=== PATIENT | female | born 1940 | race Two or more races ===

== ENCOUNTER 2023-01-31 07:38 | Outpatient (AMB) | payer OTHER, MEDICAID, SELFPAY ==
[2023-01-31 07:46] VITALS: BP 104/52; PULSE 71; O2SAT 96; BMI 37.8
--- NOTE | 2023-01-31 07:46 | MHC.PC.OV ---
Vital Signs 01/31/23 07:46 Height 4 ft 11 in Weight 187 lb BMI 37.8 BP 104/52 L Blood Pressure Location Lt brachial Position Sitting Pulse 71 Pulse Source Pulse Oximeter Pulse Oximetry (%) 96 Oxygen Delivery Method Room Air Intake Visit Reasons: [facility] care Patents Examiner Required: Yes Patents Examiner Name: [id number] Information Interpreted: non-clinical & clinical Allergies No Known Allergies Allergy (Verified 01/31/23 08:12) Medication List - Last Reconciled 01/31/23 by JIM Ford amlodipine 5 mg PO DAILY bisoprolol fumarate 5 mg PO DAILY fluticasone furoate-vilanterol 200-25 mcg/dose (Breo Ellipta) 1 inh inhalation DAILY gabapentin 600 mg PO DAILY isosorbide mononitrate ER 30 mg PO DAILY loratadine (Allergy Relief (loratadine)) 10 mg PO DAILY losartan 100 mg PO DAILY montelukast (Singulair) 10 mg PO DAILY sitagliptin phos-metformin 50-1,000 mg (Janumet) 1 tab PO BID spironolactone 25 mg PO DAILY Tobacco use date assessed: 01/31/23 Fall risk assessment: No Falls in past year Last assessed Fall Risk: 01/31/23 Dental Screening Dental Screen Date: 01/31/23 Did you have a dental visit in the last 12 months?: No Did you have a dental problem in the last 6 months where you did not have access to dental care?: No Was dental information given to patient?: No HPI HPI Comments History of Present Illness Details 82-year-old female new patient presents today to establish care. Past medical history significant for hypertension, type 2 diabetes mellitus, asthma, right knee arthritis and history of cardiac catheterization 3 years ago. Patient reports cardiac catheterization was unremarkable. Patient reports was previously followed by glaze supervisor and anesthesiologist and critical care. Referrals entered. Patient requiring prescriptions on all her medications, herbal medications sent. Patient does report ongoing right knee pain related to arthritis patient requesting refill on diclofenac by mouth, will send diclofenac cream to use as needed q.i.d. for arthritis pain. Complete fasting lab work ordered. Previous pcp in [place], Sami MARC Surgical History (Updated 01/31/23 @ 08:33 by JIM Ford) H/O cardiac catheterization Hx of cholecystectomy H/O total hysterectomy Family History (Updated 01/31/23 @ 08:22 by JIM Ford) Mother No problems noted. Father Diabetes Sister Breast cancer Sister Breast cancer Sister Liver cancer Social History (Updated 01/31/23 @ 08:23 by JIM Ford) Household Members: Family Housing: Other Alcohol intake: never Patient Tobacco Use Status: Never used Tobacco e-Cigarette/Vaping Use: Never Used Second Hand Smoke Exposure: No Current occupational status: disabled Cognitive needs: No Hearing needs: No Vision needs: Yes Questionnaire PHQ-9 Over the last 2 weeks, how often have you been bothered by any of the following problems? 1. Little interest or pleasure in doing things: not at all 2. Feeling down, depressed, or hopeless: not at all 3. Trouble falling or staying asleep, or sleeping too much: not at all 4. Feeling tired or having little energy: not at all 5. Poor appetite or overeating: not at all 6. Feeling bad about yourself - or that you are a failure or have let yourself or your family down: not at all 7. Trouble concentrating on things, such as reading the newspaper or watching television: not at all 8. Moving or speaking so slowly that other people could have noticed. Or the opposite - being so fidgety or restless that you have been moving around a lot more than usual: not at all 9. Thoughts that you would be better off or of hurting yourself in some way: not at all Total score: 0 Depression Screening Interpretation: Negative 50805 - PHQ-9 Billing: Yes Source: Developed by Drs. Kenneth Urban, Kelli Rowland, Mandeep Bangura and colleagues, with an educational sandeep from [employer]. Thrive Questionnaire Date Thrive assessed: 01/31/23 I am a: Patient What is your living situation today?: I have a steady place to live Within the past 12 months, did the food you bought not last and you didn't have the money to get more?: Never true Within the past 12 months, did you worry whether your food would run out before you got money to buy more?: Never true Do you have trouble paying for medicines?: No Do you have trouble getting transportation to medical appointments?: No Do you have trouble paying your heating and electricity bill?: No Do you have trouble taking care of your child, family member or friend?: No Do you have trouble with day-to-day activities such as bathing, preparing meals, shopping, managing finances, etc.?: No Are you currently unemployed and looking for a job?: No Are you interested in more education?: No Currently or been in a relationship where the following occur: no concerns reported AUDIT C Alcohol Use Questionnaire (AUDIT-C) 1. How often do you have a drink containing alcohol?: Never 3. How often do you have six or more drinks on one occasion?: Never Total Score: 0 BRADY-7 AMB Questionnaire BRADY-7 Date BRADY - 7 assessed: 01/31/23 Feeling nervous, anxious, or on edge: 0 = Not at all Not being able to stop or control worryin = Not at all Worrying too much about different things: 0 = Not at all Trouble relaxin = Not at all Being so restless that it is hard to sit still: 0 = Not at all Becoming easily annoyed or irritable: 0 = Not at all Feeling afraid as if something awful might happen: 0 = Not at all Total BRADY-7 score (0-4 normal; 5-9 mild; 10-14 moderate; 15-21 severe): 0 Source: Developed by Drs. Kenneth Urban, Kelli Rowland, Mandeep Bangura and colleagues, with an educational sandeep from [employer]. BRADY-7 Assessment Billing BRADY-7 Assessment Tool: BRADY-7 Assessment 17645 Review of Systems Const Denies chills, Denies fatigue, Denies fever(s) and Denies poor appetite Eyes Denies no additional complaints ENT Reports Normal hearing present Card Denies chest pain, Denies syncope, Denies rapid heart rate and Denies dyspnea Resp Denies cough and Denies dyspnea GI Denies change in stool character, Denies constipation, Denies diarrhea, Denies nausea and Denies vomiting Denies urinary frequency, Denies dysuria and Denies urinary urgency Neuro Reports Normal hearing present, Denies confusion and Denies syncope Psych Denies confusion Endo Denies fatigue Physical exam (Primary Care) Vital Signs: Last Vital Signs Pulse 71 01/31/23 07:46 BP 104/52 L 01/31/23 07:46 Pulse Ox 96 01/31/23 07:46 Oxygen Delivery Method Room Air 01/31/23 07:46 BMI result Body Mass Index 37.8 Tobacco/Smoking Status: Tobacco use Status Tobacco use date assessed 01/31/23 01/31/23 08:00 Patient Tobacco Use Status Never used Tobacco 01/31/23 08:23 e-Cigarette/Vaping Use Never Used 01/31/23 08:23 PHQ-9: PHQ-9 Score PHQ-9: Total score 0 01/31/23 08:09 Depression Screening Interpretation: Negative Thrive Assessment: Date of Thrive Assessment Date Thrive assessed 01/31/23 01/31/23 08:00 Currently or been in a relationship where the following occur: no concerns reported Const General: No confusion Orientation/consciousness: No confusion HENMT Head: Yes normocephalic and Yes atraumatic Eyes Conjunctivae: conjunctivae normal Chest Chest palpation & inspection: normal inspection of the chest Resp Effort & Inspection: normal respiratory effort Auscultation: clear to auscultation bilaterally, no crackles, no rhonchi and no wheezes Cardio Rate: regular rate Rhythm: regular rhythm Heart sounds: S1 normal heart sound present and S2 normal heart sound present Peripheral pulses: dorsalis pedis present GI Inspection: Yes normal to inspection General: Yes no CVA tenderness Back/Spine/Pelvis Back: no CVA tenderness Neuro General: No confusion Cranial nerves: Yes Normal hearing present Extrem General: No edema Results AMB Hemoglobin A1c AMB Hemoglobin A1c 6.3 % Last Edit by Meme Sauer CMA on 01/31/23 08:10 Results Reviewed Results Reviewed: Laboratory Last Values Hgb A1c (Clinic) 6.3 % (4.0-6.0) H 01/31/23 08:00 Assessment and Plan Assessment & Plan (1) Asthma: Code(s): J45.909 - Unspecified asthma, uncomplicated Plan: Continue on Breo Ellipta Referral placed to establish care with pulmonology. (2) H/O cardiac catheterization: Code(s): Z98.890 - Other specified postprocedural states Plan: Referral entered to Cardiology. (3) Arthritis of right knee: Code(s): M17.11 - Unilateral primary osteoarthritis, right knee Plan: Diclofenac cream sent to patient's pharmacy to apply to right knee for arthritis pain as needed. (4) Type 2 diabetes mellitus: Code(s): E11.9 - Type 2 diabetes mellitus without complications Plan: Hemoglobin A1c and fasting glucose ordered. Continue on Janumet 1 tab b.i.d. Patient educated to decrease the amount of carbohydrate intake such as pasta, bread, rice and potatoes are all sugar in addition to the sweet stuff. Remember that fruits are good but they also have sugar. (5) Hypertension: Code(s): I10 - Essential (primary) hypertension Plan: Continue on losartan 100 mg daily, Imdur, bisoprolol and spironolactone 25 mg daily. Follow low-salt diet exercise. Plan Follow-up in 3 months for physical exam. Orders: Orders AMB Hemoglobin A1c Today Z13.9 - Encounter for screening, unspecified TSH reflex Free T4 Today Z13.29 - Encounter for screening for other suspected endocrine disorder Complete Blood Count Auto Diff Today Z13.0 - Encounter for screening for diseases of the blood and blood-forming organs and certain disorders involving the immune mechanism Comprehensive [place]. Panel Fast Today E11.9 - Type 2 diabetes mellitus without complications Lipid Panel Today Z13.220 - Encounter for screening for lipoid disorders Hemoglobin A1c Today E11.9 - Type 2 diabetes mellitus without complications Vitamin D 25-OH Total Today Z13.21 - Encounter for screening for nutritional disorder Referrals Pulmonology Referral J45.909 - Unspecified asthma, uncomplicated Cardiology Referral Z98.890 - Other specified postprocedural states Medications: New fluticasone furoate-vilanterol 200-25 mcg/dose (Breo Ellipta) 1 inh inhalation DAILY 60 ea 1RF loratadine (Allergy Relief (loratadine)) 10 mg PO DAILY 30 tabs 3RF losartan 100 mg PO DAILY 30 tabs 3RF montelukast (Singulair) 10 mg PO DAILY 30 tabs 3RF spironolactone 25 mg PO DAILY 30 tabs 3RF sitagliptin phos-metformin 50-1,000 mg (Janumet) 1 tab PO BID 60 tabs 3RF amlodipine 5 mg PO DAILY 30 tabs 3RF bisoprolol fumarate 5 mg PO DAILY 30 tabs 3RF isosorbide mononitrate ER 30 mg PO DAILY 30 tabs 3RF sitagliptin phos-metformin 50-1,000 mg (Janumet) 1 tab PO BID 30 tabs 3RF gabapentin 600 mg PO DAILY 30 tabs 0RF diclofenac sodium 1% (Arthritis Pain (diclofenac)) apply to single elbow, wrist or hand; for hand includes palm/fingers/back of hand 2 grams topical QID 100 grams 0RF M17.11 - Unilateral primary osteoarthritis, right knee Coding Level of Care Code New Pt Level 4 (67647) Diagnoses Asthma J45.909 H/O cardiac catheterization Z98.890 Arthritis of right knee M17.11 Type 2 diabetes mellitus E11.9 Hypertension I10 Additional Codes BRADY-7 Assessment Billing - BRADY-7 Assessment Tool: BRADY-7 Assessment 94076 ([id number])
== END 2023-01-31 08:35 | disposition home or self-care (01) ==
PROVIDERS: PCP Nurse Practitioner Family; Visit Provider Nurse Practitioner Family
DX: J45.909 Unspecified asthma, uncomplicated (principal); Z98.890 Other specified postprocedural states; M17.11 Unilateral primary osteoarthritis, right knee; E11.9 Type 2 diabetes mellitus without complications; I10 Essential (primary) hypertension; Z13.9 Encounter for screening, unspecified
CPT/HCPCS: 83036; 99204

== ENCOUNTER 2023-05-10 14:26 | Outpatient (AMB) | payer MEDICARE, MEDICAID, SELFPAY ==
[2023-05-10 14:31] VITALS: BP 132/57; PULSE 73; O2SAT 95; BMI 35.2
--- NOTE | 2023-05-10 14:31 | MHC.OFFVIS ---
Intake Vital Signs 05/10/23 14:31 Height 4 ft 11 in Weight 174 lb 2.643 oz BMI 35.2 BP 132/57 L Blood Pressure Location Rt brachial Position Sitting Pulse 73 Pulse Source Doppler Pulse Oximetry (%) 95 Oxygen Delivery Method Room Air Intake Visit Reasons: Asthma Allergies gluten Adverse Reaction (Intermediate, Uncoded 05/10/23 14:35) Diarrhea HPI Asthma HPI Details 83-year-old lady, lifetime nonsmoker, with underlying history of asthma and pulmonary nodule previously evaluated with PET referred for pulmonary evaluation. Patient states that she has had asthma for approximately 30 years. She has been using Breo and albuterol MDI with reasonable control of her symptoms. Patient states that she has had remote PET scan to evaluate lung nodule, but she has not show about results. She does complain of environmental allergies. She does have a dog as a pet. 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 [facility] Surgical History (Updated 01/31/23 @ 08:33 by JIM Ford) H/O cardiac catheterization Hx of cholecystectomy H/O total hysterectomy Family History (Updated 01/31/23 @ 08:22 by JIM Ford) Mother No problems noted. Father Diabetes Sister Breast cancer Sister Breast cancer Sister Liver cancer Social History Household Members: Family Housing: Other Alcohol intake: never Patient Tobacco Use Status: Never used Tobacco e-Cigarette/Vaping Use: Never Used Second Hand Smoke Exposure: No Current occupational status: disabled Cognitive needs: No Hearing needs: No Vision needs: Yes Review of Systems Const Denies daytime sleepiness, Denies excessive sweating, Denies fatigue, Denies fever(s), Denies lethargy, Denies malaise, Denies night sweats, Denies snoring and Denies weight loss Eyes Denies blurry vision and Denies itchy eyes ENT Denies nasal congestion, Denies post nasal drip, Denies sinus pain, Denies sinus pressure and Denies other ( Thrush) Card Denies chest pain, Denies pedal edema, Denies dyspnea, Denies orthopnea and Denies paroxysmal nocturnal dyspnea Resp Denies cough, Denies hemoptysis, Denies excessive phlegm production, Denies dyspnea, Denies snoring and Denies wheezing GI Denies abdominal pain and Denies heartburn Musc Denies myalgias, Denies arthralgias and Denies joint swelling Skin/Breast Denies rash Neuro Denies memory loss and Denies seizure-like activity Psych Denies abnormal sleep pattern, Denies anxiety and Denies memory loss Endo Denies excessive sweating, Denies fatigue and Denies heat intolerance Ángel/Lymph Denies easy bruising Aller/Immun Denies itchy eyes, Denies seasonal rhinorrhea and Denies wheezing Physical Exam Vital Signs: Last Vital Signs Pulse 73 05/10/23 14:31 BP 132/57 L 05/10/23 14:31 Pulse Ox 95 05/10/23 14:31 Oxygen Delivery Method Room Air 05/10/23 14:31 BMI result Body Mass Index 35.2 Const General: no acute distress and alert Nutritional Appearance: obese Orientation/consciousness: Other orientation findings ( oriented) HEENT Head: Yes atraumatic Eyes General: appearance normal, both eyes and all related structures Sclerae: sclerae normal EOM: EOMs intact bilaterally Neck Neck: Yes supple Lymphatic: no lymphadenopathy noted Resp Effort & Inspection: normal respiratory effort and no use of accessory muscles Auscultation: clear to auscultation bilaterally Cardio Rate: regular rate Rhythm: regular rhythm Heart sounds: no gallops, no murmurs and no rubs Skin General skin exam: other ( warm) Extrem General: No clubbing, No cyanosis and No edema Assessment & Plan Assessment & Plan (1) Asthma: Code(s): J45.909 - Unspecified asthma, uncomplicated Plan: At this time reasonably well controlled on Breo and albuterol MDI. Will obtain full PFT. (2) Pulmonary nodule 1 cm or greater in diameter: Code(s): R91.1 - Solitary pulmonary nodule Plan: Previously evaluated with PET. Will obtain CT chest for further evaluation. (3) Environmental allergies: Code(s): Z91.09 - Other allergy status, other than to drugs and biological substances Plan: Will obtain IgE level and RAST panel for further evaluation. Orders: Orders Complete Blood Count Auto Diff Today Z91.09 - Other allergy status, other than to drugs and biological substances PFT pulmonary function test Today J45.909 - Unspecified asthma, uncomplicated Resp Allergy Profile Region I Today J45.909 - Unspecified asthma, uncomplicated CT chest wo IV con Today R91.1 - Solitary pulmonary nodule Coding Level of Care Code New Pt Level 4 (11840) Diagnoses Asthma J45.909 Pulmonary nodule 1 cm or greater in diameter R91.1 Environmental allergies Z91.09
== END 2023-05-10 14:54 | disposition home or self-care (01) ==
PROVIDERS: PCP Nurse Practitioner Family; Referring Provider Nurse Practitioner Family; Visit Provider Internal Medicine Pulmonary Disease
DX: J45.909 Unspecified asthma, uncomplicated (principal); R91.1 Solitary pulmonary nodule; Z91.09 Other allergy status, other than to drugs and biological substances
CPT/HCPCS: 99204

== ENCOUNTER 2023-05-10 14:26 | Outpatient (REF) | payer MEDICARE, SELFPAY ==
[2023-05-10 15:17] LABS: MANUAL DIFF FLAG NO
[2023-05-10 15:34] LABS: Basophils Percent Auto 0.3 % (0-2); Eosinophils Percent Auto 0.6 % (0-4); Hematocrit 34.7 % (37.0-47.0); Imm Gran Abs Auto 0.02 X10*3/uL (0.00-0.03); Imm Gran Pct Auto 0.3 % (0.0-0.4); Lymphocytes Absolute Auto 1.4 X10*3/uL (1.2-4.9); Lymphocytes Percent Auto 21.5 % (20-40); Mean Corpuscular HGB Conc 31.7 g/dl (31.0-35.0); Mean Corpuscular Hemoglobin 28.4 pg (27.0-33.0); Mean Corpuscular Volume 89.4 fL (80.0-98.0); Mean Platelet Volume 10.5 fL (9.4-12.3); Monocytes Absolute Auto 0.7 X10*3/uL (0.1-1.2); Monocytes Percent Auto 9.9 % (2-11); Neutrophils Absolute Auto 4.5 x10*3/uL (2.0-8.3); Neutrophils Percent Auto 67.4 % (45-73); Platelet Count 214 X10*3/uL (160-400); Red Blood Count 3.88 X10*6/uL (4.20-5.50); Red Cell Distribution Width 14.4 % (11.0-16.0); White Blood Count 6.6 X10*3/uL (4.8-10.8)
[2023-05-12 19:14] LABS: Class Alternaria alternata 0; Class Aspergillus fumigatus 0; Class Bermuda Grass 0; Class Birch 0; Class Cat Dander 0/1; Class Cladosporium herbarum 0; Class Cockroach 0; Class Common Ragweed 3; Class Cottonwood 0; Class Derm. pterony 3; Class Dermatophagoides farinae 2; Class Dog Dander 3; Class Elm 0; Class Maple Box Elder 0; Class Mountain Cedar 0; Class Mouse Urine Protein 0; Class Mugwort 0; Class Oak 0; Class Penicillium crysogenum 0; Class Rough Pigweed 0; Class Sheep Sorrel 0; Class Sycamore 0; Class Timothy Grass 0; Class Walnut Tree 0; Class White Ash 0; Class White Mulberry 0; D001 IgE D pteronyssinus 4.32 kU/L; D002 - IgE D farinae 2.55 kU/L; E001 - IgE Cat Dander 0.33 kU/L; E005 - IgE Dog Dander 4.12 kU/L; E072-IgE Mouse Urine <0.10 kU/L; G002 IgE Bermuda Grass <0.10 kU/L; G006 - IgE Timothy Grass <0.10 kU/L; I006-IgE Cockroach, German <0.10 kU/L; Immunoglobulin E 70 kU/L (<OR=114); M001 IgE Penicillium chrysogen <0.10 kU/L; M002 - IgE Cladosporium herbar <0.10 kU/L; M003 - IgE Aspergillus fumigat <0.10 kU/L; M006 - IgE Alternaria alternat <0.10 kU/L; T001 IgE Maple/Box Elder <0.10 kU/L; T003 IgE Common Silver Birch <0.10 kU/L; T006 - IgE Cedar, Mountain <0.10 kU/L; T007 - IgE Oak, White <0.10 kU/L; T008 IgE Elm, American <0.10 kU/L; T010 - IgE Walnut <0.10 kU/L; T011 - IgE Maple Leaf Sycamore <0.10 kU/L; T014 - IgE Cottonwood <0.10 kU/L; T015 - IgE Ash, White <0.10 kU/L; T070 - IgE White Mulberry <0.10 kU/L; W001 - IgE Ragweed, Short 8.68 kU/L; W006 - IgE Mugwort <0.10 kU/L; W014 IgE Pigweed, Common <0.10 kU/L; W018 IgE Sheep Sorrel <0.10 kU/L
== END 2023-05-10 14:27 | disposition home or self-care (01) ==
LOC: HO.LAB 14:26
PROVIDERS: PCP Nurse Practitioner Family; Referring Provider Nurse Practitioner Family; Visit Provider Internal Medicine Pulmonary Disease
DX: J45.909 Unspecified asthma, uncomplicated (principal); Z91.09 Other allergy status, other than to drugs and biological substances; R91.1 Solitary pulmonary nodule
CPT/HCPCS: 36415; 82785; 85025; 86003; 99202

== ENCOUNTER 2023-05-27 10:04 | Outpatient (REF) | payer MEDICARE, SELFPAY ==
[2023-05-27 10:31] LABS: MANUAL DIFF FLAG NO
[2023-05-27 11:07] LABS: Basophils Percent Auto 0.4 % (0-2); Eosinophils Absolute Auto 0.1 X10*3/uL (0.0-0.4); Eosinophils Percent Auto 2.2 % (0-4); Hemoglobin 11.2 g/dl (12.0-16.0); Imm Gran Abs Auto 0.01 X10*3/uL (0.00-0.03); Imm Gran Pct Auto 0.2 % (0.0-0.4); Lymphocytes Absolute Auto 1.1 X10*3/uL (1.2-4.9); Lymphocytes Percent Auto 24.3 % (20-40); Mean Corpuscular Hemoglobin 28.6 pg (27.0-33.0); Mean Corpuscular Volume 89.3 fL (80.0-98.0); Mean Platelet Volume 10.6 fL (9.4-12.3); Monocytes Absolute Auto 0.5 X10*3/uL (0.1-1.2); Neutrophils Absolute Auto 2.9 x10*3/uL (2.0-8.3); Neutrophils Percent Auto 62.9 % (45-73); Platelet Count 193 X10*3/uL (160-400); Red Blood Count 3.92 X10*6/uL (4.20-5.50); Red Cell Distribution Width 14.6 % (11.0-16.0); White Blood Count 4.6 X10*3/uL (4.8-10.8)
[2023-05-27 11:33] LABS: Alanine Aminotransferase 10 U/L (0-31); Albumin Level 3.6 g/dL (3.5-5.0); Alkaline Phosphatase 62 U/L (39-117); Anion Gap 16 (12-20); Aspartate Amino Transferase 16 U/L (5-31); Bilirubin Total 0.4 mg/dL (0.0-1.0); Blood Urea Nitrogen 17 mg/dL (9-16); Calcium 9.7 mg/dL (8.4-10.2); Carbon Dioxide 26 mmol/L (22-29); Chloride 107 mmol/L (96-108); Cholesterol 183 mg/dL (<200); Estimated Glomerular Filt Rate 41; Glucose Fasting 142 mg/dL (60-99); HDL Cholesterol 50 mg/dL (>40); LDL Cholesterol Calculated 111 mg/dL (<100); Potassium 4.5 mmol/L (3.3-5.1); Sodium 144 mmol/L (135-145); Total Protein 7.1 g/dL (6.5-8.0); Triglycerides 113 mg/dL (<150)
[2023-05-27 11:38] LABS: Estimated Average Glucose 131 mg/dL; Hemoglobin A1c % 6.2 % (<6.0)
[2023-05-27 11:49] LABS: TSH reflex Free T4 1.19 uIU/mL (0.32-4.0); Vitamin D 25-OH Total 21.6 ng/mL (>30)
== END 2023-05-27 10:05 | disposition home or self-care (01) ==
LOC: HO.LAB 10:04
PROVIDERS: Visit Provider Nurse Practitioner Family
DX: Z13.29 Encounter for screening for other suspected endocrine disorder (principal); Z13.0 Encounter for screening for diseases of the blood and blood-forming organs and certain disorders involving the immune mechanism; Z13.220 Encounter for screening for lipoid disorders; Z13.21 Encounter for screening for nutritional disorder; E11.9 Type 2 diabetes mellitus without complications
CPT/HCPCS: 36415; 80053; 80061; 82306; 83036; 84443; 85025

== ENCOUNTER 2023-06-09 13:39 | Emergency (ER) | payer MEDICARE, OTHER, SELFPAY ==
--- NOTE | ~2023-06-09 | XR_ITS ---
EXAMINATION: XR KNEE, RIGHT CLINICAL INFORMATION: Pain. COMPARISON: None available. TECHNIQUE: Four views of the right knee. FINDINGS: The bone mineralization is within normal limits. There is mild to moderate medial, lateral and mild patellofemoral degenerative change with loss of joint space, subchondral sclerosis and osteophyte formation. No fracture is seen. There is no joint effusion. The soft tissues are unremarkable. XR/XR knee RT 3V IMPRESSION: 1. No fracture, dislocation or joint effusion is seen. 2. There is mild to moderate degenerative change.
--- NOTE | ~2023-06-09 | XR_ITS ---
EXAMINATION: XR FOOT, LEFT CLINICAL INFORMATION: Pain. COMPARISON: None available. TECHNIQUE: AP, lateral, and oblique views of the left foot. FINDINGS: The bony structures are slightly osteopenic. No fracture is seen. There is mild interphalangeal degenerative change with mild loss of joint space, subchondral sclerosis and osteophyte formation. There is mild midfoot degenerative change with superior osteophyte formation. A prominent heel spur is noted. There is mild soft tissue swelling about the foot. Arteriovascular calcification is noted. XR/XR foot LT min 3V IMPRESSION: 1. No fracture or dislocation. 2. Mild degenerative changes. 3. Heel spur.
[2023-06-09 14:45] VITALS: BP 109/85; PULSE 86; RESP 20; TEMP 37.2; O2SAT 96
--- NOTE | 2023-06-09 15:13 | ED_ITS ---
HPI - General Adult General Chief complaint: General Medical Stated complaint: pain in feet Time Seen by Provider: 06/09/23 21:45 Source: patient, family ( Daughter) and RN notes reviewed Limitations: language barrier History of Present Illness HPI narrative: 83-year-old female with a history of diabetes, asthma, hypertension, presents with granddaughter for evaluation of left foot pain and right knee pain. Patient reports that this has been going on for some time but feels as though it has been getting worse recently , over the past 2 months. She has not had any evaluation for this. Denies any direct trauma. No falls. Patient lives with family, is able to ambulate without difficulty. Patient states that this is the same pain that she has had. She reports her glucose is fairly well controlled. She is compliant with her medications. She denies any strenuous activity. Related Data Home Medications Medication Instructions Recorded Confirmed albuterol sulfate 90 mcg/actuation inhalation 05/10/23 aerosol inhaler famotidine 20 mg tablet mg PO 05/10/23 rosuvastatin 20 mg tablet 20 mg PO DAILY 05/10/23 Previous Rx's Medication Instructions Recorded amlodipine 5 mg tablet 5 mg PO DAILY #30 tabs 01/31/23 diclofenac sodium 1 % topical gel 2 g topical QID #100 grams 01/31/23 (Arthritis Pain (diclofenac)) fluticasone furoate 200 1 inh inhalation DAILY #60 ea 01/31/23 mcg-vilanterol 25 mcg/dose inhalation powder (Breo Ellipta) isosorbide mononitrate 30 mg 30 mg PO DAILY #30 tabs 01/31/23 tablet,extended release 24 hr loratadine 10 mg tablet (Allergy 10 mg PO DAILY #30 tabs 01/31/23 Relief (loratadine)) losartan 100 mg tablet 100 mg PO DAILY #30 tabs 01/31/23 montelukast 10 mg tablet 10 mg PO DAILY #30 tabs 01/31/23 (Singulair) sitagliptin phosphate 50 1 tab PO BID #60 tabs 01/31/23 mg-metformin 1,000 mg tablet (Janumet) spironolactone 25 mg tablet 25 mg PO DAILY #30 tabs 01/31/23 bisoprolol fumarate 5 mg tablet 5 mg PO DAILY #90 tabs 05/24/23 gabapentin 600 mg tablet 600 mg PO DAILY #30 tabs 05/26/23 cholecalciferol (vitamin D3) 25 25 mcg PO DAILY 90 days #90 caps 05/29/23 mcg (1,000 unit) capsule Allergies Allergy/AdvReac Type Severity Reaction Status Date / Time gluten AdvReac Intermediate Diarrhea Uncoded 06/09/23 14:49 Review of Systems 2 Constitutional: Constitutional: Denies chills, Denies fever(s) and Denies headache(s) Eyes: Eyes: Denies change in vision and Denies other (No redness.) ENT: Denies headache(s), Denies nasal congestion, Denies nasal discharge, Denies neck pain and Denies sore throat Cardiovascular: Cardiovascular: Denies chest pain, Denies palpitations, Denies dyspnea, Denies dyspnea on exertion and Denies orthopnea Respiratory: Respiratory: Denies cough, Denies dyspnea and Denies dyspnea on exertion Gastrointestinal: Gastrointestinal: Denies abdominal pain, Denies melena, Denies hematochezia, Denies diarrhea, Denies nausea and Denies vomiting Genitourinary: Genitourinary: Denies dysuria and Denies urinary urgency Musculoskeletal: Musculoskeletal: Denies back pain, Denies muscle weakness, Denies neck pain and Denies numbness Integumentary/Breasts: Skin/Breast: Denies rash Neurologic: Denies headache(s), Denies focal weakness and Denies numbness Psychiatric: Psychiatric: Denies depression Endocrine: Endocrine: Denies palpitations PMF Past Medical History Surgical History (Updated 01/31/23 @ 08:33 by JIM Ford) H/O cardiac catheterization Hx of cholecystectomy H/O total hysterectomy Family History Family History Mother No problems noted. Father Diabetes Sister Breast cancer Sister Breast cancer Sister Liver cancer Social History Social History Household Members: Family Housing: Other Alcohol intake: never Patient Tobacco Use Status: Never used Tobacco Smoked in Last 30 Days: No e-Cigarette/Vaping Use: Never Used Second Hand Smoke Exposure: No Use of substances other than those prescribed or required for medical reasons: No Advance Directives: No Advance Directives Information Provided: No Current occupational status: disabled Cognitive needs: No Hearing needs: No Vision needs: Yes Physical Exam ED Vital Signs: Vital Signs - 24 hr 06/09/23 14:45 Temperature 98.9 F Pulse Rate 86 Respiratory Rate 20 Blood Pressure 109/85 Pulse Oximetry 96 Oxygen Delivery Method Room Air BMI result Body Mass Index 30.0 Const General: cooperative, no acute distress, alert and awake Resp Auscultation: clear to auscultation bilaterally Cardio Rate: regular rate Rhythm: regular rhythm Extrem Other: Drug Department Worker is 5/5 bilaterally. The patient is able to ambulate without difficulty. There is no calf tenderness or pedal edema. There is diffuse tenderness to the left foot. There is diffuse tenderness to the right knee without any edema or ecchymosis. There is hyperpigmentation to the OR to the feet bilaterally, appears chronic in nature. There is a superficial abrasion proximally 0.5 cm to the medial aspect of the right foot. There is no streaking or discharge. The remaining of the skin on the feet bilaterally is intact, including between the toes. The nails are intact. DP pulses are +1 and equal bilaterally. Course Course Course Narrative: This is an RME: Additional HPI, ROS, PE not included below will be deferred to primary provider. Patient is 83 old female who presents emergency department for evaluation of pain and swelling to the lower extremities. Has history of Chronic pain to the bilateral or extremities particularly to knees. Over the past month she is developed swelling and discoloration, which is reportedly worse over the past few days. Denies CP, SOB, hx DVT/PE. Plan: Labs Medical Decision Making Medical Decision Making [facility] Narrative: ED 3-year-old female with history of diabetes, hypertension, asthma, with bilateral lower extremity pain, concern for possible diabetic neuropathy. Preliminary x-rays do not reveal any fracture. Labs within normal ranges. No evidence of DKA. No evidence of acute trauma. Patient has been ambulatory in the emergency department. She would like to be discharged home and will continue symptomatic treatment. She will follow up with her PCP. No further questions at this time. Differential Diagnosis Differential Diagnoses: The differential diagnosis associated with the presentation includes Diabetic neuropathy Fracture Sprain Claudication Admission/Observation Consideration of admission/observation: Escalation of care including admission/observation considered consideration for possible admission if medically indicated, however not at this time Lab Data [facility] Lab Attestation statement: I reviewed the patient's lab results. 06/09/23 15:32 06/09/23 15:32 Labs: Lab Results 06/09/23 Range/Units 15:32 WBC 6.7 (4.8-10.8) X10*3/uL RBC 3.92 L (4.20-5.50) X10*6/uL Hgb 11.3 L (12.0-16.0) g/dl Hct 35.4 L (37.0-47.0) % MCV 90.3 (80.0-98.0) fL MCH 28.8 (27.0-33.0) pg MCHC 31.9 (31.0-35.0) g/dl RDW 14.7 (11.0-16.0) % Plt Count 190 (160-400) X10*3/uL MPV 10.5 (9.4-12.3) fL Immature Gran % (Auto) 0.3 (0.0-0.4) % Neut % (Auto) 68.5 (45-73) % Lymph % (Auto) 20.7 (20-40) % [place] % (Auto) 9.1 (2-11) % Eos % (Auto) 1.0 (0-4) % Baso % (Auto) 0.4 (0-2) % Lymph # (Auto) 1.4 (1.2-4.9) X10*3/uL [place] # (Auto) 0.6 (0.1-1.2) X10*3/uL Eos # (Auto) 0.1 (0.0-0.4) X10*3/uL Baso # (Auto) 0.0 (0.0-0.2) X10*3/uL Abs Immat Gran (auto) 0.02 (0.00-0.03) X10*3/uL Absolute Neuts (auto) 4.6 (2.0-8.3) x10*3/uL Absolute Nucleated RBC 0.000 (0.0-0.012) X10*3/uL Nucleated RBC % (auto) 0.0 (0.0-0.2) /100WBC PT 12.1 (11.1-13.3) SEC INR 1.0 (0.9-1.1) Sodium 142 (135-145) mmol/L Potassium 4.5 (3.3-5.1) mmol/L Chloride 107 (96-108) mmol/L Carbon Dioxide 25 (22-29) mmol/L Anion Gap 15 (12-20) BUN 22 H (9-16) mg/dL Creatinine 1.08 (0.5-1.4) mg/dL Estim Creat Clear Calc 39.4 Estimated GFR 48 Random Glucose 108 (60-115) mg/dL Calcium 9.2 (8.4-10.2) mg/dL Magnesium 1.8 (1.6-2.6) mg/dL Total Bilirubin 0.2 (0.0-1.0) mg/dL AST 18 (5-31) U/L ALT 13 (0-31) U/L Alkaline Phosphatase 63 (39-117) U/L B-Natriuretic Peptide 104 H (<100) pg/mL Total Protein 7.3 (6.5-8.0) g/dL Albumin 3.9 (3.5-5.0) g/dL Independent Interpretation I performed an independent interpretation of an: Plain X-Ray ( no acute process on left foot or right knee) Independent Historian Clinical information obtained from an independent historian. 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 We will contact you after official reading if there is any abnormality requiring additional follow-up. Closely monitor glucose levels. Rest. Avoid strenuous activity. You may continue Tylenol available [id number] for pain. Follow-up with your primary care provider. Call this week to schedule a follow-up appointment. Return to the emergency department if you have any worsening of symptoms, or any concerns. Get well soon! Prescriptions: No Action bisoprolol fumarate 5 mg tablet 5 mg PO DAILY Qty: 90 0RF gabapentin 600 mg tablet 600 mg PO DAILY Qty: 30 0RF cholecalciferol (vitamin D3) 25 mcg (1,000 unit) capsule 25 mcg PO DAILY 90 Days Qty: 90 0RF amlodipine 5 mg tablet 5 mg PO DAILY Qty: 30 3RF fluticasone furoate-vilanterol [Breo Ellipta] 200-25 mcg/dose blister with device 1 inh inhalation DAILY Qty: 60 1RF isosorbide mononitrate 30 mg tablet extended release 24 hr 30 mg PO DAILY Qty: 30 3RF loratadine [Allergy Relief (loratadine)] 10 mg tablet 10 mg PO DAILY Qty: 30 3RF losartan 100 mg tablet 100 mg PO DAILY Qty: 30 3RF montelukast [Singulair] 10 mg tablet 10 mg PO DAILY Qty: 30 3RF spironolactone 25 mg tablet 25 mg PO DAILY Qty: 30 3RF Janumet 50-1,000 mg tablet 1 tab PO BID Qty: 60 3RF diclofenac sodium [Arthritis Pain (diclofenac)] 1 % gel 2 g topical QID Qty: 100 0RF Rx Instructions: apply to single elbow, wrist or hand; for hand includes palm/fingers/back of hand albuterol sulfate 90 mcg/actuation HFA aerosol inhaler inhalation rosuvastatin 20 mg tablet 20 mg PO DAILY famotidine 20 mg tablet PO Print Language: Mongolian
[2023-06-09 15:36] LABS: MANUAL DIFF FLAG NO
[2023-06-09 15:38] LABS: Basophils Percent Auto 0.4 % (0-2); Eosinophils Absolute Auto 0.1 X10*3/uL (0.0-0.4); Hematocrit 35.4 % (37.0-47.0); Hemoglobin 11.3 g/dl (12.0-16.0); Imm Gran Abs Auto 0.02 X10*3/uL (0.00-0.03); Imm Gran Pct Auto 0.3 % (0.0-0.4); Lymphocytes Absolute Auto 1.4 X10*3/uL (1.2-4.9); Lymphocytes Percent Auto 20.7 % (20-40); Mean Corpuscular HGB Conc 31.9 g/dl (31.0-35.0); Mean Corpuscular Hemoglobin 28.8 pg (27.0-33.0); Mean Corpuscular Volume 90.3 fL (80.0-98.0); Mean Platelet Volume 10.5 fL (9.4-12.3); Monocytes Absolute Auto 0.6 X10*3/uL (0.1-1.2); Monocytes Percent Auto 9.1 % (2-11); Neutrophils Absolute Auto 4.6 x10*3/uL (2.0-8.3); Neutrophils Percent Auto 68.5 % (45-73); Platelet Count 190 X10*3/uL (160-400); Red Blood Count 3.92 X10*6/uL (4.20-5.50); Red Cell Distribution Width 14.7 % (11.0-16.0); White Blood Count 6.7 X10*3/uL (4.8-10.8)
[2023-06-09 15:44] LABS: Prothrombin Time 12.1 SEC (11.1-13.3)
[2023-06-09 15:51] LABS: Alanine Aminotransferase 13 U/L (0-31); Albumin Level 3.9 g/dL (3.5-5.0); Alkaline Phosphatase 63 U/L (39-117); Anion Gap 15 (12-20); Aspartate Amino Transferase 18 U/L (5-31); Bilirubin Total 0.2 mg/dL (0.0-1.0); Blood Urea Nitrogen 22 mg/dL (9-16); Calcium 9.2 mg/dL (8.4-10.2); Carbon Dioxide 25 mmol/L (22-29); Chloride 107 mmol/L (96-108); Creatinine Clr Calc Pharmacy 39.4; Estimated Glomerular Filt Rate 48; Glucose Random 108 mg/dL (60-115); Magnesium 1.8 mg/dL (1.6-2.6); Potassium 4.5 mmol/L (3.3-5.1); Sodium 142 mmol/L (135-145); Total Protein 7.3 g/dL (6.5-8.0)
[2023-06-09 15:57] LABS: B Type Natriuretic Peptide 104 pg/mL (<100)
--- NOTE | 2023-06-09 21:32 | PC.NURSE ---
During assessment, it is observed that pt is moving bilat legs indepedently, crossing and uncrossing legs with no distress.
[2023-06-09 23:54] VITALS: BP 172/77; PULSE 72; RESP 16; TEMP 36.4; O2SAT 93
== END 2023-06-10 00:01 | disposition home or self-care (01) ==
PROVIDERS: Nurse Practitioner Family; Emergency Provider Student in an Organized Health Care Education/Training Program
DX: M25.561 Pain in right knee (principal); M79.672 Pain in left foot; E11.9 Type 2 diabetes mellitus without complications; I10 Essential (primary) hypertension; Z79.02 Long term (current) use of antithrombotics/antiplatelets; Z79.899 Other long term (current) drug therapy
CPT/HCPCS: 36415; 73562; 73630; 80053; 83735; 83880; 85025; 85610; 99283; 99284

== ENCOUNTER 2023-06-13 14:55 | Outpatient (REF) | payer MEDICARE, SELFPAY ==
--- NOTE | ~2023-06-13 | CT_ITS ---
EXAMINATION: CT CHEST WITHOUT CONTRAST CLINICAL INFORMATION: Solitary pulmonary nodule. COMPARISON: None available. TECHNIQUE: Multidetector volumetric CT imaging of the chest was done. Axial MIP volume rendering provided. Sagittal and coronal reformatted images were obtained. This CT examination was performed using dose optimization techniques as appropriate, variously including the following: *Automated exposure control *Adjustment of mA and/or kV according to patient size (this includes techniques or standardized protocols for targeted exams where dose is matched to indication/reason for exam; i.e. extremities or head) *Use of iterative reconstruction technique DLP: 156 mGy-cm FINDINGS: LUNGS: 8 mm nodule left lower lobe on image 34 of series 7. Linear atelectasis versus scarring in the lower lobes. No airspace consolidation. Central airways are patent. MEDIASTINUM: No bulky axillary, hilar or mediastinal lymphadenopathy. Great vessels are of normal caliber. Heart size is normal. No pericardial effusion. CORONARY ARTERY CALCIFICATION: Moderate. PLEURA: No pleural effusion. UPPER ABDOMEN: Status post cholecystectomy. OSSEOUS STRUCTURES: No destructive bone lesions. CT/CT chest wo IV con IMPRESSION: 8 mm left lower lobe pulmonary nodule. No prior studies are available for comparison. Follow-up chest CT in 3-6 months is advised.
== END 2023-06-13 14:56 | disposition home or self-care (01) ==
LOC: HO.CT 14:55
PROVIDERS: PCP Internal Medicine; Visit Provider Internal Medicine Pulmonary Disease
DX: R91.1 Solitary pulmonary nodule (principal)
CPT/HCPCS: 71250

== ENCOUNTER 2023-06-21 13:41 | Outpatient (AMB) | payer MEDICARE, SELFPAY ==
--- NOTE | 2023-06-21 13:44 | A.OFFVIS_ITS ---
Intake Vital Signs 06/21/23 13:45 Height 5 ft 4 in Weight 171 lb 15.369 oz BMI 29.5 BP 122/62 Blood Pressure Location Rt brachial Position Sitting Pulse 79 Pulse Source Doppler Pulse Oximetry (%) 96 Oxygen Delivery Method Room Air Intake Visit Reasons: Asthma Collection Systems Consultant Required: Yes Collection Systems Consultant Name: Natalie Cecil Saldivar Allergies gluten Adverse Reaction (Intermediate, Uncoded 06/09/23 14:49) Diarrhea HPI Asthma HPI Details 83-year-old lady, lifetime nonsmoker, wi th underlying history of asthma and pulmonary nodule previously evaluated with PET referred for pulmonary evaluation. Patient states that she has had asthma for approximately 30 years. She has been using Breo and albuterol MDI with reasonable control of her symptoms. Patient states that she has had remote PET scan to evaluate lung nodule, but she has not show about results. She does complain of environmental allergies. She does have a dog as a pet. 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 After the last office visit patient had had CT chest that demonstrated left lower lobe 8 mm nodule. She continues on Breo with good control of her symptoms. Patient also finished immunologic workup. She denies recent exacerbations. [facility] Surgical History (Updated 01/31/23 @ 08:33 by JIM Ford) H/O cardiac catheterization Hx of cholecystectomy H/O total hysterectomy Family History Mother No problems noted. Father Diabetes Sister Breast cancer Sister Breast cancer Sister Liver cancer Social History Household Members: Family Housing: Other Alcohol intake: never Patient Tobacco Use Status: Never used Tobacco e-Cigarette/Vaping Use: Never Used Second Hand Smoke Exposure: No Current occupational status: disabled Cognitive needs: No Hearing needs: No Vision needs: Yes Review of Systems Const Denies daytime sleepiness, Denies excessive sweating, Denies fatigue, Denies fever(s), Denies lethargy, Denies malaise, Denies night sweats, Denies snoring and Denies weight loss Eyes Denies blurry vision and Denies itchy eyes ENT Denies nasal congestion, Denies post nasal drip, Denies sinus pain, Denies sinus pressure and Denies other ( Thrush) Card Denies chest pain, Denies pedal edema, Denies dyspnea, Denies orthopnea and Denies paroxysmal nocturnal dyspnea Resp Denies cough, Denies hemoptysis, Denies excessive phlegm production, Denies dyspnea, Denies snoring and Denies wheezing GI Denies abdominal pain and Denies heartburn Musc Denies myalgias, Denies arthralgias and Denies joint swelling Skin/Breast Denies rash Neuro Denies memory loss and Denies seizure-like activity Psych Denies abnormal sleep pattern, Denies anxiety and Denies memory loss Endo Denies excessive sweating, Denies fatigue and Denies heat intolerance Ángel/Lymph Denies easy bruising Aller/Immun Denies itchy eyes, Denies seasonal rhinorrhea and Denies wheezing Physical Exam Vital Signs: Last Vital Signs Pulse 79 06/21/23 13:45 BP 122/62 06/21/23 13:45 Pulse Ox 96 06/21/23 13:45 Oxygen Delivery Method Room Air 06/21/23 13:45 BMI result Body Mass Index 29.5 Const General: no acute distress and alert Nutritional Appearance: not obese Orientation/consciousness: Other orientation findings ( oriented) HEENT Head: Yes atraumatic Eyes General: appearance normal, both eyes and all related structures Sclerae: sclerae normal EOM: EOMs intact bilaterally Neck Neck: Yes supple Lymphatic: no lymphadenopathy noted Resp Effort & Inspection: normal respiratory effort and no use of accessory muscles Auscultation: clear to auscultation bilaterally Cardio Rate: regular rate Rhythm: regular rhythm Heart sounds: no gallops, no murmurs and no rubs Skin General skin exam: other ( warm) Extrem General: No clubbing, No cyanosis and No edema Assessment & Plan Assessment & Plan (1) Pulmonary nodule: Code(s): R91.1 - Solitary pulmonary nodule Plan: Results of CT chest reviewed - left lower lobe 8 mm nodule. Will repeat CT chest in 4 months. (2) Asthma: Code(s): J45.909 - Unspecified asthma, uncomplicated Plan: Well controlled on Breo and albuterol MDI. Continue current regimen. PFT is pending. (3) Environmental allergies: Code(s): Z91.09 - Other allergy status, other than to drugs and biological substances Plan: Results for immunologic workup reviewed. Patient does have significant allergic component to her symptoms. If her symptoms stop being controlled on inhaled corticosteroid, will consider Xolair. Medications: New azithromycin For 250 mg dose pack: take 500 mg today (day 1), then 250 mg for 4 days (days 2-5) PO 6 tabs 0RF Changed From albuterol sulfate 90 mcg/actuation inhalation To albuterol sulfate 90 mcg/actuation 2 puffs inhalation Q4H PRN 1 ea 6RF shortness of breath or wheezing 30 days Refilled fluticasone furoate-vilanterol 200-25 mcg/dose (Breo Ellipta) 1 inh inhalation DAILY 60 ea 6RF Coding Level of Care Code Est Pt Level 4 (69414) Diagnoses Pulmonary nodule R91.1 Asthma J45.909 Environmental allergies Z91.09
[2023-06-21 13:45] VITALS: BP 122/62; PULSE 79; O2SAT 96; BMI 29.5
== END 2023-06-21 13:58 | disposition home or self-care (01) ==
PROVIDERS: PCP Nurse Practitioner Family; Visit Provider Internal Medicine Pulmonary Disease
DX: R91.1 Solitary pulmonary nodule (principal); J45.909 Unspecified asthma, uncomplicated; Z91.09 Other allergy status, other than to drugs and biological substances
CPT/HCPCS: 99214

== ENCOUNTER → 2023-06-21 13:41 | Outpatient (BNVA) | payer MEDICARE, SELFPAY | PROVIDERS: PCP Nurse Practitioner Family; Visit Provider Internal Medicine Pulmonary Disease | DX: J45.909 Unspecified asthma, uncomplicated (principal); R91.1 Solitary pulmonary nodule; Z91.09 Other allergy status, other than to drugs and biological substances | CPT/HCPCS: 99212 ==

== ENCOUNTER 2023-07-26 10:07 | Outpatient (REF) | payer MEDICARE, SELFPAY ==
[2023-07-26 12:09] LABS: Hematocrit 34.2 % (37.0-47.0); Hemoglobin 11.1 g/dl (12.0-16.0); Mean Corpuscular HGB Conc 32.5 g/dl (31.0-35.0); Mean Corpuscular Hemoglobin 29.8 pg (27.0-33.0); Mean Corpuscular Volume 91.7 fL (80.0-98.0); Mean Platelet Volume 10.9 fL (9.4-12.3); Platelet Count 190 X10*3/uL (160-400); Red Blood Count 3.73 X10*6/uL (4.20-5.50); Red Cell Distribution Width 14.2 % (11.0-16.0); White Blood Count 5.3 X10*3/uL (4.8-10.8)
[2023-07-26 12:47] LABS: Anion Gap 14 (12-20); B Type Natriuretic Peptide 99 pg/mL (<100); Blood Urea Nitrogen 25 mg/dL (9-16); Calcium 9.6 mg/dL (8.4-10.2); Carbon Dioxide 29 mmol/L (22-29); Chloride 104 mmol/L (96-108); Estimated Glomerular Filt Rate 39; Glucose Random 102 mg/dL (60-115); Potassium 4.1 mmol/L (3.3-5.1); Sodium 143 mmol/L (135-145)
== END 2023-07-26 10:08 | disposition home or self-care (01) ==
LOC: HO.LAB 10:07
PROVIDERS: PCP Nurse Practitioner Family; Visit Provider Internal Medicine Cardiovascular Disease
DX: R06.01 Orthopnea (principal); R07.9 Chest pain, unspecified; R09.89 Other specified symptoms and signs involving the circulatory and respiratory systems; Z79.899 Other long term (current) drug therapy; Z98.890 Other specified postprocedural states
CPT/HCPCS: 36415; 80048; 83880; 85027; 93005; 99202

== ENCOUNTER 2023-07-26 10:07 | Outpatient (AMB) | payer MEDICARE, SELFPAY ==
--- NOTE | 2023-07-26 10:24 | A.OFFVIS_ITS ---
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 Present Accompanied by: great granddaughter Allergies gluten Adverse Reaction (Intermediate, Uncoded 06/09/23 14:49) Diarrhea Medication List - Last Reconciled 07/26/23 by Adolfo Caban MD albuterol sulfate 90 mcg/actuation 2 puffs inhalation Q4H PRN 30 days amlodipine 5 mg PO DAILY bisoprolol fumarate 5 mg PO DAILY cholecalciferol (vitamin D3) 25 mcg PO DAILY 90 days diclofenac sodium 1% (Arthritis Pain (diclofenac)) 2 grams topical QID famotidine 20 mg PO DAILY fluticasone furoate-vilanterol 200-25 mcg/dose (Breo Ellipta) 1 inh inhalation DAILY gabapentin 600 mg PO DAILY isosorbide mononitrate ER 30 mg PO DAILY loratadine (Allergy Relief (loratadine)) 10 mg PO DAILY losartan 100 mg PO DAILY montelukast (Singulair) 10 mg PO DAILY rosuvastatin 20 mg PO DAILY sitagliptin phos-metformin 50-1,000 mg (Janumet) 1 tab PO BID spironolactone 25 mg PO DAILY HPI HPI Comments History of Present Illness Details Thank you for referring Charity in cardiology consultation today for chest pain. She is 83-year-old female who predominantly speaks Mongolian, accompanied by her great granddaughter who acts as foreign language interpreter. Did declined a certified foreign language interpreter. She is not a very good historian despite use of her great granddaughter. She says she has been having chest discomfort for few years. Says few years ago she ended up in the hospital in [place] with elevated blood pressure in systolic to 100 range associated with right-sided chest pressure. She then had a workup done at had a cardiac catheterization, unfortunately I do not have a copy of the results but since then she was treated for hypertension and also prescribed medications which seem like antianginal therapy including isosorbide, amlodipine and bisoprolol. She says since then she had moved to [place] and then has now moved to [place] to live with her granddaughter. She has run out of isosorbide for the last 3 days. She says she has been getting right-sided chest pressure. She has not very descriptive about the chest discomfort. However she said the chest discomfort could happen at rest not sure if this happens in association with elevated blood pressure or under stressful situations. She also gets chest pain sometimes when she is walking although this is also not very clear. Symptoms can last up to 2 hours unless she takes a sublingual nitroglycerin. These medicines were prescribed by a oil well perforator operator in [place]. Again I do not have the old records to confirm any of the findings. She has not had any recent testing. She notices that at home once every 2 weeks a blood pressure [place] [address] range usually under stressful situations. At other times a blood pressure seemed to be systolic 130. Her diastolic blood pressure are in the upper 50s. She also the last 3 months has had increased leg swelling below the knee and around the ankle and also has symptoms of shortness of breath nighttime for which she has to set up. She thought these symptoms were related to her asthma and when the symptoms do not resolve she does take inhaler therapy. [facility] Surgical History (Updated 01/31/23 @ 08:33 by JIM Ford) H/O cardiac catheterization Hx of cholecystectomy H/O total hysterectomy Family History Mother No problems noted. Father Diabetes Sister Breast cancer Sister Breast cancer Sister Liver cancer Social History Household Members: Family Housing: Other Alcohol intake: never Patient Tobacco Use Status: Never used Tobacco e-Cigarette/Vaping Use: Never Used Second Hand Smoke Exposure: No Current occupational status: disabled Cognitive needs: No Hearing needs: No Vision needs: Yes Review of Systems Const Denies chills, Denies daytime sleepiness, Denies fatigue, Denies fever(s), Denies frequent falls, Denies poor appetite, Denies snoring, Denies stops breathing during sleep, Denies weakness, Denies weight gain and Denies weight loss Eyes Denies loss of vision ENT Denies dizziness and Denies hearing loss Card Denies chest pain, Denies claudication, Denies leg edema, Denies lightheadedness, Denies palpitations, Denies dyspnea, Denies dyspnea on exertion and Denies orthopnea Resp Denies cough, Denies excessive phlegm production, Denies dyspnea, Denies dyspnea on exertion, Denies snoring and Denies wheezing GI Denies abdominal pain, Denies hematochezia, Denies change in bowel habits, Denies nausea and Denies vomiting Denies urinary frequency and Denies dysuria Musc Denies arthralgias, Denies muscle weakness, Denies numbness and Denies other (frequent falls) Skin/Breast Denies nail changes and Denies rash Neuro Denies Abnormal speech present, Denies dizziness, Denies frequent falls, Denies loss of vision, Denies memory loss, Denies numbness and Denies weakness Psych Denies depression and Denies memory loss Endo Denies fatigue and Denies palpitations Ángel/Lymph Reports easy bruising and Reports other (anemia) Aller/Immun Denies wheezing Physical Exam Vital Signs: Last Vital Signs Pulse 72 07/26/23 10:25 BP 130/82 07/26/23 10:25 BMI result Body Mass Index 29.5 Neuro Speech: No Abnormal speech present Office Procedures EKG Details: EKG shows normal sinus rhythm with normal EKG [id number], Complete Assessment & Plan Assessment & Plan (1) Chest pain: Code(s): R07.9 - Chest pain, unspecified Plan: Patient intermittent symptoms of chest discomfort relieved by nitroglycerin. The extent of workup in [place] is unclear and her symptoms do sound suggestive angina as it response to nitroglycerin but also could be related to elevated blood pressure. This is unclear. Given her lack of information and unreliable history I have decided to give her isosorbide 30 mg daily as start for therapy for possible underlying coronary artery disease. Will obtain old records from [place]. Meanwhile I have advised her to continue monitor blood pressure at home maintain a log. Advised to pursue myocardial perfusion imaging with vaso dilator in near future to assess for any significant myocardial ischemia that may require alternative/invasive treatment options. Echocardiogram to evaluate LV systolic and diastolic function to evaluate for hypertensive heart disease and pulmonary hypertension. (2) Labile blood pressure: Code(s): R09.89 - Other specified symptoms and signs involving the circulatory and respiratory systems Plan: Labile blood pressure but only very sporadic elevation in blood pressure related to stressful situations. Advised stress mitigation strategies. No change in therapy is recommended. Advised to monitor blood pressure at home and maintain a a written log. Low-salt diet was discussed. Continue current medical therapy and antihypertensive therapy. Will obtain renal duplex to assess for renal artery stenosis (3) Orthopnea: Code(s): R06.01 - Orthopnea Plan: Patient has symptoms concerning for heart failure with symptoms of orthopnea as well as has evidence of fluid overload with leg edema. Will obtain BMP and BNP today. May require diuretic therapy with Lasix. She has no clear history of heart failure from before. Echocardiogram as above. Further treatment based on the test results. Follow up in the clinic in 6 weeks time, sooner p.r.n.. Thank you for allowing me to partake in her care Orders: Orders Complete Blood Count no Diff Today R06.01 - Orthopnea CA echo transthoracic complete Today R06.01 - Orthopnea US renal doppler Today R09.89 - Other specified symptoms and signs involving the circulatory and respiratory systems B Type Natriuretic Peptide Today R06.01 - Orthopnea Basic Metabolic Panel Today R06.01 - Orthopnea CA lexiscan stress w nedra Today R07.9 - Chest pain, unspecified Medications: Refilled isosorbide mononitrate ER 30 mg PO DAILY 30 tabs 3RF Coding Level of Care Code New Pt Level 4 (06148) Diagnoses Chest pain R07.9 Labile blood pressure R09.89 Orthopnea R06.01 CPT Codes EKG - CPT: 76238-[id number], Complete ([id number])
[2023-07-26 10:25] VITALS: BP 130/82; PULSE 72; BMI 29.5
== END 2023-07-26 11:04 | disposition home or self-care (01) ==
PROVIDERS: PCP Nurse Practitioner Family; Visit Provider Internal Medicine Cardiovascular Disease
DX: R07.9 Chest pain, unspecified (principal); R09.89 Other specified symptoms and signs involving the circulatory and respiratory systems; R06.01 Orthopnea
CPT/HCPCS: 93010; 99204

== ENCOUNTER 2023-07-27 08:15 | Outpatient (AMB) | payer MEDICARE, SELFPAY ==
[2023-07-27 08:31] VITALS: BP 138/62; PULSE 72; BMI 29.5
--- NOTE | 2023-07-27 08:31 | MHC.PC.OV ---
Vital Signs 07/27/23 08:31 Height 5 ft 4 in Weight 172 lb BMI 29.5 BP 138/62 Blood Pressure Location Lt brachial Position Sitting Pulse 72 Pulse Source Pulse Oximeter Oxygen Delivery Method Room Air Intake Visit Reasons: pain in both leg and feet/ unable to walk Intake Note: Pt states bilateral leg pain and swelling [id number], no fall or injury Front Desk Attendant Required: No Allergies gluten Adverse Reaction (Intermediate, Uncoded 07/27/23 08:35) Diarrhea Medication List - Last Reconciled 07/27/23 by Brielle Severino MD albuterol sulfate 90 mcg/actuation 2 puffs inhalation Q4H PRN 30 days amlodipine 5 mg PO DAILY bisoprolol fumarate 5 mg PO DAILY cholecalciferol (vitamin D3) 25 mcg PO DAILY 90 days diclofenac sodium 1% (Arthritis Pain (diclofenac)) 2 grams topical QID famotidine 20 mg PO DAILY fluticasone furoate-vilanterol 200-25 mcg/dose (Breo Ellipta) 1 inh inhalation DAILY fluticasone propionate 50 mcg/actuation (Flonase Allergy Relief) 2 sprays intranasal DAILY gabapentin 600 mg PO DAILY isosorbide mononitrate ER 30 mg PO DAILY loratadine (Allergy Relief (loratadine)) 10 mg PO DAILY losartan 100 mg PO DAILY montelukast (Singulair) 10 mg PO DAILY rosuvastatin 20 mg PO DAILY sitagliptin phos-metformin 50-1,000 mg (Janumet) 1 tab PO BID spironolactone 25 mg PO DAILY Tobacco use date assessed: 07/27/23 Fall risk assessment: No Falls in past year Last assessed Fall Risk: 07/27/23 HPI pain in both leg and feet/ unable to walk HPI Details 83-year-old overweight female with a history asthma diabetes mellitus controlled hypertension last seen in January 2023. 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 Also complains of lower extremity edema. Workup advised. Refilled isosorbide mononitrate. Last month patient has also seen Pulmonary history of asthma on Breo and albuterol noted on CT scan demonstrated left lower lobe 8 mm nodule advised to repeat CT in 4 months. Patient was prescribed antibiotic at that time. Early June was in the hospital for foot pain. Left foot right knee pain x-rays do not reveal any fracture. [facility] Surgical History (Updated 01/31/23 @ 08:33 by JIM Ford) H/O cardiac catheterization Hx of cholecystectomy H/O total hysterectomy Family History Mother No problems noted. Father Diabetes Sister Breast cancer Sister Breast cancer Sister Liver cancer Social History Household Members: Family Housing: Other Alcohol intake: never Patient Tobacco Use Status: Never used Tobacco e-Cigarette/Vaping Use: Never Used Second Hand Smoke Exposure: No Current occupational status: disabled Cognitive needs: No Hearing needs: No Vision needs: Yes Questionnaire Thrive Questionnaire Date Thrive assessed: 01/31/23 AUDIT C Alcohol Use Questionnaire (AUDIT-C) 1. How often do you have a drink containing alcohol?: Never 3. How often do you have six or more drinks on one occasion?: Never Total Score: 0 BRADY-7 AMB Questionnaire BRADY-7 Date BRADY - 7 assessed: 01/31/23 Source: Developed by Drs. Kenneth Urban, Kelli Rowland, Mandeep Bangura and colleagues, with an educational sandeep from [employer]. Physical exam (Primary Care) Vital Signs: Last Vital Signs Pulse 72 07/27/23 08:31 BP 138/62 07/27/23 08:31 Oxygen Delivery Method Room Air 07/27/23 08:31 BMI result Body Mass Index 29.5 Tobacco/Smoking Status: Tobacco use Status Tobacco use date assessed 07/27/23 07/27/23 08:38 Patient Tobacco Use Status Never used Tobacco 07/27/23 08:38 e-Cigarette/Vaping Use Never Used 07/27/23 08:38 Thrive Assessment: Date of Thrive Assessment Date Thrive assessed 01/31/23 07/27/23 08:38 Const General: alert; No acute distress Eyes Conjunctivae: conjunctivae normal Resp Auscultation: clear to auscultation bilaterally Cardio Rate: regular rate Rhythm: regular rhythm GI Inspection: Yes normal to inspection Extrem General: Yes normal to inspection and No edema Assessment and Plan Assessment & Plan (1) Type 2 diabetes mellitus: Code(s): E11.9 - Type 2 diabetes mellitus without complications Plan: Decrease the amount of carbohydrate intake, pasta, bread, rice and potatoes are all sugar and that is aside from all the sweet stuff, remember that fruits are good but they are Sweet also. Hemoglobin A1c goal of less than 7.0 patient is on Janumet mg twice a day (2) Hypertension: Code(s): I10 - Essential (primary) hypertension Plan: Continue with blood pressure medication. Decrease salt intake and exercise patient takes losartan 100 mg once a day bisoprolol 5 mg once a day amlodipine 5 mg once a day and spironolactone 25 mg once a day. Advised to monitor blood pressure record and bring the list here. (3) Asthma: Code(s): J45.909 - Unspecified asthma, uncomplicated Plan: Continue with montelukast Breo and albuterol inhaler (4) Pulmonary nodule: Comment: Left lobe nodule 8 mm Code(s): R91.1 - Solitary pulmonary nodule Plan: Patient has met with Pulmonary and has advised CT scan repeat in 4 months to follow-up on the left lobe nodule 8 mm (5) Hypercholesterolemia: Code(s): E78.00 - Pure hypercholesterolemia, unspecified Plan: Avoid fried foods, chicken skin, eggs, butter margarine, pastries and meat. Be it pork or beef they have a lot of cholesterol LDL goal of less than 70 and triglyceride of less than 150. Advised to retest blood work (6) Chest pain: Code(s): R07.9 - Chest pain, unspecified Plan: Patient has met with Cardiology and workup pending stress test (7) Overweight (BMI 25.0-29.9): Code(s): E66.3 - Overweight Plan: Diet and exercise (8) Arthritis of right knee: Code(s): M17.11 - Unilateral primary osteoarthritis, right knee Plan: Discussed that this is degenerative and supportive management for pain relief. Keep active and lose the weight. Discussed about Voltaren gel [id number] (9) Nasal congestion: Code(s): R09.81 - Nasal congestion Plan: Flonase nasal spray sent. (10) Plantar fasciitis of left foot: Code(s): M72.2 - Plantar fascial fibromatosis Plan: Information given to the patient to do the exercises and podiatry referral done Orders: Orders Comprehensive Met. Panel Today E78.00 - Pure hypercholesterolemia, unspecified Lipid Panel Today E78.00 - Pure hypercholesterolemia, unspecified Referrals Orthopedics Referral M17.11 - Unilateral primary osteoarthritis, right knee Podiatry Referral M72.2 - Plantar fascial fibromatosis Ophthalmology Referral E11.9 - Type 2 diabetes mellitus without complications Medications: New fluticasone propionate 50 mcg/actuation (Flonase Allergy Relief) administer into each nostril 2 sprays intranasal DAILY 16 grams 0RF R09.81 - Nasal congestion Refilled sitagliptin phos-metformin 50-1,000 mg (Janumet) 1 tab PO BID 180 tabs 1RF E11.9 - Type 2 diabetes mellitus without complications losartan 100 mg PO DAILY 90 tabs 1RF E11.9 - Type 2 diabetes mellitus without complications Coding Level of Care Code Est Pt Level 4 (42288) Diagnoses Type 2 diabetes mellitus E11.9 Hypertension I10 Asthma J45.909 Pulmonary nodule R91.1 Hypercholesterolemia E78.00 Chest pain R07.9 Overweight (BMI 25.0-29.9) E66.3 Arthritis of right knee M17.11 Nasal congestion R09.81 Plantar fasciitis of left foot M72.2
== END 2023-07-27 09:59 | disposition home or self-care (01) ==
PROVIDERS: PCP Nurse Practitioner Family; Visit Provider Internal Medicine
DX: E11.9 Type 2 diabetes mellitus without complications (principal); I10 Essential (primary) hypertension; J45.909 Unspecified asthma, uncomplicated; R91.1 Solitary pulmonary nodule; E78.00 Pure hypercholesterolemia, unspecified; R07.9 Chest pain, unspecified; E66.3 Overweight; M17.11 Unilateral primary osteoarthritis, right knee; R09.81 Nasal congestion; M72.2 Plantar fascial fibromatosis
CPT/HCPCS: 99214

== ENCOUNTER 2023-08-09 08:52 | Outpatient (REF) | payer MEDICARE, SELFPAY ==
--- NOTE | ~2023-08-09 | US_ITS ---
EXAMINATION: ULTRASOUND RENAL WITH DOPPLER CLINICAL INFORMATION: Hypertension. COMPARISON: None. TECHNIQUE: Real-time grayscale, color Doppler, and duplex Doppler evaluation of the kidneys and renal vasculature was performed. FINDINGS: RENAL MEASUREMENTS: Right: 10.0 x 4.7 x 4.3 cm (Sag x AP x TV) Left: 10.1 x 4.6 x 4.3 cm (Sag x AP x TV) Mild cortical thinning bilaterally. No hydronephrosis. 3 mm nonobstructing calculus in the lower right kidney. Small simple cyst in the left kidney for which no imaging follow-up is recommended. DOPPLER INTERROGATION: AORTA: Mid aorta: 107 cm/sec RIGHT MAIN RENAL ARTERY: Proximal: 137 cm/sec Mid: 86 cm/sec Distal: 97 cm/sec LEFT MAIN RENAL ARTERY: Proximal: 163 cm/sec Mid: 132 cm/sec Distal: 97 cm/sec RENAL-AORTIC RATIO (RAR): Right: Not calculated due to mid aortic velocity outside of range 40-100 cm/s making RAR inaccurate. Left: Not calculated due to mid aortic velocity outside of range 40-100 cm/s making RAR inaccurate. SEGMENTAL RESISTIVE INDICES: Right: 0.65-0.74 Left: 0.73-0.74 RENAL VEINS: Right: Patent with normal waveform. Left: Patent with normal waveform. US/US renal BI IMPRESSION: No evidence of hemodynamically significant renal artery stenosis. Mild bilateral renal cortical thinning. 3 mm nonobstructing calculus lower right kidney. No hydronephrosis.
--- NOTE | ~2023-08-09 | US_ITS ---
EXAMINATION: ULTRASOUND RENAL WITH DOPPLER CLINICAL INFORMATION: Hypertension. COMPARISON: None. TECHNIQUE: Real-time grayscale, color Doppler, and duplex Doppler evaluation of the kidneys and renal vasculature was performed. FINDINGS: RENAL MEASUREMENTS: Right: 10.0 x 4.7 x 4.3 cm (Sag x AP x TV) Left: 10.1 x 4.6 x 4.3 cm (Sag x AP x TV) Mild cortical thinning bilaterally. No hydronephrosis. 3 mm nonobstructing calculus in the lower right kidney. Small simple cyst in the left kidney for which no imaging follow-up is recommended. DOPPLER INTERROGATION: AORTA: Mid aorta: 107 cm/sec RIGHT MAIN RENAL ARTERY: Proximal: 137 cm/sec Mid: 86 cm/sec Distal: 97 cm/sec LEFT MAIN RENAL ARTERY: Proximal: 163 cm/sec Mid: 132 cm/sec Distal: 97 cm/sec RENAL-AORTIC RATIO (RAR): Right: Not calculated due to mid aortic velocity outside of range 40-100 cm/s making RAR inaccurate. Left: Not calculated due to mid aortic velocity outside of range 40-100 cm/s making RAR inaccurate. SEGMENTAL RESISTIVE INDICES: Right: 0.65-0.74 Left: 0.73-0.74 RENAL VEINS: Right: Patent with normal waveform. Left: Patent with normal waveform. US/US renal doppler IMPRESSION: No evidence of hemodynamically significant renal artery stenosis. Mild bilateral renal cortical thinning. 3 mm nonobstructing calculus lower right kidney. No hydronephrosis.
== END 2023-08-09 08:53 | disposition home or self-care (01) ==
LOC: HO.US 08:52
PROVIDERS: PCP Nurse Practitioner Family; Visit Provider Internal Medicine Cardiovascular Disease
DX: R09.89 Other specified symptoms and signs involving the circulatory and respiratory systems (principal)
CPT/HCPCS: 76775; 93975

== ENCOUNTER 2023-08-30 16:30 | Outpatient (AMB) | payer MEDICARE, MEDICAID, SELFPAY ==
[2023-08-30 16:42] VITALS: BP 130/70; BMI 29.2
--- NOTE | 2023-08-30 16:42 | A.OFFPC_ITS ---
Vital Signs 08/30/23 16:42 Height 5 ft 4 in Weight 170 lb BMI 29.2 BP 130/70 Blood Pressure Location Lt brachial Position Sitting Intake Visit Reasons: Trans. from AO-DM/BP F/U Intake Note: Transfer of care, follow up DM, BP Plastic Cutter Required: No Accompanied by: niece Allergies gluten Adverse Reaction (Intermediate, Uncoded 08/30/23 17:03) Diarrhea Medication List - Last Reconciled 08/30/23 by Janna Shipley MD albuterol sulfate 90 mcg/actuation 2 puffs inhalation Q4H PRN 30 days amlodipine 5 mg PO DAILY bisoprolol fumarate 5 mg PO DAILY cholecalciferol (vitamin D3) 25 mcg PO DAILY 90 days diclofenac sodium 1% (Arthritis Pain (diclofenac)) 2 grams topical QID famotidine 20 mg PO DAILY fluticasone furoate-vilanterol 200-25 mcg/dose (Breo Ellipta) 1 inh inhalation DAILY fluticasone propionate 50 mcg/actuation (Flonase Allergy Relief) 2 sprays intranasal DAILY gabapentin 600 mg PO DAILY isosorbide mononitrate ER 30 mg PO DAILY loratadine (Allergy Relief (loratadine)) 10 mg PO DAILY losartan 100 mg PO DAILY montelukast (Singulair) 10 mg PO DAILY rosuvastatin 20 mg PO DAILY sitagliptin phos-metformin 50-1,000 mg (Janumet) 1 tab PO BID spironolactone 25 mg PO DAILY Tobacco use date assessed: 07/27/23 Fall risk assessment: No Falls in past year Last assessed Fall Risk: 08/30/23 Dental Screening Dental Screen Date: 08/30/23 Did you have a dental visit in the last 12 months?: No Did you have a dental problem in the last 6 months where you did not have access to dental care?: No Was dental information given to patient?: Yes HPI HPI Comments History of Present Illness Details This is an 83-year-old female with diabetes mellitus type 2, hypertension, hypercholesterolemia asthma that comes today accompanied by daughter for follow-up on her conditions. A1c within goal. Blood pressure stable. I will order a lipid panel and her LDL goal should be less than 70. On long-acting inhaler and is using rescue inhaler about once a month lately. No chest pain or shortness of breath. Complains of bilateral knee pain causing difficulty walking. Has full active range of motion. [facility] Surgical History H/O cardiac catheterization Hx of cholecystectomy H/O total hysterectomy Family History Mother No problems noted. Father Diabetes Sister Breast cancer Sister Breast cancer Sister Liver cancer Social History Household Members: Family Housing: Other Alcohol intake: never Patient Tobacco Use Status: Never used Tobacco e-Cigarette/Vaping Use: Never Used Second Hand Smoke Exposure: No service: No Current occupational status: disabled Cognitive needs: No Hearing needs: No Vision needs: Yes Questionnaire PHQ-9 Over the last 2 weeks, how often have you been bothered by any of the following problems? 1. Little interest or pleasure in doing things: not at all 2. Feeling down, depressed, or hopeless: more than half the days 3. Trouble falling or staying asleep, or sleeping too much: nearly every day 4. Feeling tired or having little energy: several days 5. Poor appetite or overeating: not at all 6. Feeling bad about yourself - or that you are a failure or have let yourself or your family down: not at all 7. Trouble concentrating on things, such as reading the newspaper or watching television: not at all 8. Moving or speaking so slowly that other people could have noticed. Or the opposite - being so fidgety or restless that you have been moving around a lot more than usual: not at all 9. Thoughts that you would be better off or of hurting yourself in some way: not at all Total score: 6 Depression Screening Interpretation: Positive Depression Screening Follow-up: Existing condition Depression Screening Done: Yes 95834 - PHQ-9 Billing: Yes Source: Developed by Drs. Kenneth Urban, Kelli Rowland, Mandeep Bangura and colleagues, with an educational sandeep from [employer]. Thrive Questionnaire Date Thrive assessed: 08/30/23 I am a: Patient What is your living situation today?: I have a steady place to live Within the past 12 months, did the food you bought not last and you didn't have the money to get more?: Never true Within the past 12 months, did you worry whether your food would run out before you got money to buy more?: Never true Do you have trouble paying for medicines?: No Do you have trouble getting transportation to medical appointments?: Yes Do you have trouble paying your heating and electricity bill?: No Do you have trouble taking care of your child, family member or friend?: No Do you have trouble with day-to-day activities such as bathing, preparing meals, shopping, managing finances, etc.?: Yes Are you currently unemployed and looking for a job?: No Are you interested in more education?: No Please select the resources that you would like help with: None Currently or been in a relationship where the following occur: no concerns reported THRIVE Score: 1 AUDIT C Alcohol Use Questionnaire (AUDIT-C) 1. How often do you have a drink containing alcohol?: Never Total Score: 0 BRADY-7 AMB Questionnaire BRADY-7 Date BRADY - 7 assessed: 08/30/23 Feeling nervous, anxious, or on edge: 1 = Several days Not being able to stop or control worryin = Not at all Worrying too much about different things: 1 = Several days Trouble relaxin = Not at all Being so restless that it is hard to sit still: 0 = Not at all Becoming easily annoyed or irritable: 0 = Not at all Feeling afraid as if something awful might happen: 0 = Not at all Total BRADY-7 score (0-4 normal; 5-9 mild; 10-14 moderate; 15-21 severe): 2 Source: Developed by Drs. Kenneth Urban, Kelli Rowland, Mandeep Bangura and colleagues, with an educational sandeep from [employer]. BRADY-7 Assessment Billing BRADY-7 Assessment Tool: BRADY-7 Assessment 59723 Review of Systems Const All systems reviewed & are unremarkable except as noted in HPI and below Eyes Reports no additional complaints, Denies change in vision and Denies other visual disturbances Card Denies chest pain at rest, Denies chest pain with activity, Denies edema, Denies irregular heart rhythm, Denies claudication, Denies dyspnea, Denies dyspnea on exertion, Denies orthopnea, Denies paroxysmal nocturnal dyspnea and Denies slow heart rate Resp Denies cough, Denies dyspnea and Denies dyspnea on exertion GI Denies abdominal pain, Denies change in bowel habits, Denies excessive flatus, Denies nausea and Denies vomiting Denies urinary incontinence, Denies urinary hesitancy and Denies urinary urgency Physical exam (Primary Care) Vital Signs: Last Vital Signs BP 130/70 08/30/23 16:42 BMI result Body Mass Index 29.2 Tobacco/Smoking Status: Tobacco use Status Tobacco use date assessed 07/27/23 08/30/23 16:49 Patient Tobacco Use Status Never used Tobacco 08/30/23 16:49 e-Cigarette/Vaping Use Never Used 08/30/23 16:49 PHQ-9: PHQ-9 Score PHQ-9: Total score 6 08/30/23 21:09 Depression Screening Interpretation: Positive Depression Screening Follow-up: Existing condition Thrive Assessment: Date of Thrive Assessment Date Thrive assessed 08/30/23 08/30/23 16:50 Currently or been in a relationship where the following occur: no concerns reported Resp Effort & Inspection: normal respiratory effort Auscultation: clear to auscultation bilaterally Cardio Jugular venous distension: no JVD Rate: regular rate Rhythm: regular rhythm Heart sounds: S1 normal heart sound present and S2 normal heart sound present Extrem General: Yes full ROM Results AMB Hemoglobin A1c AMB Hemoglobin A1c 6.2 % Last Edit by JULIA Barbosa on 08/30/23 16:4 9 Results Reviewed Results Reviewed: Laboratory Last Values Hgb A1c (Clinic) 6.2 % (4.0-6.0) H 08/30/23 16:38 Assessment and Plan Assessment & Plan (1) Type 2 diabetes mellitus: Code(s): E11.9 - Type 2 diabetes mellitus without complications Plan: Continue Janumet. A1c goal is equal or less than 7%. (2) Hypertension: Code(s): I10 - Essential (primary) hypertension Plan: Continue losartan. Blood pressure goal is equal or less than 130/80. (3) Asthma: Code(s): J45.909 - Unspecified asthma, uncomplicated Plan: Continue Breo. Use rescue inhaler as needed. (4) Hypercholesterolemia: Code(s): E78.00 - Pure hypercholesterolemia, unspecified Plan: Continue statins. Repeat lipid panel. LDL goal is less than 70. Orders: Orders XR knee LT 2V Today M25.562 - Pain in left knee XR knee RT 2V Today M25.561 - Pain in right knee Lipid Panel 4 Months E78.5 - Hyperlipidemia, unspecified Microalbumin, Random (w Creat) 4 Months E11.9 - Type 2 diabetes mellitus without complications MM screening mammo BI Today Z12.31 - Encounter for screening mammogram for malignant neoplasm of breast Vitamin D 25-OH Total 4 Months E55.9 - Vitamin D deficiency, unspecified Complete Blood Count Auto Diff 4 Months D64.9 - Anemia, unspecified IRON PROFILE 4 Months D64.9 - Anemia, unspecified Comprehensive [place]. Panel Fast 4 Months E11.9 - Type 2 diabetes mellitus without complications AMB Hemoglobin A1c Today E11.9 - Type 2 diabetes mellitus without complications XR DEXA axial skeleton Today N95.9 - Unspecified menopausal and perimenopausal disorder Vitamin B12 and Folate 4 Months E53.8 - Deficiency of other specified B group vitamins Referrals Orthopedics Referral M25.561 - Pain in right knee, M25.562 - Pain in left knee Ophthalmology Referral E11.9 - Type 2 diabetes mellitus without complications Medications: Changed From rosuvastatin 20 mg PO DAILY To rosuvastatin 20 mg PO DAILY 90 tabs 1RF 90 days From gabapentin 600 mg PO DAILY 30 tabs 0RF To gabapentin 600 mg PO DAILY 90 tabs 1RF 90 days Refilled diclofenac sodium 1% (Arthritis Pain (diclofenac)) apply to single elbow, wrist or hand; for hand includes palm/fingers/back of hand 2 grams topical QID 100 grams 0RF M17.11 - Unilateral primary osteoar thritis, right knee Coding Level of Care Code Est Pt Level 4 (13949) Diagnoses Type 2 diabetes mellitus E11.9 Hypertension I10 Asthma J45.909 Hypercholesterolemia E78.00 Additional Codes BRADY-7 Assessment Billing - BRADY-7 Assessment Tool: BRADY-7 Assessment [id number] ([id number]) Time Spent (min) 25
== END 2023-08-30 17:18 | disposition home or self-care (01) ==
PROVIDERS: PCP Nurse Practitioner Family; Visit Provider Internal Medicine
DX: E11.9 Type 2 diabetes mellitus without complications (principal)
CPT/HCPCS: 83036; 99214

== ENCOUNTER 2023-10-09 08:43 | Outpatient (REF) | payer MEDICARE, SELFPAY ==
--- NOTE | ~2023-10-09 | XR_ITS ---
Radiograph bilateral knees CLINICAL HISTORY: Pain. COMPARISON: Radiograph right knee to 01/19/2024. TECHNIQUE: 3 views of each knee and 1 standing AP view of both knees. FINDINGS: No acute fracture or subluxation. Moderate tricompartmental degenerative arthritis in both knees with joint space narrowing and marginal osteophytes more prominent in the medial and patellofemoral compartments of both knees. Prominent patellar spurring bilaterally. No osseous erosions. No significant joint effusion. Scattered vascular calcifications. XR/XR knee RT 3V IMPRESSION: 1. No acute fracture or subluxation. 2. Moderate tricompartmental degenerative arthritis in both knees.
--- NOTE | ~2023-10-09 | XR_ITS ---
Radiograph bilateral knees CLINICAL HISTORY: Pain. COMPARISON: Radiograph right knee to 01/19/2024. TECHNIQUE: 3 views of each knee and 1 standing AP view of both knees. FINDINGS: No acute fracture or subluxation. Moderate tricompartmental degenerative arthritis in both knees with joint space narrowing and marginal osteophytes more prominent in the medial and patellofemoral compartments of both knees. Prominent patellar spurring bilaterally. No osseous erosions. No significant joint effusion. Scattered vascular calcifications. XR/XR knee LT 3V IMPRESSION: 1. No acute fracture or subluxation. 2. Moderate tricompartmental degenerative arthritis in both knees.
== END 2023-10-09 08:44 | disposition home or self-care (01) ==
LOC: HO.HOSX 08:43
PROVIDERS: Visit Provider Orthopaedic Surgery
DX: M17.0 Bilateral primary osteoarthritis of knee (principal); E11.9 Type 2 diabetes mellitus without complications
CPT/HCPCS: 20610; 73562; 99202; J0665; J1100

== ENCOUNTER 2023-10-09 09:58 | Outpatient (AMB) | payer MEDICARE, SELFPAY ==
--- NOTE | 2023-10-09 10:06 | A.OFFVIS_ITS ---
Vital Signs 10/09/23 10:08 Height 5 ft 4 in Weight 170 lb BMI 29.2 Intake Visit Reasons: New Pt - Bilateral Knee Pain Intake Note: Charity is an 83 year old female who presents today as a new patient with complaints of bilateral knee pain. She was referred by her PCP who recommended weight loss and OTC Voltaren. Patient reports pain and swelling with prolonged ambulation a nd going up and down stairs. Has tried and failed ibuprofen and Tylenol. Found relief with PT, injections in both knees were helpful for about a year. Hx of DM. Left foot pain with ambulation has poor circulation. Accompanied by: Grand Child Allergies gluten Adverse Reaction (Intermediate, Uncoded 08/30/23 17:03) Diarrhea HPI HPI New Pt - Bilateral Knee Pain: Details: Charity is an 83 year old female who presents today as a new patient with complaints of bilateral knee pain. She was referred by her PCP who recommended weight loss and OTC Voltaren. Patient reports pain and swelling with prolonged ambulation and going up and down stairs. Has tried and failed ibuprofen and Tylenol. Found relief with PT, injections in both knees were helpful for about a year. Hx of DM. PFSH Surgical History H/O cardiac catheterization Hx of cholecystectomy H/O total hysterectomy Family History Mother No problems noted. Father Diabetes Sister Breast cancer Sister Breast cancer Sister Liver cancer Social History Household Members: Family Housing: Other Alcohol intake: never Patient Tobacco Use Status: Never used Tobacco e-Cigarette/Vaping Use: Never Used Second Hand Smoke Exposure: No service: No Current occupational status: disabled Cognitive needs: No Hearing needs: No Vision needs: Yes Physical Exam Vital Signs: BMI result Body Mass Index 29.2 Extrem Other: varus alignement and ttp medial joint line bilaterally ( right > left) full rom and no effusion Results Reviewed Results Reviewed: I personally reviewed relevant radiographs. Moderate to sever bilateral knee OA Assessment & Plan Assessment & Plan (1) Bilateral primary osteoarthritis of knee: Code(s): M17.0 - Bilateral primary osteoarthritis of knee Category: Medical Plan: Right knee OA with pain that has benefitted from injections in the past. I rec ommend repeat injection in the right knee. She agrees. (2) Type 2 diabetes mellitus: Code(s): E11.9 - Type 2 diabetes mellitus without complications Category: Medical Plan: I informed Charity of the hyperglycemic effects of steroids. Orders: Orders XR knee RT 3V Today M25.561 - Pain in right knee XR knee LT 3V Today M25.562 - Pain in left knee Coding Level of Care Code New Pt Level 4 (99140) Diagnoses Bilateral primary osteoarthritis of knee M17.0 Type 2 diabetes mellitus E11.9
[2023-10-09 10:08] VITALS: BMI 29.2
== END 2023-10-09 10:43 | disposition home or self-care (01) ==
PROVIDERS: PCP Internal Medicine; Visit Provider Orthopaedic Surgery
DX: M17.0 Bilateral primary osteoarthritis of knee (principal); E11.9 Type 2 diabetes mellitus without complications
CPT/HCPCS: 20610; 99203

== ENCOUNTER 2023-12-28 13:57 | Outpatient (AMB) | payer MEDICARE, SELFPAY ==
[2023-12-28 14:01] VITALS: BP 118/67; PULSE 73; O2SAT 97; BMI 30.2
--- NOTE | 2023-12-28 14:01 | A.OFFVIS_ITS ---
Vital Signs 12/28/23 14:01 Height 5 ft 4 in Weight 176 lb BMI 30.2 BP 118/67 Blood Pressure Location Rt brachial Position Sitting Pulse 73 Pulse Source Doppler Pulse Oximetry (%) 97 Oxygen Delivery Method Room Air Intake Visit Reasons: Asthma Hardwood Floor Refinisher Required: Yes Hardwood Floor Refinisher Name: Natalie Jacob Janna Allergies gluten Adverse Reaction (Intermediate, Uncoded 08/30/23 17:03) Diarrhea HPI HPI Asthma: Details: 83-year-old lady, lifetime nonsmoker, with underlying history of asthma and pulmonary nodule previously evaluated with PET referred for pulmonary evaluation. Patient states that she has had asthma for approximately 30 years. She has been using Breo and albuterol MDI with reasonable control of her symptoms. Patient states that she has had remote PET scan to evaluate lung nodule, but she has not show about results. She does complain of environmental allergies. She does have a dog as a pet. 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 After the last office visit patient had had CT chest that demonstrated left lower lobe 8 mm nodule. She continues on Breo with good control of her symptoms. Today patient complains of acute exacerbation ongoing for last months symptomatic with cough productive of yellowish sputum and wheezing. [facility] Surgical History H/O cardiac catheterization Hx of cholecystectomy H/O total hysterectomy Family History Mother No problems noted. Father Diabetes Sister Breast cancer Sister Breast cancer Sister Liver cancer Social History Household Members: Family Housing: Other Alcohol intake: never Patient Tobacco Use Status: Never used Tobacco e-Cigarette/Vaping Use: Never Used Second Hand Smoke Exposure: No service: No Current occupational status: disabled Cognitive needs: No Hearing needs: No Vision needs: Yes Review of Systems Const Denies daytime sleepiness, Denies excessive sweating, Denies fatigue, Denies fever(s), Denies lethargy, Denies malaise, Denies night sweats, Denies snoring and Denies weight loss Eyes Denies blurry vision and Denies itchy eyes ENT Denies nasal congestion, Denies post nasal drip, Denies sinus pain, Denies sinus pressure and Denies other ( Thrush) Card Denies chest pain, Denies pedal edema, Denies dyspnea, Denies orthopnea and Denies paroxysmal nocturnal dyspnea Resp Reports cough, Denies hemoptysis, Reports excessive phlegm production, Denies dyspnea, Denies snoring and Reports wheezing GI Denies abdominal pain and Denies heartburn Musc Denies myalgias, Denies arthralgias and Denies joint swelling Skin/Breast Denies rash Neuro Denies memory loss and Denies seizure-like activity Psych Denies abnormal sleep pattern, Denies anxiety and Denies memory loss Endo Denies excessive sweating, Denies fatigue and Denies heat intolerance Ángel/Lymph Denies easy bruising Aller/Immun Denies itchy eyes, Denies seasonal rhinorrhea and Reports wheezing Physical Exam Vital Signs: Last Vital Signs Pulse 73 12/28/23 14:01 BP 118/67 12/28/23 14:01 Pulse Ox 97 12/28/23 14:01 Oxygen Delivery Method Room Air 12/28/23 14:01 BMI result Body Mass Index 30.2 Const General: no acute distress and alert Nutritional Appearance: obese Orientation/consciousness: Other orientation findings ( oriented) HEENT Head: Yes atraumatic Eyes General: appearance normal, both eyes and all related structures Sclerae: sclerae normal EOM: EOMs intact bilaterally Neck Neck: Yes supple Lymphatic: no lymphadenopathy noted Resp Effort & Inspection: normal respiratory effort and no use of accessory muscles Auscultation: clear to auscultation bilaterally Cardio Rate: regular rate Rhythm: regular rhythm Heart sounds: no gallops, no murmurs and no rubs Skin General skin exam: other ( warm) Extrem General: No clubbing, No cyanosis and No edema Assessment & Plan Assessment & Plan (1) Pulmonary nodule: Comment: Left lobe nodule 8 mm Code(s): R91.1 - Solitary pulmonary nodule Category: Medical Plan: Follow-up CT chest is pending. (2) Asthma: Code(s): J45.909 - Unspecified asthma, uncomplicated Category: Medical Plan: Baseline control with Breo, albuterol MDI. Now with an acute exacerbation, will treat with a course of azithromycin and prednisone. Orders: Orders CT chest wo IV con Today R91.1 - Solitary pulmonary nodule Medications: New azithromycin For 250 mg dose pack: take 500 mg today (day 1), then 250 mg for 4 days (days 2-5) PO 6 tabs 0RF prednisone 40 mg (2 x 20 mg) PO DAILY 10 tabs 0RF Coding Level of Care Code Est Pt Level 4 (17888) Diagnoses Pulmonary nodule R91.1 Asthma J45.909
== END 2023-12-28 14:25 | disposition home or self-care (01) ==
PROVIDERS: PCP Nurse Practitioner Family; Visit Provider Internal Medicine Pulmonary Disease
DX: R91.1 Solitary pulmonary nodule (principal); J45.909 Unspecified asthma, uncomplicated
CPT/HCPCS: 99214

== ENCOUNTER → 2023-12-28 13:57 | Outpatient (BNVA) | payer MEDICARE, SELFPAY | PROVIDERS: PCP Nurse Practitioner Family; Visit Provider Internal Medicine Pulmonary Disease | DX: J45.909 Unspecified asthma, uncomplicated (principal); R91.1 Solitary pulmonary nodule | CPT/HCPCS: 99212 ==

== ENCOUNTER 2024-01-15 09:20 | Outpatient (REF) | payer MEDICARE, SELFPAY ==
[2024-01-15 09:36] LABS: MANUAL DIFF FLAG NO
[2024-01-15 11:08] LABS: Basophils Percent Auto 0.2 % (0-2); Eosinophils Absolute Auto 0.2 X10*3/uL (0.0-0.4); Eosinophils Percent Auto 2.4 % (0-4); Hematocrit 35.2 % (37.0-47.0); Hemoglobin 11.3 g/dl (12.0-16.0); Imm Gran Abs Auto 0.03 X10*3/uL (0.00-0.03); Imm Gran Pct Auto 0.4 % (0.0-0.4); Lymphocytes Absolute Auto 1.7 X10*3/uL (1.2-4.9); Lymphocytes Percent Auto 20.9 % (20-40); Mean Corpuscular HGB Conc 32.1 g/dl (31.0-35.0); Mean Corpuscular Hemoglobin 30.4 pg (27.0-33.0); Mean Corpuscular Volume 94.6 fL (80.0-98.0); Mean Platelet Volume 10.6 fL (9.4-12.3); Monocytes Absolute Auto 0.8 X10*3/uL (0.1-1.2); Monocytes Percent Auto 10.3 % (2-11); Neutrophils Absolute Auto 5.3 x10*3/uL (2.0-8.3); Neutrophils Percent Auto 65.8 % (45-73); Platelet Count 209 X10*3/uL (160-400); Red Blood Count 3.72 X10*6/uL (4.20-5.50); Red Cell Distribution Width 14.4 % (11.0-16.0)
[2024-01-15 11:51] LABS: Creatinine Urine 59.57 mg/dL; Microalbum/Creatinine Ratio Ur 65.4 ug/mg cr (<30)
[2024-01-15 11:52] LABS: Alanine Aminotransferase 21 U/L (0-31); Albumin Level 3.9 g/dL (3.5-5.0); Alkaline Phosphatase 68 U/L (39-117); Anion Gap 12 (12-20); Aspartate Amino Transferase 15 U/L (5-31); Bilirubin Total 0.6 mg/dL (0.0-1.0); Blood Urea Nitrogen 30 mg/dL (9-16); Calcium 9.8 mg/dL (8.4-10.2); Carbon Dioxide 27 mmol/L (22-29); Chloride 105 mmol/L (96-108); Cholesterol 168 mg/dL (<200); Estimated Glomerular Filt Rate 39; Glucose Fasting 100 mg/dL (60-99); HDL Cholesterol 63 mg/dL (>40); Iron 79 mcg/dL (30-160); LDL Cholesterol Calculated 87 mg/dL (<100); Percent Iron Saturation 27 % (15-50); Sodium 139 mmol/L (135-145); Total Iron Binding Capacity 290 mcg/dL (228-428); Total Protein 7.1 g/dL (6.5-8.0); Triglycerides 94 mg/dL (<150); Unsaturated Iron Binding 211 ug/dL; Vitamin D 25-OH Total 22.2 ng/mL (>30)
[2024-01-15 12:09] LABS: Folate 9.7 ng/mL (> or = 4.0); Vitamin B12 192 pg/mL (200-900)
== END 2024-01-15 09:21 | disposition home or self-care (01) ==
LOC: HO.LAB 09:20
PROVIDERS: PCP Internal Medicine; Visit Provider Internal Medicine
DX: E11.9 Type 2 diabetes mellitus without complications (principal); E55.9 Vitamin D deficiency, unspecified; E53.8 Deficiency of other specified B group vitamins; D64.9 Anemia, unspecified; E78.5 Hyperlipidemia, unspecified
CPT/HCPCS: 36415; 80053; 80061; 82043; 82306; 82570; 82607; 82746; 83036; 83540; 85025

== ENCOUNTER 2024-01-15 14:48 | Outpatient (AMB) | payer MEDICARE, SELFPAY ==
--- NOTE | 2024-01-15 14:49 | MHC.PC.OV ---
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 Required: No Accompanied by: Niece Allergies gluten Adverse Reaction (Intermediate, Uncoded 01/15/24 14:59) Diarrhea Medication List - Last Reconciled 01/15/24 by Janna Shipley MD albuterol sulfate 90 mcg/actuation 2 puffs inhalation Q4H PRN 30 days amlodipine 5 mg PO DAILY bisoprolol fumarate 5 mg PO DAILY cholecalciferol (vitamin D3) 25 mcg PO DAILY 90 days diclofenac sodium 1% (Arthritis Pain (diclofenac)) 2 grams topical QID famotidine 20 mg PO DAILY fluticasone furoate-vilanterol 200-25 mcg/dose (Breo Ellipta) 1 inh inhalation DAILY fluticasone propionate 50 mcg/actuation (Flonase Allergy Relief) 2 sprays intranasal DAILY gabapentin 600 mg PO DAILY 90 days isosorbide mononitrate ER 30 mg PO DAILY loratadine (Allergy Relief (loratadine)) 10 mg PO DAILY losartan 100 mg PO DAILY montelukast (Singulair) 10 mg PO DAILY rosuvastatin 20 mg PO DAILY 90 days sitagliptin phos-metformin 50-1,000 mg (Janumet) 1 tab PO BID spironolactone 25 mg PO DAILY Tobacco use date assessed: 07/27/23 Fall risk assessment: No Falls in past year Last assessed Fall Risk: 01/15/24 Dental Screening Dental Screen Date: 08/30/23 HPI HPI Comments History of Present Illness Details This is an 83-year-old female with diabetes mellitus type 2 that comes for her physical exam accompanied by granddaughter Neelam Perry. A1c within goal. Diabetic eye exam was over a year ago. Labs were discussed. She has low vitamin B12 that will be supplemented and antibodies will be order to rule out pernicious anemia. Mammogram done over a year ago. Will order DEXA scan also. No acute complaints. [facility] Surgical History H/O cardiac catheterization Hx of cholecystectomy H/O total hysterectomy Family History Mother No problems noted. Father Diabetes Sister Breast cancer Sister Breast cancer Sister Liver cancer Social History Household Members: Family Housing: Other Alcohol intake: never Patient Tobacco Use Status: Never used Tobacco e-Cigarette/Vaping Use: Never Used Second Hand Smoke Exposure: No service: No Current occupational status: disabled Cognitive needs: No Hearing needs: No Vision needs: Yes Questionnaire PHQ-9 Over the last 2 weeks, how often have you been bothered by any of the following problems? 1. Little interest or pleasure in doing things: not at all 2. Feeling down, depressed, or hopeless: not at all 3. Trouble falling or staying asleep, or sleeping too much: not at all 4. Feeling tired or having little energy: not at all 5. Poor appetite or overeating: not at all 6. Feeling bad about yourself - or that you are a failure or have let yourself or your family down: not at all 7. Trouble concentrating on things, such as reading the newspaper or watching television: several days 8. Moving or speaking so slowly that other people could have noticed. Or the opposite - being so fidgety or restless that you have been moving around a lot more than usual: several days 9. Thoughts that you would be better off or of hurting yourself in some way: not at all Total score: 2 Depression Screening Interpretation: Negative Depression Screening Done: Yes 22030 - PHQ-9 Billing: Yes Source: Developed by Drs. Kenneth Urban, Kelli Rowland, Mandeep Bangura and colleagues, with an educational sandeep from [employer]. Thrive Questionnaire Date Thrive assessed: 01/15/24 I am a: Patient What is your living situation today?: I have a steady place to live Within the past 12 months, did the food you bought not last and you didn't have the money to get more?: I choose not to answer this question Within the past 12 months, did you worry whether your food would run out before you got money to buy more?: I choose not to answer this question Do you have trouble paying for medicines?: I choose not to answer this question Do you have trouble getting transportation to medical appointments?: I choose not to answer this question Do you have trouble paying your heating and electricity bill?: I choose not to answer this question Do you have trouble taking care of your child, family member or friend?: I choose not to answer this question Do you have trouble with day-to-day activities such as bathing, preparing meals, shopping, managing finances, etc.?: I choose not to answer this question Are you currently unemployed and looking for a job?: I choose not to answer this question Are you interested in more education?: I choose not to answer this question Please select the resources that you would like help with: None Currently or been in a relationship where the following occur: No concerns reported THRIVE Score: 0 AUDIT C Alcohol Use Questionnaire (AUDIT-C) 1. How often do you have a drink containing alcohol?: Never Total Score: 0 Score Reviewed/Action Taken: No BRADY-7 AMB Questionnaire BRADY-7 Date BRADY - 7 assessed: 01/15/24 Feeling nervous, anxious, or on edge: 0 = Not at all Not being able to stop or control worryin = Not at all Worrying too much about different things: 0 = Not at all Trouble relaxin = Not at all Being so restless that it is hard to sit still: 0 = Not at all Becoming easily annoyed or irritable: 0 = Not at all Feeling afraid as if something awful might happen: 0 = Not at all Total BRADY-7 score (0-4 normal; 5-9 mild; 10-14 moderate; 15-21 severe): 0 Source: Developed by Drs. Kenneth Urban, Kelli Rowland, Mandeep Bangura and colleagues, with an educational sandeep from [employer]. BRADY-7 Assessment Billing BRADY-7 Assessment Tool: BRADY-7 Assessment 78952 Review of Systems Const All systems reviewed & are unremarkable except as noted in HPI and below Card Denies chest pain at rest, Denies chest pain with activity, Denies edema, Denies irregular heart rhythm, Denies claudication, Denies dyspnea, Denies dyspnea on exertion, Denies orthopnea, Denies paroxysmal nocturnal dyspnea and Denies slow heart rate Resp Denies cough, Denies dyspnea and Denies dyspnea on exertion GI Denies abdominal pain, Denies change in bowel habits, Denies excessive flatus, Denies nausea and Denies vomiting Neuro Denies lack of coordination Physical exam (Primary Care) Vital Signs: Last Vital Signs BP 120/60 01/15/24 14:52 BMI result Body Mass Index 29.7 Tobacco/Smoking Status: Tobacco use Status Tobacco use date assessed 07/27/23 01/15/24 14:51 Patient Tobacco Use Status Never used Tobacco 01/15/24 14:51 e-Cigarette/Vaping Use Never Used 01/15/24 14:51 PHQ-9: PHQ-9 Score PHQ-9: Total score 2 01/15/24 15:01 Depression Screening Interpretation: Negative Thrive Assessment: Date of Thrive Assessment Date Thrive assessed 01/15/24 01/15/24 14:51 Currently or been in a relationship where the following occur: No concerns reported [facility] Head: Yes normal to inspection, Yes normocephalic and Yes atraumatic Ears: external ears normal Eyes General: appearance normal, both eyes and all related structures Eyelids: Yes eyelids normal Conjunctivae: conjunctivae normal Neck Neck: Yes normal visual inspection and Yes supple Resp Effort & Inspection: normal respiratory effort Auscultation: clear to auscultation bilaterally Cardio Jugular venous distension: no JVD Rate: regular rate Rhythm: regular rhythm Heart sounds: S1 normal heart sound present and S2 normal heart sound present GI Inspection: Yes normal to inspection Palpation (GI): Soft to palpation and nontender Auscultation: normal bowel sounds Skin General skin exam: no rashes or lesions noted Neuro General: no focal motor deficits Extrem General: Yes full ROM Psych Appearance: grossly normal Results AMB Hemoglobin A1c AMB Hemoglobin A1c 6.0 % Last Edit by JULIA Barbosa on 01/15/24 15:01 Results Reviewed Results Reviewed: Laboratory Last Values Hgb A1c (Clinic) 6.0 % (4.0-6.0) 01/15/24 14:58 Assessment and Plan Assessment & Plan (1) Physical exam: Code(s): Z00.00 - Encounter for general adult medical examination without abnormal findings Plan: Repeat in a year. (2) Type 2 diabetes mellitus: Code(s): E11.9 - Type 2 diabetes mellitus without complications Qualifiers: Diabetes mellitus nursing home insulin use: without nursing home use Diabetes mellitus complication status: without complication Qualified Code(s): E11.9 - Type 2 diabetes mellitus without complications Plan: Continue Janumet. A1c goal is equal or less than 7%. Orders: Orders XR DEXA axial skeleton Today Z13.820 - Encounter for screening for osteoporosis Comprehensive [place]. Panel Fast 4 Months E11.9 - Type 2 diabetes mellitus without complications AMB Hemoglobin A1c Today E11.9 - Type 2 diabetes mellitus without complications MM tomosynthesis screening BI Today Z12.31 - Encounter for screening mammogram for malignant neoplasm of breast Parietal Cell Antibody 4 Months E53.8 - Deficiency of other specified B group vitamins Intrinsic Factor Antibodies 4 Months E53.8 - Deficiency of other specified B group vitamins Vitamin B12 and Folate 4 Months E53.8 - Deficiency of other specified B group vitamins Lipid Panel 4 Months E11.9 - Type 2 diabetes mellitus without complications, E78.5 - Hyperlipidemia, unspecified Microalbumin, Random (w Creat) 4 Months E11.9 - Type 2 diabetes mellitus without complications, R80.9 - Proteinuria, unspecified Referrals Ophthalmology Referral E11.9 - Type 2 diabetes mellitus without complications Medications: New syringe with needle ([employer] Luer Slip Syringe-Needle) Use 1 needle once a month 1 ea 6RF E53.8 - Deficiency of other specified B group vitamins blood sugar diagnostic (FreeStyle Lite Strips) Use 1 strip once a day 100 ea 3RF E11.9 - Type 2 diabetes mellitus without complications cyanocobalamin (vitamin B-12) 1,000 mcg IM Q4W 4 weeks 1 mL 6RF E53.8 - Deficiency of other specified B group vitamins blood-glucose meter (FreeStyle Lite Meter kit) As directed 1 ea 0RF E11.9 - Type 2 diabetes mellitus without complications lancets (FreeStyle Lancets) Use 1 lancet once a day 100 ea 3RF E11.9 - Type 2 diabetes mellitus without complications Refilled spironolactone 25 mg PO DAILY 30 tabs 3RF losartan 100 mg PO DAILY 90 tabs 1RF E11.9 - Type 2 diabetes mellitus without complications cholecalciferol (vitamin D3) 25 mcg PO DAILY 90 days 90 caps 0RF Discontinued amlodipine Discontinued Reason: Patient Completed Course 5 mg PO DAILY 30 tabs 3RF Coding Level of Care Code Est Pt Prev Care >65y(92401) Diagnoses Physical exam Z00.00 Type 2 diabetes mellitus without complication, without long-term current use of insulin E11.9 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
[2024-01-15 14:52] VITALS: BP 120/60; BMI 29.7
== END 2024-01-15 15:17 | disposition home or self-care (01) ==
PROVIDERS: PCP Nurse Practitioner Family; Visit Provider Internal Medicine
DX: Z00.00 Encounter for general adult medical examination without abnormal findings (principal); E11.9 Type 2 diabetes mellitus without complications

== ENCOUNTER 2024-02-01 14:39 | Outpatient (REF) | payer MEDICARE, SELFPAY ==
--- NOTE | ~2024-02-01 | CT_ITS ---
EXAMINATION: CT CHEST WITHOUT CONTRAST CLINICAL INFORMATION: Solitary pulmonary nodule. COMPARISON: Chest CT 06/13/2023: 8 mm left lower lobe pulmonary nodule. No prior studies are available for comparison. Follow-up chest CT in 3-6 months is advised. TECHNIQUE: Multidetector volumetric CT imaging of the chest was done. Axial MIP volume rendering provided. Sagittal and coronal reformatted images were obtained. This CT examination was performed using dose optimization techniques as appropriate, variously including the following: *Automated exposure control *Adjustment of mA and/or kV according to patient size (this includes techniques or standardized protocols for targeted exams where dose is matched to indication/reason for exam; i.e. extremities or head) *Use of iterative reconstruction technique DLP: 198 mGy-cm FINDINGS: LUNGS: Again seen is a rounded 8 mm nodular opacity adjacent to left lower lobe atelectasis/scarring which is without significant change when compared to the prior study (5:400 compare prior 7:383). Adjacent 4 mm nodule just superomedial to this that is also unchanged (5:394 compare prior 7:380). Some other smaller micronodules, none larger than 3 mm, are also unchanged. There is no new, increasing sized or suspicious pulmonary nodule seen. MEDIASTINUM: The mediastinum is normal. CORONARY ARTERY CALCIFICATION: Present. PLEURA: There is no pleural effusion. No pleural mass or thickening. AXILLA: No lymphadenopathy. UPPER ABDOMEN: Status post cholecystectomy. OSSEOUS STRUCTURES: Unremarkable. CT/CT chest wo IV con IMPRESSION: Pulmonary nodules are unchanged. The largest is 8 mm in the left lower lobe. No evidence of malignancy. Additional followup recommended in 18-24 months. According to the UPDATED 2017 Fleischner Society recommendations, the advised followup imaging for a single 6-8 mm solid nodule is followup CT at 6 to 12 months. In high-risk patients, subsequent CT followup at 18 to 24 months is recommended. In low-risk patients, subsequent CT followup at 18 to 24 months is optional. Electronically signed by: Wilfredo Le MD 02/04/2024 02:21 PM EDT
== END 2024-02-01 14:40 | disposition home or self-care (01) ==
LOC: HO.CT 14:39
PROVIDERS: PCP Internal Medicine; Visit Provider Internal Medicine Pulmonary Disease
DX: R91.1 Solitary pulmonary nodule (principal)
CPT/HCPCS: 71250

== ENCOUNTER 2024-06-11 10:46 | Outpatient (AMB) | payer MEDICARE, MEDICAID, SELFPAY ==
--- NOTE | 2024-06-11 11:18 | MHC.PC.OV ---
Vital Signs 06/11/24 11:20 Height 5 ft 4 in Weight 167 lb BMI 28.7 BP 128/66 Blood Pressure Location Lt brachial Position Sitting Intake Visit Reasons: swollen legs Property Damage Claims Adjustor Required: No Accompanied by: Self / Same As Patient Allergies gluten Adverse Reaction (Intermediate, Uncoded 06/11/24 11:31) Diarrhea Medication List - Last Reconciled 06/11/24 by Janna Shipley MD albuterol sulfate 90 mcg/actuation 2 puffs inhalation Q4H PRN 30 days bisoprolol fumarate 5 mg PO DAILY blood sugar diagnostic (FreeStyle Lite Strips) Use 1 strip once a day blood-glucose meter (FreeStyle Lite Meter kit) As directed cholecalciferol (vitamin D3) 25 mcg PO DAILY 90 days diclofenac sodium 1% (Arthritis Pain (diclofenac)) 2 grams topical QID famotidine 20 mg PO DAILY fluticasone furoate-vilanterol 200-25 mcg/dose (Breo Ellipta) 1 ea PO DAILY fluticasone propionate 50 mcg/actuation (Flonase Allergy Relief) 2 sprays intranasal DAILY gabapentin 600 mg PO DAILY 90 days isosorbide mononitrate ER 30 mg PO DAILY lancets (FreeStyle Lancets) Use 1 lancet once a day loratadine (Allergy Relief (loratadine)) 10 mg PO DAILY losartan 100 mg PO DAILY montelukast (Singulair) 10 mg PO DAILY rosuvastatin 20 mg PO DAILY 90 days sitagliptin phos-metformin 50-1,000 mg (Janumet) 1 tab PO BID spironolactone 25 mg PO DAILY syringe with needle (Prefundia Luer Slip Syringe-Needle) Use 1 needle once a month Tobacco use date assessed: 07/27/23 Fall risk assessment: No Falls in past year Last assessed Fall Risk: 06/11/24 Dental Screening Dental Screen Date: 06/11/24 Did you have a dental visit in the last 12 months?: No Did you have a dental problem in the last 6 months where you did not have access to dental care?: No Was dental information given to patient?: No HPI HPI Comments History of Present Illness Details The patient is an 84-year-old female presenting with follow-up for management of diabetes, hypertension, asthma, and medication review. She has a history of essential hypertension, which recently required adjustment as she reported significant hypotensive episodes, leading to a temporary discontinuation of Losartan. Her blood pressure medication has been adjusted from 100 mg to 25 mg due to reduced blood pressure readings. The patient also has diabetes, controlled with Janumet, and additional management to protect renal function. She experiences seasonal allergies and is currently on Montelukast for asthma management, noting a history of bronchitis episodes, with ongoing nighttime rhonchi disrupting sleep. The patient was advised to increase the use of inhaled therapies for her respiratory symptoms. There is a history of anemia, potentially pernicious, and she requires follow-up laboratory testing for iron and vitamin B12 levels due to previous low values. The patient has a gluten allergy and is on chronic medications including Bisoprolol, Gabapentin, and Rosuvastatin. She denies smoking and alcohol use. [facility] Surgical History H/O cardiac catheterization Hx of cholecystectomy H/O total hysterectomy Family History Mother No problems noted. Father Diabetes Sister Breast cancer Sister Breast cancer Sister Liver cancer Social History Household Members: Family Housing: Other Alcohol intake: never Patient Tobacco Use Status: Never used Tobacco e-Cigarette/Vaping Use: Never Used Second Hand Smoke Exposure: No service: No Current occupational status: disabled Cognitive needs: No Hearing needs: No Vision needs: Yes Questionnaire PHQ-9 Over the last 2 weeks, how often have you been bothered by any of the following problems? 1. Little interest or pleasure in doing things: not at all 2. Feeling down, depressed, or hopeless: not at all 3. Trouble falling or staying asleep, or sleeping too much: not at all 4. Feeling tired or having little energy: not at all 5. Poor appetite or overeating: not at all 6. Feeling bad about yourself - or that you are a failure or have let yourself or your family down: not at all 7. Trouble concentrating on things, such as reading the newspaper or watching television: not at all 8. Moving or speaking so slowly that other people could have noticed. Or the opposite - being so fidgety or restless that you have been moving around a lot more than usual: not at all 9. Thoughts that you would be better off or of hurting yourself in some way: not at all Total score: 0 Depression Screening Interpretation: Negative Depression Screening Done: Yes 96040 - PHQ-9 Billing: Yes Source: Developed by Drs. Kenneth Urban, Kelli Rowland, Mandeep Bangura and colleagues, with an educational sandeep from [email or web address]. Thrive Questionnaire Date Thrive assessed: 06/11/24 I am a: Patient What is your living situation today?: I have a steady place to live Within the past 12 months, did the food you bought not last and you didn't have the money to get more?: I choose not to answer this question Within the past 12 months, did you worry whether your food would run out before you got money to buy more?: I choose not to answer this question Do you have trouble paying for medicines?: I choose not to answer this question Do you have trouble getting transportation to medical appointments?: I choose not to answer this question Do you have trouble paying your heating and electricity bill?: I choose not to answer this question Do you have trouble taking care of your child, family member or friend?: I choose not to answer this question Do you have trouble with day-to-day activities such as bathing, preparing meals, shopping, managing finances, etc.?: I choose not to answer this question Are you currently unemployed and looking for a job?: I choose not to answer this question Are you interested in more education?: I choose not to answer this question Please select the resources that you would like help with: None Currently or been in a relationship where the following occur: No concerns reported THRIVE Score: 0 AUDIT C Alcohol Use Questionnaire (AUDIT-C) 1. How often do you have a drink containing alcohol?: Never Total Score: 0 Score Reviewed/Action Taken: No BRADY-7 AMB Questionnaire BRADY-7 Date BRADY - 7 assessed: 06/11/24 Feeling nervous, anxious, or on edge: 0 = Not at all Not being able to stop or control worryin = Not at all Worrying too much about different things: 0 = Not at all Trouble relaxin = Not at all Being so restless that it is hard to sit still: 0 = Not at all Becoming easily annoyed or irritable: 0 = Not at all Feeling afraid as if something awful might happen: 0 = Not at all Total BRADY-7 score (0-4 normal; 5-9 mild; 10-14 moderate; 15-21 severe): 0 Source: Developed by Drs. Kenneth Urban, Kelli Rowland, Mandeep Bangura and colleagues, with an educational sandeep from [email or web address]. BRADY-7 Assessment Billing BRADY-7 Assessment Tool: BRADY-7 Assessment 37244 Review of Systems Const All systems reviewed & are unremarkable except as noted in HPI and below Card Denies chest pain at rest, Denies chest pain with activity, Denies edema, Denies irregular heart rhythm, Denies claudication, Denies dyspnea, Denies dyspnea on exertion, Denies orthopnea, Denies paroxysmal nocturnal dyspnea and Denies slow heart rate Resp Denies cough, Denies dyspnea and Denies dyspnea on exertion GI Denies abdominal pain, Denies change in bowel habits, Denies excessive flatus, Denies nausea and Denies vomiting Denies urinary incontinence, Denies urinary hesitancy and Denies urinary urgency Musc Denies atrophy, Denies deformity and Denies limited range of motion Skin/Breast Denies bleeding lesions, Denies changing lesions and Denies rash Physical exam (Primary Care) Vital Signs: Last Vital Signs BP 128/66 06/11/24 11:20 BMI result Body Mass Index 28.7 Tobacco/Smoking Status: Tobacco use Status Tobacco use date assessed 07/27/23 06/11/24 11:22 Patient Tobacco Use Status Never used Tobacco 06/11/24 11:22 e-Cigarette/Vaping Use Never Used 06/11/24 11:22 PHQ-9: PHQ-9 Score PHQ-9: Total score 0 06/11/24 11:33 Depression Screening Interpretation: Negative Thrive Assessment: Date of Thrive Assessment Date Thrive assessed 06/11/24 06/11/24 11:22 Currently or been in a relationship where the following occur: No concerns reported Resp Effort & Inspection: normal respiratory effort Auscultation: clear to auscultation bilaterally Cardio Jugular venous distension: no JVD Rate: regular rate Rhythm: regular rhythm Heart sounds: S1 normal heart sound present and S2 normal heart sound present Extrem General: Yes full ROM Office Procedures Flu Questionnaire Does the patient have a severe egg allergy?: No Results AMB Hemoglobin A1c AMB Hemoglobin A1c 6.0 % Last Edit by JULIA Barbosa on 06/11/24 12:23 Immunizations Fluarix Triv [id number] (PF) 45 mcg (15 mcg x 3)/0.5 mL IM syringe Performing Provider: Janna Shipley MD [place] [facility] [place] [facility] Documented (not given) by: JULIA Barbosa on 06/11/24 12:21 Reason Not Given: Patient Refused Coding Level of Care Code Est Pt Level 4 (56488) Complex EM visit Add On G2211 Diagnoses Type 2 diabetes mellitus without complication, without long-term current use of insulin E11.9 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 torch operator insulin use: without annealing torch operator use Diabetes mellitus complication status: without complication Hypertension I10 Asthma J45.909 B12 deficiency E53.8 Leg edema R60.0 Additional Codes BRADY-7 Assessment Billing - BRADY-7 Assessment Tool: BRADY-7 Assessment 51360 ([id number]) PHQ-9 - 40869 - PHQ-9 Billing: Yes ([id number]) Time Spent (min) 23 Assessment & Plan Assessment & Plan (1) Type 2 diabetes mellitus: Code(s): E11.9 - Type 2 diabetes mellitus without complications Category: Medical Qualifiers: 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 torch operator insulin use: without prison use Diabetes mellitus complication status: without complication Qualified Code(s): E11.9 - Type 2 diabetes mellitus without complications (2) Hypertension: Code(s): I10 - Essential (primary) hypertension Category: Medical (3) Asthma: Code(s): J45.909 - Unspecified asthma, uncomplicated Category: Medical (4) B12 deficiency: Code(s): E53.8 - Deficiency of other specified B group vitamins Category: Medical (5) Leg edema: Code(s): R60.0 - Localized edema Category: Medical Plan - Adjust Losartan dosage to 25 mg due to low blood pressure readings and continue monitoring. - Prescribe inhaled bronchodilator therapy for asthma management and advise daily use. - Order laboratory evaluations for complete blood count, serum iron levels, vitamin D and levels to monitor for anemia and other deficiencies. - Refill and review all current medications, ensuring Vitamin D and supplementation as needed. Patient was informed and verbally consented to the use of an ambient scribe for clinic note documentation during this visit. I discussed with the patient the importance of adjusting her hypertension regimen now that her blood pressure is better controlled. We thoroughly evaluated her current medication regimen and addressed her compliance with inhaler use for asthma. I highlighted the need for regular use to prevent exacerbations and for better nighttime symptom control. I emphasized the significance of ongoing management of her diabetes and hypertension for renal protection. I recommended laboratory evaluations to assess her ongoing anemia concerns and discussed potential pernicious anemia, highlighting the need for vitamin supplementation. Follow-up was scheduled to reassess her laboratory results and the efficacy of her asthma management strategy. Orders: Orders Influenza [id number] Immunization Today Z23 - Encounter for immunization AMB Hemoglobin A1c Today E11.9 - Type 2 diabetes mellitus without complications Complete Blood Count Auto Diff Today D64.9 - Anemia, unspecified Vitamin D 25-OH Total Today E55.9 - Vitamin D deficiency, unspecified Intrinsic Factor Antibodies Today E53.8 - Deficiency of other specified B group vitamins Parietal Cell Antibody Today E53.8 - Deficiency of other specified B group vitamins IRON PROFILE Today D64.9 - Anemia, unspecified Lipid Panel Today E78.5 - Hyperlipidemia, unspecified Microalbumin, Random (w Creat) Today R80.9 - Proteinuria, unspecified Vitamin B12 and Folate Today E53.8 - Deficiency of other specified B group vitamins Comprehensive [place]. Panel Fast Today E11.9 - Type 2 diabetes mellitus without complications NT-proBNP Today R60.0 - Localized edema Medications: New losartan 25 mg PO DAILY 90 days 90 tabs 1RF Discontinued losartan Discontinued Reason: Patient Completed Course 100 mg PO DAILY 90 tabs 1RF E11.9 - Type 2 diabetes mellitus without complications Patient Instructions: - Take prescribed Losartan dosage of 25 mg daily. - Use prescribed inhaler every day to control asthma symptoms. - Continue with current diabetes medications. - Avoid gluten-containing foods due to allergy. - Schedule laboratory tests for vitamin and anemia evaluations as instructed. - Follow up in August for review of laboratory results and management plan.
[2024-06-11 11:20] VITALS: BP 128/66; BMI 28.7
== END 2024-06-11 11:39 | disposition home or self-care (01) ==
PROVIDERS: PCP Internal Medicine; Visit Provider Internal Medicine
DX: E11.9 Type 2 diabetes mellitus without complications (principal); I10 Essential (primary) hypertension; J45.909 Unspecified asthma, uncomplicated; E53.8 Deficiency of other specified B group vitamins; R60.0 Localized edema; Z23 Encounter for immunization

== ENCOUNTER → 2024-06-11 10:46 | Outpatient (BNVA) | payer MEDICARE, MEDICAID, SELFPAY | PROVIDERS: PCP Internal Medicine; Visit Provider Internal Medicine | DX: E11.9 Type 2 diabetes mellitus without complications (principal); I10 Essential (primary) hypertension; J45.909 Unspecified asthma, uncomplicated; E53.8 Deficiency of other specified B group vitamins; R60.0 Localized edema | CPT/HCPCS: 83036; 90471; 96127; 99212 ==

== ENCOUNTER 2024-08-21 12:29 | Outpatient (REF) | payer MEDICARE, SELFPAY ==
[2024-08-21 15:19] LABS: MANUAL DIFF FLAG NO
[2024-08-21 15:47] LABS: Basophils Percent Auto 0.6 % (0-2); Eosinophils Absolute Auto 0.2 X10*3/uL (0.0-0.4); Eosinophils Percent Auto 3.3 % (0-4); Hematocrit 34.6 % (37.0-47.0); Imm Gran Abs Auto 0.01 X10*3/uL (0.00-0.03); Imm Gran Pct Auto 0.2 % (0.0-0.4); Lymphocytes Absolute Auto 1.4 X10*3/uL (1.2-4.9); Mean Corpuscular HGB Conc 31.8 g/dl (31.0-35.0); Mean Corpuscular Volume 94.3 fL (80.0-98.0); Mean Platelet Volume 10.5 fL (9.4-12.3); Monocytes Absolute Auto 0.5 X10*3/uL (0.1-1.2); Monocytes Percent Auto 9.4 % (2-11); Neutrophils Absolute Auto 3.4 x10*3/uL (2.0-8.3); Neutrophils Percent Auto 61.5 % (45-73); Platelet Count 197 X10*3/uL (160-400); Red Blood Count 3.67 X10*6/uL (4.20-5.50); Red Cell Distribution Width 13.5 % (11.0-16.0); White Blood Count 5.4 X10*3/uL (4.8-10.8)
[2024-08-21 16:07] LABS: Alanine Aminotransferase 11 U/L (0-31); Albumin Level 3.8 g/dL (3.5-5.0); Anion Gap 14 (12-20); Aspartate Amino Transferase 26 U/L (5-31); Bilirubin Total 0.2 mg/dL (0.0-1.0); Blood Urea Nitrogen 26 mg/dL (9-16); Calcium 9.3 mg/dL (8.4-10.2); Carbon Dioxide 24 mmol/L (22-29); Chloride 107 mmol/L (96-108); Cholesterol 182 mg/dL (<200); Estimated Glomerular Filt Rate 50; Glucose Fasting 85 mg/dL (60-99); HDL Cholesterol 56 mg/dL (>40); Iron 50 mcg/dL (30-160); LDL Cholesterol Calculated 110 mg/dL (<100); Percent Iron Saturation 18 % (15-50); Potassium 4.6 mmol/L (3.3-5.1); Sodium 140 mmol/L (135-145); Total Iron Binding Capacity 277 mcg/dL (228-428); Triglycerides 80 mg/dL (<150); Unsaturated Iron Binding 227 ug/dL
[2024-08-21 16:15] LABS: Creatinine Urine 104.99 mg/dL; Microalbum/Creatinine Ratio Ur 52.3 ug/mg cr (<30)
[2024-08-21 16:23] LABS: Alkaline Phosphatase 64 U/L (39-117)
[2024-08-21 16:30] LABS: Ferritin 24 ng/mL (10-250); Vitamin D 25-OH Total 34.7 ng/mL (>30)
[2024-08-21 16:44] LABS: Vitamin B12 216 pg/mL (200-900)
[2024-08-22 07:58] LABS: NT-proBNP 239 pg/mL (<450)
[2024-08-22 15:19] LABS: Immunoglobulin A 337 mg/dL (70-320)
[2024-08-22 20:28] LABS: Transglutaminase Ab IgG <1.0 U/mL
[2024-08-23 21:33] LABS: Intrinsic Factor Antibodies Negative (Negative)
[2024-08-28 22:19] LABS: Parietal Cell Antibody <=20.0 Unit (<=20.0)
== END 2024-08-21 12:30 | disposition home or self-care (01) ==
LOC: HO.LAB 12:29
PROVIDERS: PCP Internal Medicine; Visit Provider Internal Medicine
DX: K90.0 Celiac disease (principal); D51.0 Vitamin B12 deficiency anemia due to intrinsic factor deficiency; E11.9 Type 2 diabetes mellitus without complications; E55.9 Vitamin D deficiency, unspecified; D64.9 Anemia, unspecified; R60.0 Localized edema; E78.5 Hyperlipidemia, unspecified; R80.9 Proteinuria, unspecified
CPT/HCPCS: 36415; 80053; 80061; 82043; 82306; 82570; 82607; 82728; 82746; 82784; 83516; 83540; 83880; 85025; 86340; 86364; 99202

== ENCOUNTER 2024-08-21 12:29 | Outpatient (AMB) | payer MEDICARE, MEDICAID, SELFPAY ==
--- NOTE | 2024-08-21 13:22 | MHC.OFFVIS ---
Vital Signs 08/21/24 13:29 Height 5 ft 4 in Weight 167 lb 8.821 oz BMI 28.8 BP 138/61 Blood Pressure Location Lt brachial Position Sitting Pulse 67 Intake Visit Reasons: Abd pain, diarrhea, anemia Intake Note: Charity presents in the office as a new patient for abdominal pains, diarrhea, anemia, CC: Diarrhea, she states that sometimes she has pains in the stomach. Cloth Bolt Bander Required: Yes Allergies gluten Adverse Reaction (Intermediate, Uncoded 08/21/24 13:29) Diarrhea HPI Comments Details: 84 y.o F with PMH of gluten allergy and pernicious anemia who is here to establish care. Independently ambulating female, or having from home. Accompanied by her granddaughter. Seen with the help of ecological technical officer. Previously used to live in [place], moved two and a half years ago. Pt reports EGD/colo almost 5 years ago in [place]. Had 1 polyp in colon at that time and was told that is benign. Currently, has no new complaints including abdominal pain, nausea, vomiting. Reports chronic history of abdominal cramping and diarrhea, especially if she consumes gluten. Is found of bread, and often sneaks in some during the week. Labs reviewed, has pernicious anemia. Reports regular B12 shots when she was in [place], so far has only received 1 B12 shot through her PCP office. [facility] Surgical History H/O cardiac catheterization Hx of cholecystectomy H/O total hysterectomy Family History Mother No problems noted. Father Diabetes Sister Breast cancer Sister Breast cancer Sister Liver cancer Social History Household Members: Family Housing: Other Alcohol intake: never Patient Tobacco Use Status: Never used Tobacco e-Cigarette/Vaping Use: Never Used Second Hand Smoke Exposure: No service: No Current occupational status: disabled Cognitive needs: No Hearing needs: No Vision needs: Yes Review of Systems Const All systems reviewed & are unremarkable except as noted in HPI and below Physical Exam Vital Signs: Last Vital Signs Pulse 67 08/21/24 13:29 BP 138/61 08/21/24 13:29 BMI result Body Mass Index 28.8 No apparent distress Nonicteric Abdomen soft, nondistended Alert and oriented x3, normal gait Assessment & Plan Assessment & Plan (1) Celiac disease: Code(s): K90.0 - Celiac disease Category: Medical (2) B12 deficiency: Code(s): E53.8 - Deficiency of other specified B group vitamins Category: Medical (3) Anemia, pernicious: Code(s): D51.0 - Vitamin B12 deficiency anemia due to intrinsic factor deficiency Category: Medical Plan 1. Anemia likely secondary to B12 deficiency, likely pernicious in nature. Plan: -anti parietal and intrinsic factor antibody already ordered by the PCP -recheck B12, folate and MMA -if low, will arrange for parenteral B12 therapy 2. Abdominal cramping and diarrhea As suggested by clinical history, likely secondary to gluten indiscretion. Plan: -patient counseled extensively regarding gluten free diet adherence -will check celiac panel -will also benefit from nutrition referral Follow-up 3 months Orders: Orders Transglutaminase IgA Today K90.0 - Celiac disease Transglutaminase Ab IgG Today K90.0 - Celiac disease Methylmalonic Acid Today E53.8 - Deficiency of other specified B group vitamins Immunoglobulin A Today K90.0 - Celiac disease Ferritin Today K90.0 - Celiac disease Vitamin D 25-OH Total Today K90.0 - Celiac disease Vitamin B12 and Folate Today K90.0 - Celiac disease Coding Level of Care Code New Pt Level 4 (78675) Diagnoses Celiac disease K90.0 B12 deficiency E53.8 Anemia, pernicious D51.0
[2024-08-21 13:29] VITALS: BP 138/61; PULSE 67; BMI 28.8
--- OUTSIDE RECORDS SUMMARY | 2024-08-21 14:44 | XMS_ITS | Patient Health Record ---
[facility] Address [address] [place] [phone] Care Team Providers Care Religion Teacher Name Role Phone JOSEPH BROOKS Primary Care Provider ALLERGIES Allergen (clinical drug ingredient) Drug/Non Drug Allergy documented on EMR Reaction Allergy Type Onset Date Status Seasonale Unknown Drug Allergy Active REASON FOR REFERRAL No Information MEDICATIONS Medication SIG (Take, Route, Frequency, Duration) Notes Start Date End Date Status Losartan Potassium 100 MG 1 tablet Orall y Once a day for 90 days Active amLODIPine Besylate 5 MG 1 tablet Orally Once a day for 90 days Active Breo Ellipta 200-25 MCG/ACT 1 puff Inhal ation Once a day for 30 days Active Spironolactone 25 MG 1 tablet Orally onc e a day for 90 days Active Albuterol Sulfate HFA 108 (90 Base) MCG/ACT 1 puff as needed Inhalation every 4 hrs for 30 days Active Montelukast Sodium 10 MG 1 tablet Orally Once a day for 90 days Active Famotidine 20 MG 1 tablet daily Orall y Once a day for 90 days Active Gabapentin 600 MG 1 tablet Orally twic e a day for 30 days Active Loratadine 10 MG 1 tablet Orally Once a day for 90 days Active Bisoprolol Fumarate 5 MG 1 tablet Orally Once a day for 90 days Active Isosorbide Dinitrate 30 MG 1 tablet Oral ly Once a day for 90 days Active Nitroglycerin 0.4 MG as directed Subling ual prn for 30 days Active ReliOn True Metrix Test Strips - as directed In Vitro for 90 days 12/09/2022 Active Lancets 30G - as directed for 90 days 12/09/2022 Active SITagliptin Phos-metFORMIN HCl 50-1000 MG 1 tablet with meals Orally Twice a day for 90 days Active SOCIAL HISTORY Tobacco Use: Social History Observation Description Date Details (start date - stop date) Never Smoker NA - NA Sex Assigned At : Social History Observation Description Sex Assigned At Unknown Tobacco Use/Smoking Question Answer Notes Tobacco use: nonsmoker Section Notes: Living in [place] with her granddaughter PROBLEMS Problem Type ICD Code Onset Dates Problem Status W/U Status Risk SNOMED Code Notes Problem Type 2 diabetes mellitus with diabetic chronic kidney disease (E11.22) Active confirmed 82839677 Problem Morbid (severe) obesity due to excess calories (E66.01) Active confirmed 673221092 Problem Hypertensive chronic kidney disease with stage 1 through stage 4 chronic kidney disease, or unspecified chronic kidney disease (I12.9) Active confirmed 52942661 Problem Hypertensive heart and chronic kidney disease with heart failure and stage 1 through stage 4 chronic kidney disease, or unspecified chronic kidney disease (I13.0) Active confirmed 77516597407164 Problem Chronic right heart failure (I50.812) Active confirmed 62380780 Problem Chronic kidney disease, stage 3a (N18.31) Active confirmed 981888714 Problem Vitamin D deficiency (E55.9) Active confirmed 63811725 Problem Gastroesophageal reflux disease without esophagitis (K21.9) Active confirmed 792219406 Problem BMI 35.0-35.9,adult (Z68.35) Active confirmed 403975154 Problem Diabetic peripheral angiopathy (E11.51) Active confirmed 036428675 Problem Moderate persistent asthma without complication (J45.40) Active confirmed 306717147 Problem 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) Active confirmed 799642110 PLAN OF TREATMENT Pending Test Test Name Order Date ELECTROCARDIOGRAM, COMPLETE 12/09/2022 Future Test Test Name Order Date 1,25OH VITAMIN D 12/09/2022 CBC (COMPLETE BLOOD COUNT) 12/09/2022 COMPREHENSIVE METABOLIC PANEL 12/09/2022 CRP, HIGH SENSITIVITY 12/09/2022 HEMOGLOBIN A1C 12/09/2022 HOMOCYSTEINE, PLASMA 12/09/2022 METHYLMALONIC ACID, SERUM 12/09/2022 MICROALBUMIN, URINE 12/09/2022 SEDIMENTATION RATE 12/09/2022 THYROID PEROXIDASE (ANTIMICROSOMAL) ANTI BODIES 12/09/2022 LIPID PANEL 12/09/2022 THYROID PANEL 12/09/2022 Insurance Providers Payer Name Payer Address Payer Phone Subscriber Number Group Number Insured Name Patient Relationship to Insured Coverage Start Date Coverage End Date Medicare [address] [place] [address] [phone] [id number] RADHA SPENCER Self - patient is the insured [facility] [address] [place] [address] [phone] [id number] RADHA SPENCER Self - patient is the insured MEDICAL (GENERAL) HISTORY Medical History History ICD Code Allergies Osteoarthritis Diabetes II Childhood Diabetes Hypertension Osteoporosis Sleep apnea Surgical History Surgery Date(Month/Year) Breast Biopsy 2006 Colonoscopy Coronary Bypass 2018 Echocardiogram 2009 Cholesectomy 2025 Removal of Ovary Hospitalization History Reason Date(Month/Year) Ovary Removal Gallbladder removal 2105 Coronary Bypass 2018
--- OUTSIDE RECORDS SUMMARY | 2024-08-21 14:45 | XMS_ITS ---
Author Organization [facility] Address [address] [place] [address] Care Team Providers Care Process Safety Specialist Name Role Phone Betzaida Corey Primary Care Provider Tona Vargas [phone] Encounters Encounter Location Date Provider Diagnosis [address] [phone] 04/08/2024 Tona Arias Plan Of Treatment No Information Progress Notes * Charity CERVANTESDOB:[birth year] (84 yo F)Acc No.[id number]:04/08/2024 Progress Note Patient:Kinsey GUZMANz Provider:?Tona Arias DPM :1940???Age:83 Y???Sex:Female D ate:04/08/2024 Address:[address] [place], [place] [id number] Pcp:Betzaida Corey Subjective: * Chief Complaints: * ??? * Medical History:? Objective: * Vitals:? Assessment: Plan: * Treatment: * Images: * The named appointment provid er may or may not be the originator of this progress note, and it is not deemed complete until electronically signed by the appointment provider. Sign off status: Pending * Provider:?Tona Arias DPM Date:?12/2023 Generated for Lashay malik/Saurav/eTbrismitting on:?08/21/2024 02:45 PM EDT
--- OUTSIDE RECORDS SUMMARY | 2024-08-21 14:45 | XMS_ITS ---
Author Organization [facility] Address [address] [place] [address] Care Team Providers Care Phone Triage Specialist Name Role Phone MadhavBetzaida Primary Care Provider Tona Vargas [phone] REASON FOR VISIT N/S 04/08/24 Encounters Encounter [facility] Date [facility] [address] [place] [phone] 04/08/2024 Tona Arias Plan Of Treatment No Information Progress Notes * Charity CERVANTESDOB:[birth year] (83 yo F)Acc No.[id number]:04/08/2024 Patient:?JUVENALUBALDONORAH Charity :1940???Age:83 Y???Sex:Female Address:[address] [place] [phone] * true * Date:? Generated for Terrii helena/Saurav/eTransmitting on:?08/21/2024 02:44 PM EDT
--- OUTSIDE RECORDS SUMMARY | 2024-08-21 14:46 | XMS_ITS ---
Author Organization [facility] Address [address] [place] [address] Care Team Providers Care Lead Systems Analyst Name Role Phone MadhavBetzaida Primary Care Provider Tona Vargas [phone] REASON FOR VISIT Balance CCA Encounters Encounter Location Date Provider Diagnosis [facility] [address] [place] [address] 04/08/2024 Tona Arias Plan Of Treatment No Information Progress Notes * Charity CERVANTESDOB:[birth year] (84 yo F)Acc No.[id number]:04/08/2024 Patient:?Charity CERVANTES :1940???Age:83 Y???Sex:Female Address:[address] [place] [id number] * true * Date:? Generated for Printi ng/Saurav/eTransmitting on:?08/21/2024 02:45 PM EDT
--- OUTSIDE RECORDS SUMMARY | 2024-08-21 14:46 | XMS_ITS | Patient Health Record ---
Author Organization [facility] Billing Info Address [address] [place] [address] Care Team Providers Care Summer School Coordinator Name Role Phone Selvin Diggs Primary Care Provider Unavailab le Reason For Referral No Information Medications Medication SIG (Take, Route, Frequency, Duration) Notes Start Date End Date Status Losartan Potassium 100 MG 1 tablet Orall y Once a day for 30 day(s) Active Janumet 50-1000 MG 1 tablet with meals Orally Twice a day for 30 day(s) Active Aspirin 81 81 MG 1 tablet Orally Once a day for 30 day(s) Active Social History Tobacco Use: Social History Observation Description Date Details (start date - stop date) Never Smoker NA - NA Tobacco Status: Question Answer Notes Patient is a never smoker Problems Problem Type SNOMED Code ICD Code Onset Dates Problem Status W/U Status Risk Notes Problem [id number] Asymptomatic gallstones (K80.20) Active confirmed Plan Of Treatment No Information Insurance Providers Payer Name Payer Address Payer Phone Subscriber Number Group Number Insured Name Patient Relationship to Insured Coverage Start Date Coverage End Date [facility]GERY [facility] [address] [place], [place] [id number] Charity Douglas Self - patient is the insured 8 Medical (General) History Medical History History ICD Code gallbladder disease hypertension diabetes heart disease Surgical History Surgery Date(Month/Year) hysterectomy full 1987 Hospitalization History Reason Date(Month/Year) right side chest pain 11/20/17
--- OUTSIDE RECORDS SUMMARY | 2024-08-21 14:46 | XMS_ITS | Patient Health Record ---
Author Organization [facility] Address [address] [facility], [place] [address] Care Team Providers Care Water Proofer Name Role Phone Betzaida Corey Primary Care Provider Tona Vargas Unavailable [phone] Allergies Allergen (clinical drug ingredient) Drug/Non Drug Allergy documented on EMR Reaction Allergy Type Onset Date Status Gluten Gluten diarrhea Allergy Active Reason For Referral No Information Medications Medication SIG (Take, Route, Frequency, Duration) Notes Start Date End Date Status Albuterol Sulfate HFA 108 (90 Base) MCG/ACT INHALE 1 PUFF BY MOUTH EVERY 4 HOURS NEEDED FOR SHORTNESS OF BREATH Inhalation for 33 Days Active Vitamin D3 25 MCG (1000 UT) TAKE 1 CAPSU LE BY MOUTH EVERY DAY Oral for 90 Days Active Gabapentin 600 MG TAKE 1 TABLET BY VAN TH DAILY Oral for 30 Days Active Montelukast Sodium 10 MG TAKE 1 TABLET B Y MOUTH DAILY Oral for 30 Days Active Fluticasone Furoate-Vilanterol 200-25 MCG/ACT Inhalation for 30 Days Activ e Extra Depth Orthopedic Shoes (1 Pair) with Customized Heat Molded Multidensity Innersoles (3 Pair) as directed Dx: NIDDM/Polyneuropathy (E11.42), Hammertoe Foot Deformity (M20.41,M20.42), Preulcerative Skin Lesion(s) (L85.1 09/11/2023 Active Custom Orthotics as directed 09/11/2023 Active Losartan Potassium 100 MG Oral for 90 Days Active Bisoprolol Fumarate 5 MG TAKE 1 TABLET B Y MOUTH EVERY DAY Oral for 15 Days Active Isosorbide Mononitrate ER 30 MG TAKE 1 TABLET BY MOUTH DAILY Oral for 30 Days Active Spironolactone 25 MG TAKE 1 TABLET BY MO UTH EVERY DAY Oral for 90 Days Active Loratadine 10 MG TAKE 1 TABLET BY VAN TH EVERY DAY Oral for 30 Days Active Janumet 50-1000 MG TAKE 1 TABLET BY VAN TH TWICE DAILY Oral for 30 Days Active amLODIPine Besylate 5 MG TAKE 1 TABLET B Y MOUTH EVERY DAY Oral for 15 Days Active Social History Tobacco Use: Social History Observation Description Date Details (start date - stop date) Never Smoker NA - NA Tobacco Use/Smoking Question Answer Notes Are you a: nonsmoker Additional Findings: Tobacco Non-User Current no n-smoker Alcohol Screen Question Answer Notes Did you have a drink containing alcohol in the p ast year? No Points 0 Interpretation Negative Tobacco use other than smoking: Question Answer Notes Are you an other tobacco user? No Problems Problem Type SNOMED Code ICD Code Onset Dates Problem Status W/U Status Risk Notes Problem Acquired hammer toe of right foot (1742941470454461 ) Other hammer toe(s) (acquired), right foot (M20.41) Active confirmed Problem Acquired hammer toe of left foot (6380163242479441 ) Other hammer toe(s) (acquired), left foot (M20.42) Active confirmed Problem Polyneuropathy due to diabetes mellitus type I (555029922) Type 1 diabetes mellitus with diabetic polyneuropathy (E10.42) Active confirmed Problem Polyneuropathy due to type 2 diabetes mellitus (300040166) Type 2 diabetes mellitus with diabetic polyneuropathy (E11.42) Active confirmed Problem Plantar fasciitis of left foot (1635942873175899 1) Plantar fasciitis of left foot (M72.2) Active confirmed Problem Interstitial myositis (06965171) Interstitial myositis of left foot (M60.172) Active confirmed Vital Signs Height 4 ft 11 in in 01/29/2024 Weight 170 lbs 01/29/2024 BMI 34.33 kg/m2 01/29/2024 Encounters Encounter Location Date Provider Diagnosis [facility] [place] [address] 09/11/2023 Tona Arias Type 2 diabetes mellitus with diabetic polyneuropathy E11.42 ; Plantar fasciitis of left foot M72.2 ; Tinea unguium B35.1 ; Pain in left foot M79.672 ; Interstitial myositis of left foot M60.172 ; Other hammer toe(s) (acquired), right foot M20.41 and Other hammer toe(s) (acquired), left foot M20.42 [facility] [address] [place] [address] 11/13/2023 Tona Arias Type 2 diabetes mellitus with diabetic polyneuropathy E11.42 ; Plantar fasciitis of left foot M72.2 ; Tinea unguium B35.1 ; Pain in left foot M79.672 ; Interstitial myositis of left foot M60.172 ; Other hammer toe(s) (acquired), right foot M20.41 and Other hammer toe(s) (acquired), left foot M20.42 [facility] [address] [place] [address] 01/29/2024 Tona Arias Type 2 diabetes mellitus with diabetic polyneuropathy E11.42 ; Tinea unguium B35.1 and Ingrown nail L60.[address] [facility] [address] 08/30/[address] [address] [facility]/11[facility] [address] 01/29/2024 [facility] [address] [place] [address] 04/08/20[address] [facility] [address] 04/08/2024 Tona Arias Assessments Encounter Date Diagnosis (ICD Code) Assessment Notes Treatment Notes Treatment Clinical Notes Section Notes 09/11/2023 Type 2 diabetes mellitus with diabetic polyneuropathy (ICD-10 - E11.42) 09/11/2023 Plantar fasciitis of left foot (ICD-10 - M72.2) Patient Educated with: HEEL CORD STRETCHES.pdf (HEEL CORD STRETCHES.pdf ) Patient Educated with: RICE THERAPY.pdf (RICE THERAPY.pdf) 11/13/2023 Type 2 diabetes mellitus with diabetic polyneuropathy (ICD-10 - E11.42) 01/29/2024 Type 2 diabetes mellitus with diabetic polyneuropathy (ICD-10 - E11.42) 01/29/2024 Tinea unguium (ICD-10 - B35.1) 01/29/2024 Ingrown nail (ICD-10 - L60.0) 11/13/2023 Tinea unguium (ICD-10 - B35.1) 11/13/2023 Plantar fasciitis of left foot (ICD-10 - M72.2) 09/11/2023 Tinea unguium (ICD-10 - B35.1) 09/11/2023 Pain in left foot (ICD-10 - M79.672) 11/13/2023 Pain in left foot (ICD-10 - M79.672) 11/13/2023 Interstitial myositis of left foot (ICD-10 - M60.172) 09/11/2023 Interstitial myositis of left foot (ICD-10 - M60.172) 11/13/2023 Other hammer toe(s) (acquired), right foot (ICD-10 - M20.41) 09/11/2023 Other hammer toe(s) (acquired), right foot (ICD-10 - M20.41) Patient Educated with: DIABETIC FOOT CARE INSTRUCTIONS. pdf (DIABETIC FOOT CARE INSTRUCTIONS. pdf) 09/11/2023 Other hammer toe(s) (acquired), left foot (ICD-10 - M20.42) 11/13/2023 Other hammer toe(s) (acquired), left foot (ICD-10 - M20.42) Plan Of Treatment No Information Insurance Providers Payer Name Payer Address Payer Phone Subscriber Number Group Number Insured Name Patient Relationship to Insured Coverage Start Date Coverage End Date [facility] [address] [place] [id number] Charity Win Self - patient is the insured Medical (General) History Medical History History ICD Code Arthritis asthma Back,Hip,and Knee pain Diabetic Diverticulosis High blood pressure Poor circulation sinusitis Osteoporosis Surgical History Surgery Date(Month/Year) 2019
== END 2024-08-21 14:14 | disposition home or self-care (01) ==
LOC: HO.HGI 12:30
PROVIDERS: PCP Internal Medicine; Visit Provider Internal Medicine
DX: K90.0 Celiac disease (principal); E53.8 Deficiency of other specified B group vitamins
CPT/HCPCS: 99204

== ENCOUNTER 2024-09-04 07:56 | Outpatient (AMB) | payer MEDICARE, SELFPAY ==
--- OUTSIDE RECORDS SUMMARY | 2024-09-04 07:59 | XMS_ITS ---
Author Organization [facility] Address [address] [place] [address] Care Team Providers Care Wall Cleaner Name Role Phone MadhavBetzaida Primary Care Provider Tona Vargas [phone] REASON FOR VISIT Balance CCA Encounters Encounter Location Date Provider Diagnosis [facility] [address] [place] [address] 04/08/2024 Tona Arias Plan Of Treatment No Information Progress Notes * Charity CERVANTESDOB:[birth year] (84 yo F)Acc No.[id number]:04/08/2024 Patient:?Charity CERVANTES :1940???Age:83 Y???Sex:Female Address:[address] [place] [address] * true * Date:? Generated for Printi ng/Fayoug/eTransmitting on:?09/04/2024 07:59 AM EDT
--- OUTSIDE RECORDS SUMMARY | 2024-09-04 07:59 | XMS_ITS | Continuity of Care Document ---
Author Organization [facility] Address [address] [place] [address] Phone Care Team Providers Care Child Care Associate Name Role Phone Yvan Mittal MD Unavailable Unavailable Procedures Procedure Date ANESTH, LOW INTESTINE SCOPE Advance Directives Directive Yes / No Effective Date File Name No Information Encounters Encounter Description Practice Location Reason(s) For Visit Diagnoses Date Provider Providers Copied on Encounter [facility], [address], [place], [place], [id number], [place] tel:[phone] [facility] No Information 5 Kyrie Santoro. [address] [facility], [address], [place], [place], [id number] , [place]. tel:[phone] Family History Family Member Type Diagnosis Age At Onset No Information Payers Payer name Insurance type Covered alliance party ID Authoriza timolly(s) [employer] CI [id number] Social History Type Description Quantity Date Captured [...]
--- OUTSIDE RECORDS SUMMARY | 2024-09-04 07:59 | XMS_ITS | Patient Health Record ---
Author Organization [facility] Address [address] [place] [address] Care Team Providers Care Automotive Sales Executive Name Role Phone Betzaida Corey Primary Care Provider Tona Vargas Unavailable [phone] Allergies Allergen (clinical drug ingredient) Drug/Non Drug [...] Problem Acquired hammer toe of right foot (6125949323706195 ) Other hammer toe(s) (acquired), right foot (M20.41) Active confirmed Problem Acquired hammer toe of left foot (7255198967035055 ) Other hammer toe(s) (acquired), left foot (M20.42) Active confirmed Problem Polyneuropathy due to diabetes mellitus type I (094661744) Type 1 diabetes mellitus with diabetic polyneuropathy (E10.42) Active confirmed Problem Type 2 diabetes mellitus with diabetic polyneuropathy (E11.42) Active confirmed Problem Plantar fasciitis of left foot (3568791830538728 1) Plantar fasciitis of left foot (M72.2) Active confirmed Problem Interstitial myositis (95548006) Interstitial myositis of left foot (M60.172) Active confirmed Vital Signs Height 4 ft 11 in in 01/29/2024 Weight 170 lbs 01/29/2024 BMI 34.33 kg/m2 01/29/2024 Encounters Encounter Location Date Provider Diagnosis [facility] [place] [address] 09/11/2023 Tona Arias Type 2 diabetes mellitus with diabetic polyneuropathy E11.42 ; Plantar fasciitis of left foot M72.2 ; Tinea unguium B35.1 ; Pain in left foot M79.672 ; Interstitial myositis of left foot M60.172 ; Other hammer toe(s) (acquired), right foot M20.41 and Other hammer toe(s) (acquired), left foot M20.[address] [facility] [address] 11/13/2023 Tona Arias Type 2 diabetes mellitus with diabetic polyneuropathy E11.42 ; Plantar fasciitis of left foot M72.2 ; Tinea unguium B35.1 ; Pain in left foot M79.672 ; Interstitial myositis of left foot M60.172 ; Other hammer toe(s) (acquired), right foot M20.41 and Other hammer toe(s) (acquired), left foot M20.[address] [facility] [address] 01/29/2024 Tona Arias Type 2 diabetes mellitus with diabetic polyneuropathy E11.42 ; Tinea unguium B35.1 and Ingrown nail L60.0 [facility] [address] [facility] [facility] [address] [facility] [address] [place] [address] 04/08/[address] [facility] [address] 04/08/2024 Tona Arias Assessments Encounter Date Diagnosis [...] Insured Coverage Start Date Coverage End Date [facility] [address] [place] [id number] [facility] Charity monzon Self - patient is the insured Medical (General) History Medical History History ICD Code Arthritis asthma Back,Hip,and Knee pain Diabetic Diverticulosis High blood pressure Poor circulation sinusitis Osteoporosis Surgical History Surgery Date(Month/Year) cholecystectomy 2019
--- OUTSIDE RECORDS SUMMARY | 2024-09-04 07:59 | XMS_ITS ---
Author Organization [facility] Address [address] [place] [address] Care Team Providers Care Glass Etcher Helper Name Role Phone Betzaida Corey Primary Care Provider Tona Vargas [phone] Encounters Encounter Location Date Provider Diagnosis [address] [address] 04/08/2024 Tona Arias Plan Of Treatment No Information Progress Notes * Charity CERVANTESDOB:[birth year] (84 yo F)Acc No.[id number]:04/08/2024 Progress Note Patient:Kinsey GUZMANz Provider:?Tona Arias DPM :1940???Age:83 Y???Sex:Female D ate:04/08/2024 Address:[address] [place], [place] [address] Pcp:Betzadia Corey Subjective: * Chief Complaints: * ??? * Medical History:? Objective: * Vitals:? Assessment: Plan: * Treatment: * Images: * The named appointment provid er may or may not be the originator of this progress note, and it is not deemed complete until electronically signed by the appointment provider. Sign off status: Pending * Provider:?Tona Arias DPM Date:?12/2023 Generated for Lashay malik/Saurav/eTbrismitting on:?09/04/2024 07:59 AM EDT
--- OUTSIDE RECORDS SUMMARY | 2024-09-04 07:59 | XMS_ITS | Patient Health Record ---
Author Organization [facility] [employer] [facility] Address [address] [place] [id number] Care Team Providers Care Patcher Bowling Ball Name Role Phone JOSEPH BROOKS Primary Care [...] Tobacco use: nonsmoker Section Notes: Living in [place] with her granddaughter PROBLEMS Problem Type ICD Code Onset Dates Problem Status W/U Status Risk SNOMED Code Notes Problem Type 2 diabetes mellitus with diabetic chronic kidney disease (E11.22) Active confirmed 25832341 Problem Morbid (severe) obesity due to excess calories (E66.01) Active confirmed 932125938 Problem Hypertensive chronic kidney disease with stage 1 through stage 4 chronic kidney disease, or unspecified chronic kidney disease (I12.9) Active confirmed 18740992 Problem Hypertensive heart and chronic kidney disease with heart failure and stage 1 through stage 4 chronic kidney disease, or unspecified chronic kidney disease (I13.0) Active confirmed 87667297694546 Problem Chronic right heart failure (I50.812) Active confirmed 85418218 Problem Chronic kidney disease, stage 3a (N18.31) Active confirmed 062056566 Problem Vitamin D deficiency (E55.9) Active confirmed 64733594 Problem Gastroesophageal reflux disease without esophagitis (K21.9) Active confirmed 812191924 Problem BMI 35.0-35.9,adult (Z68.35) Active confirmed 847890158 Problem Diabetic peripheral angiopathy (E11.51) Active confirmed 321952734 Problem Moderate persistent asthma without complication (J45.40) Active confirmed 591244375 Problem 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) Active confirmed 525423956 PLAN OF TREATMENT Pending Test Test Name [...] Medicare [address] [place] [address] [phone] [id number] RADHA SPENCER Self - patient is the insured [facility] [address] [place] [address] [phone] [id number] RADHA SPENCER Self - patient is the insured MEDICAL (GENERAL) HISTORY Medical History History ICD Code Allergies Osteoarthritis Diabetes II Childhood Diabetes Hypertension Osteoporosis Sleep apnea Surgical History Surgery Date(Month/Year) Breast Biopsy 2006 Colonoscopy Coronary Bypass 2018 Echocardiogram 2009 Cholesectomy 2025 Removal of Ovary Hospitalization History Reason Date(Month/Year) Ovary Removal Gallbladder removal 2105 Coronary Bypass 2018
--- OUTSIDE RECORDS SUMMARY | 2024-09-04 07:59 | XMS_ITS ---
Author Organization [facility] Address [address] [place] [address] Care Team Providers Care Upholsterer Outside Name Role Phone MadhavBetzaida Primary Care Provider Tona Vargas [phone] REASON FOR VISIT N/S 04/08/24 Encounters Encounter Location Date [facility] [address] [place] [address] 04/08/2024 Tona Arias Plan Of Treatment No Information Progress Notes * Charity CERVANTESDOB:[birth year] (83 yo F)Acc No.[id number]:04/08/2024 Patient:?JUVENALUBALDONORAH Charity :1940???Age:83 Y???Sex:Female Address:[address] [place] [address] * true * Date:? Generated for Terrii helena/Saurav/eTransmitting on:?09/04/2024 07:59 AM EDT
--- OUTSIDE RECORDS SUMMARY | 2024-09-04 07:59 | XMS_ITS | Patient Health Record ---
Author Organization [facility] Billing Info Address [address] [place] [address] Care Team Providers Care Peanut Salter Name Role Phone Selvin Diggs Primary Care [...] Problem Status W/U Status Risk Notes Problem 313920321 Asymptomatic gallstones (K80.20) Active confirmed Plan Of Treatment No Information Insurance Providers Payer Name Payer Address Payer Phone Subscriber Number Group Number Insured Name Patient Relationship to Insured Coverage Start Date Coverage End Date [facility]GERY [facility] [address] [place], [place] [phone] [id number] Charity Douglas Self - patient is the insured 8 Medical (General) History Medical History History ICD Code gallbladder disease hypertension diabetes heart disease Surgical History Surgery Date(Month/Year) hysterectomy full 1987 Hospitalization History Reason Date(Month/Year) right side chest pain 11/20/17
[2024-09-04 08:13] VITALS: BP 136/84; PULSE 71; O2SAT 95; BMI 29.3
--- NOTE | 2024-09-04 08:13 | A.OFFPC_ITS ---
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 Accompanied by: great ava child Allergies gluten Adverse Reaction (Intermediate, Uncoded 09/04/24 08:48) Diarrhea Medication List - Last Reconciled 09/04/24 by Janna Shipley MD albuterol sulfate 90 mcg/actuation 2 puffs inhalation Q4H PRN 30 days amlodipine 5 mg PO DAILY bisoprolol fumarate 5 mg PO DAILY blood sugar diagnostic (FreeStyle Lite Strips) Use 1 strip once a day blood-glucose meter (FreeStyle Lite Meter kit) As directed cholecalciferol (vitamin D3) 25 mcg PO DAILY 90 days diclofenac sodium 1% (Arthritis Pain (diclofenac)) 2 grams topical QID famotidine 20 mg PO DAILY ferrous sulfate 325 mg PO DAILY 90 days fluticasone furoate-vilanterol 200-25 mcg/dose (Breo Ellipta) 1 ea PO DAILY fluticasone propionate 50 mcg/actuation (Flonase Allergy Relief) 2 sprays intranasal DAILY gabapentin 600 mg PO DAILY 90 days isosorbide mononitrate ER 30 mg PO DAILY lancets (FreeStyle Lancets) Use 1 lancet once a day loratadine (Allergy Relief (loratadine)) 10 mg PO DAILY losartan 25 mg PO DAILY 90 days montelukast (Singulair) 10 mg PO DAILY nitroglycerin 0.3 mg sublingual Q5M PRN 90 days rosuvastatin 20 mg PO DAILY 90 days sitagliptin phos-metformin 50-1,000 mg (Janumet) 1 tab PO BID spironolactone 25 mg PO DAILY syringe with needle (CuPcAkE & other things you bake Luer Slip Syringe-Needle) Use 1 needle once a month Tobacco use date assessed: 09/04/24 Fall risk assessment: No Falls in past year Last assessed Fall Risk: 09/04/24 Dental Screening Dental Screen Date: 06/11/24 HPI HPI Comments History of Present Illness Details The patient is an 84-year-old female presenting with issues related to diabetes, high cholesterol, asthma, and joint concerns due to osteoarthritis of the knee. Her diabetes is well managed with a recent HbA1c of 6%. There are concerns over elevated LDL cholesterol currently at 110 mg/dL. Her blood pressure is reported well controlled on multiple medications. She reports experiencing significant nocturnal chest noise with sleep disturbances, which is attributed to her asthma and potentially obstructive sleep apnea. Additionally, she reports difficulty in physical tasks such as bathing, highlighting her reduced mobility due to osteoarthritis in her knee. [facility] Surgical History H/O cardiac catheterization Hx of cholecystectomy H/O total hysterectomy Family History Mother No problems noted. Father Diabetes Sister Breast cancer Sister Breast cancer Sister Liver cancer Social History Household Members: Family Housing: Other Alcohol intake: never Patient Tobacco Use Status: Never used Tobacco e-Cigarette/Vaping Use: Never Used Second Hand Smoke Exposure: No service: No Current occupational status: disabled Cognitive needs: No Hearing needs: No Vision needs: Yes Questionnaire PHQ-9 Over the last 2 weeks, how often have you been bothered by any of the following problems? 1. Little interest or pleasure in doing things: several days 2. Feeling down, depressed, or hopeless: not at all 3. Trouble falling or staying asleep, or sleeping too much: not at all 4. Feeling tired or having little energy: not at all 5. Poor appetite or overeating: several days 6. Feeling bad about yourself - or that you are a failure or have let yourself or your family down: not at all 7. Trouble concentrating on things, such as reading the newspaper or watching television: not at all 8. Moving or speaking so slowly that other people could have noticed. Or the opposite - being so fidgety or restless that you have been moving around a lot more than usual: not at all 9. Thoughts that you would be better off or of hurting yourself in some way: not at all Total score: 2 Depression Screening Interpretation: Negative Depression Screening Done: Yes 28009 - PHQ-9 Billing: Yes Source: Developed by Drs. Kenneth Urban, KelliMandeep Franco and colleagues, with an educational sandeep from [employer]. Thrive Questionnaire Date Thrive assessed: 09/04/24 I am a: Patient What is your living situation today?: I have a steady place to live Within the past 12 months, did the food you bought not last and you didn't have the money to get more?: Never true Within the past 12 months, did you worry whether your food would run out before you got money to buy more?: Never true Do you have trouble paying for medicines?: No Do you have trouble getting transportation to medical appointments?: Yes Do you have trouble paying your heating and electricity bill?: Yes Do you have trouble taking care of your child, family member or friend?: No Do you have trouble with day-to-day activities such as bathing, preparing meals, shopping, managing finances, etc.?: Yes Are you currently unemployed and looking for a job?: No Are you interested in more education?: No Please select the resources that you would like help with: Paying for medicine, Transportation, Utilities and Care for elder or disabled Currently or been in a relationship where the following occur: No concerns reported THRIVE Score: 2 AUDIT C Alcohol Use Questionnaire (AUDIT-C) 1. How often do you have a drink containing alcohol?: Never Total Score: 0 BRADY-7 AMB Questionnaire BRADY-7 Date BRADY - 7 assessed: 09/04/24 Feeling nervous, anxious, or on edge: 0 = Not at all Not being able to stop or control worryin = Not at all Worrying too much about different things: 0 = Not at all Trouble relaxin = Not at all Being so restless that it is hard to sit still: 0 = Not at all Becoming easily annoyed or irritable: 0 = Not at all Feeling afraid as if something awful might happen: 0 = Not at all Total BRADY-7 score (0-4 normal; 5-9 mild; 10-14 moderate; 15-21 severe): 0 Source: Developed by Drs. Kenneth Urban, Mandeep Arreguin and colleagues, with an educational sandeep from [employer]. BRADY-7 Assessment Billing BRADY-7 Assessment Tool: BRADY-7 Assessment 19338 Review of Systems Const All systems reviewed & are unremarkable except as noted in HPI and below Card Denies chest pain at rest, Denies chest pain with activity, Denies edema, Denies irregular heart rhythm, Denies claudication, Denies dyspnea, Denies dyspnea on exertion, Denies orthopnea, Denies paroxysmal nocturnal dyspnea and Denies slow heart rate Resp Denies cough, Denies dyspnea and Denies dyspnea on exertion GI Denies abdominal pain, Denies change in bowel habits, Denies excessive flatus, Denies nausea and Denies vomiting Physical exam (Primary Care) Vital Signs: Last Vital Signs Pulse 71 09/04/24 08:13 BP 136/84 09/04/24 08:13 Pulse Ox 95 09/04/24 08:13 Oxygen Delivery Method Room Air 09/04/24 08:13 BMI result Body Mass Index 29.3 Tobacco/Smoking Status: Tobacco use Status Tobacco use date assessed 09/04/24 09/04/24 08:19 Patient Tobacco Use Status Never used Tobacco 09/04/24 08:14 e-Cigarette/Vaping Use Never Used 09/04/24 08:14 PHQ-9: PHQ-9 Score PHQ-9: Total score 2 09/04/24 08:52 Depression Screening Interpretation: Negative Thrive Assessment: Date of Thrive Assessment Date Thrive assessed 09/04/24 09/04/24 08:19 Currently or been in a relationship where the following occur: No concerns reported Resp Effort & Inspection: normal respiratory effort Auscultation: clear to auscultation bilaterally Cardio Jugular venous distension: no JVD Rate: regular rate Rhythm: regular rhythm Heart sounds: S1 normal heart sound present and S2 normal heart sound present Extrem General: Yes full ROM Coding Level of Care Code Est Pt Level 4 (33566) Complex EM visit Add On G2211 Diagnoses Asthma exacerbation J45.901 Bilateral primary osteoarthritis of knee M17.0 Hypercholesterolemia E78.00 Type 2 diabetes mellitus without complication, without long-term current use of insulin E11.9 Diabetes mellitus half-way insulin use: without half-way use Diabetes mellitus complication status: without complication Hypertension I10 Additional Codes BRADY-7 Assessment Billing - BRADY-7 Assessment Tool: BRADY-7 Assessment [id number] ([id number]) PHQ-9 - 32390 - PHQ-9 Billing: Yes ([id number]) Time Spent (min) 23 Assessment & Plan Assessment & Plan (1) Asthma exacerbation: Code(s): J45.901 - Unspecified asthma with (acute) exacerbation Category: Medical (2) Bilateral primary osteoarthritis of knee: Code(s): M17.0 - Bilateral primary osteoarthritis of knee Category: Medical (3) Hypercholesterolemia: Code(s): E78.00 - Pure hypercholesterolemia, unspecified Category: Medical (4) Type 2 diabetes mellitus: Code(s): E11.9 - Type 2 diabetes mellitus without complications Category: Medical Qualifiers: Diabetes mellitus half-way insulin use: without half-way use Diabetes mellitus complication status: without complication Qualified Code(s): E11.9 - Type 2 diabetes mellitus without complications (5) Hypertension: Code(s): I10 - Essential (primary) hypertension Category: Medical Plan We will adjust the patient's hyperlipidemia treatment by increasing rosuvastatin and continuing her diabetes regimen of Janumet due to consistent control of her HbA1c. A course of prednisone will aim to alleviate respiratory symptoms, with a note that it may temporarily affect blood glucose levels. Further, an antibiotic will be administered as a precaution considering her asthma history. Continued iron supplementation will support her anemia management. For her mobility challenges associated with knee osteoarthritis, a shower chair will be provided to enhance home safety. Follow-up assessments and labs are scheduled for December ahead of the next visit. Patient was informed and verbally consented to the use of an ambient scribe for clinic note documentation during this visit. I explained the significance of maintaining appropriate LDL cholesterol levels and the rationale for increasing rosuvastatin to manage hyperlipidemia effectively. We reviewed the importance of continuous diabetes management and the temporary impact prednisone may have on her glucose levels. I also discussed her need for a preventative antibiotic treatment due to respiratory complications from asthma. Regarding her knee osteoarthritis, we highlighted the functional and safety benefits of using a shower chair at home. Lastly, we coordinated plans for upcoming lab work and scheduled her next follow-up visit in December to evaluate these modifications and her ongoing care. Orders: Orders Lipid Panel 4 Months E78.5 - Hyperlipidemia, unspecified Microalbumin, Random (w Creat) 4 Months R80.9 - Proteinuria, unspecified Vitamin D 25-OH Total 4 Months E55.9 - Vitamin D deficiency, unspecified Vitamin B12 and Folate 4 Months E53.8 - Deficiency of other specified B group vitamins Complete Blood Count Auto Diff 4 Months D64.9 - Anemia, unspecified IRON PROFILE 4 Months D64.9 - Anemia, unspecified Comprehensive Gregory. Panel Fast 4 Months J45.901 - Unspecified asthma with (acute) exacerbation Medications: New Shower Chair As directed 1 ea 0RF M17.0 - Bilateral primary osteoarthritis of knee doxycycline hyclate 100 mg PO BID 10 tabs 0RF 5 days rosuvastatin 40 mg PO DAILY 90 tabs 1RF 90 days cane As directed 1 ea 0RF M17.11 - Unilateral primary osteoarthritis, right knee prednisone Take 4 tabs for 2 days, then 3 tabs for 2 days, then 2 tabs for 2 days, then 1 tab for 2 days 10 mg PO DIRECTED 20 tabs 0RF 8 days J45.901 - Unspecified asthma with (acute) exacerbation Refilled montelukast (Singulair) 10 mg PO DAILY 30 tabs 3RF Discontinued rosuvastatin Discontinued Reason: Patient Completed Course 20 mg PO DAILY 90 days 90 tabs 1RF Patient Instructions: - Continue current diabetes medication. - Increase rosuvastatin to 40 mg daily for cholesterol management. - Take prednisone for prescribed duration and be aware of a potential temporary increase in blood sugar. - Complete the prescribed antibiotic course. - Use the shower chair as needed for safety in the bathroom. - Follow up in December with planned lab work. - Report any worsening respiratory symptoms immediately. - Maintain iron supplementation as advised.
== END 2024-09-04 08:57 | disposition home or self-care (01) ==
LOC: HO.HMCH 07:57
PROVIDERS: PCP Internal Medicine; Visit Provider Internal Medicine
DX: J45.901 Unspecified asthma with (acute) exacerbation (principal); M17.0 Bilateral primary osteoarthritis of knee; E78.00 Pure hypercholesterolemia, unspecified; E11.9 Type 2 diabetes mellitus without complications; I10 Essential (primary) hypertension

== ENCOUNTER → 2024-09-04 07:56 | Outpatient (BNVA) | payer MEDICARE, SELFPAY | PROVIDERS: PCP Internal Medicine; Visit Provider Internal Medicine | DX: J45.901 Unspecified asthma with (acute) exacerbation (principal); M17.0 Bilateral primary osteoarthritis of knee; E78.00 Pure hypercholesterolemia, unspecified; E11.9 Type 2 diabetes mellitus without complications; I10 Essential (primary) hypertension | CPT/HCPCS: 96127; 99212 ==

== ENCOUNTER 2024-11-17 11:04 | Emergency (ER) | payer MEDICARE, MEDICAID, OTHER, SELFPAY ==
--- NOTE | ~2024-11-17 | CT_ITS ---
CLINICAL HISTORY: RENDON s p head injury CT cervical spine without intravenous contrast Comparison: None Findings: Craniocervical junction: No occipital condylar fractures. No evidence of atlantooccipital dissociation. The anterior and posterior arch and lateral masses of C1 are intact. Odontoid and atlanto-dental interval intact. The pars interarticularis of C2 is intact. There is normal vertebral body heights with no evidence of compression fracture. Mild degenerative spondylolisthesis C3-4. No locked or perched facets. No spinous process fractures. Lordotic curvature is preserved. The retropharyngeal soft tissues are not widened. Segmental analysis as below (MR is more accurate in the evaluation of disc herniation and central canal pathology): C2-C3: No herniation or stenosis. C3-C4: Uncovertebral body spurs and degenerative facet hypertrophy bilaterally C4-C5: Uncovertebral body spurs and degenerative facet hypertrophy bilaterally C5-C6: Uncovertebral body spurs and degenerative facet hypertrophy C6-C7: Uncovertebral body spurs C7-T1: Uncovertebral body spurs The bones are without evidence of lytic or blastic lesion. Lung apices are unremarkable. Impression: 1. Negative CT cervical spine for acute process. This document has been electronically signed by: Bubba Shukla MD on 11/17/2024 13:15:16
--- NOTE | ~2024-11-17 | CT_ITS ---
CLINICAL HISTORY: headache s p head injury CT of the head without intravenous contrast Comparison: None Findings: The ventricles and sulci are prominent, consistent with generalized cerebral parenchymal volume loss. The ventricles are symmetric and the basilar cisterns are intact. Mild periventricular, deep and subcortical white matter hypodensities are nonspecific but statistically reflect the sequela of chronic small vessel ischemic change. No intracranial hemorrhage, extra-axial fluid collection, midline shift or mass-effect is evident. No evidence of acute large vessel or territorial ischemia. Brainstem and cerebellum unremarkable. Vascular calcifications indicate intracranial atherosclerosis. The imaged portion of the paranasal sinuses are clear. No mastoid effusions are demonstrated. The orbital contents are unremarkable. Calvarium is intact. Impression: 1. No CT evidence of acute intracranial abnormality. 2. Cerebral volume loss, intracranial atherosclerotic disease and mild sequela of chronic small vessel ischemic disease. This document has been electronically signed by: Bubba Shukla MD on 11/17/2024 13:19:47
[2024-11-17 11:17] VITALS: BP 186/69; PULSE 68; RESP 16; TEMP 36.3; O2SAT 98; BMI 35.2
--- NOTE | 2024-11-17 11:19 | ED.GENADULT ---
HPI - General Adult General Chief complaint: General Medical Stated complaint: depression, fell on monday front of head hurts Time Seen by Provider: 11/17/24 11:42 Source: patient Mode of arrival: ambulatory Limitations: no limitations History of Present Illness ED Provider: garret sharif np HPI narrative: Patient is an 84-year-old female who presents emergency department with granddaughter for evaluation. Evidently about 6 days ago she had a slip and fall out of a chair after she had fallen asleep. She presented to an urgent care and was evaluated for foot pain had x-rays done there was no evidence of fracture. She had associated head strike but no use of anticoagulants. When asked, she states that her headache stated yesterday. She actually attributes this to high blood pressure. It seems as though in the recent past she was taking losartan 100 mg, isosorbide 30 mg and bisoprolol 5 mg, was having issues removed the low blood pressure 90s/50s, reports that approximately 3-4 weeks ago her primary care doctor had decreased the losartan to 25 mg. However, at some point since then she got a refill of the losartan from the pharmacy which again was dosed at 100 mg and she has been taking this. Over the past week she has noted that her blood pressure readings has been more elevated 140-1 60s/70s. She arrived today to emergency department 186/69. She reports it is very common for her to have a headache when her blood pressures this elevated. She denies any additional fall or injury. Denies any red flag symptoms including fevers, chills, neck stiffness, malaise, aphasia, weakness, poor coordination, descriptors such as ?the worst headache ever ?or ?thunderclap?, or painful temporal region. Denies dizziness, lightheadedness, vision changes, URI symptoms, chest pain, shortness of breath, numbness or tingling of the extremities. Related Data Home Medications ?Medication ?Instructions ?Recorded ?Confirmed famotidine 20 mg tablet 20 mg PO DAILY 07/26/23 09/04/24 amlodipine 5 mg tablet 5 mg PO DAILY 08/21/24 09/04/24 Previous Rx's ?Medication ?Instructions ?Recorded fluticasone propionate 50 2 spray intranasal DAILY #16 grams 07/27/23 mcg/actuation nasal spray,suspension (Flonase Allergy Relief) diclofenac sodium 1 % topical gel 2 g topical QID #100 grams 08/30/23 (Arthritis Pain (diclofenac)) albuterol sulfate 90 mcg/actuation 2 puff inhalation Q4H PRN 10/30/23 aerosol inhaler shortness of breath or wheezing 30 days #1 ea blood sugar diagnostic (FreeStyle #100 ea 01/15/24 Lite Strips) blood-glucose meter (FreeStyle #1 ea 01/15/24 Lite Meter kit) lancets 28 gauge (FreeStyle #100 ea 01/15/24 Lancets) spironolactone 25 mg tablet 25 mg PO DAILY #30 tabs 01/15/24 syringe with needle 1 mL 25 gauge #1 ea 01/15/24 x 5/8 (Unirisx Luer Slip Syringe-Needle) fluticasone furoate 200 1 ea PO DAILY #60 ea 02/13/24 mcg-vilanterol 25 mcg/dose inhalation powder (Breo Ellipta) cholecalciferol (vitamin D3) 25 25 mcg PO DAILY 90 days #90 caps 06/19/24 mcg (1,000 unit) capsule loratadine 10 mg tablet (Allergy 10 mg PO DAILY #30 tabs 06/19/24 Relief (loratadine)) isosorbide mononitrate 30 mg 30 mg PO DAILY #30 tabs 08/29/24 tablet,extended release 24 hr nitroglycerin 0.3 mg sublingual 0.3 mg sublingual Q5M PRN chest 09/01/24 tablet pain 90 days #10 tabs ferrous sulfate 325 mg (65 mg 325 mg PO DAILY 90 days #90 tabs 09/02/24 iron) tablet Shower Chair #1 ea 09/04/24 cane #1 ea 09/04/24 doxycycline hyclate 100 mg tablet 100 mg PO BID 5 days #10 tabs 09/04/24 montelukast 10 mg tablet 10 mg PO DAILY #30 tabs 09/04/24 (Singulair) prednisone 10 mg tablet 10 mg PO DIRECTED 8 days #20 09/04/24 tabs rosuvastatin 40 mg tablet 40 mg PO DAILY 90 days #90 tabs 09/04/24 bisoprolol fumarate 5 mg tablet 5 mg PO DAILY #90 tabs 09/13/24 sitagliptin phosphate 50 1 tab PO BID #180 tabs 10/06/24 mg-metformin 1,000 mg tablet (Janumet) gabapentin 600 mg tablet 600 mg PO DAILY 90 days #90 tabs 10/07/24 losartan 25 mg tablet 25 mg PO DAILY 90 days #90 tabs 10/28/24 Allergies Allergy/AdvReac Type Severity Reaction Status Date / Time gluten AdvReac Intermediate Diarrhea Uncoded 11/17/24 11:22 Review of Systems Review of Systems: Yes all other systems are reviewed and are negative PMFSH Past Medical History Attestation statement: The following information was validated with the patient. Source: old records reviewed Surgical History H/O cardiac catheterization Hx of cholecystectomy H/O total hysterectomy Family History Family History Mother No problems noted. Father Diabetes Sister Breast cancer Sister Breast cancer Sister Liver cancer Social History Social History Household Members: Family Housing: Other Alcohol intake: never Patient Tobacco Use Status: Never used Tobacco e-Cigarette/Vaping Use: Never Used Second Hand Smoke Exposure: No Advance Directives: No Advance Directives Information Provided: Yes Do you have a plan to hurt others: No Plan service: No Current occupational status: disabled Cognitive needs: No Hearing needs: No Vision needs: Yes Physical Exam ED Exam Exam: Appearance: Alert.?Oriented to person, place and time. No acute distress.?Normal affect. Head: Normocephalic Eyes: Pupils equal, round and reactive to light. EOMI. Conjunctiva and sclera normal? No Francis sign noted. No raccoon eyes noted ENT: No septal hematoma, nares patent bilaterally. External auditory canal normal tympanic membrane pearly lomax and intact bilaterally. Dentition normal, no fractured teeth. No lesions or lacerations of oropharynx. Uvula midline. Moist mucous membranes. Neck: Normal inspection.? Neck supple.??No palpable tenderness, step-off, deformities. CVS: Heart sounds normal. Normal heart rate and rhythm.? Pulses normal.?? Respiratory: No respiratory distress.? Lung sounds clear to auscultation bilaterally?? Abdomen: Soft and non-tender. Normoactive bowel sounds. ?? Skin: Skin warm and dry.? Normal skin color.? Normal skin turgor.?? Extremities: No lower extremity edema.? Neuro: Moves all extremities spontaneously. Sensation intact bilaterally. CN II-XII intact. No focal neuro deficits. 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 Deferred additional HPI, ROS, PE to primary provider. 84 yo female with PMH of DM, asthma, HTN here with complaints of fall on Monday with fall out of chair. States I fell asleep. Had head strike. No LOC. Also injured right foot. Went to with reportedly negative x-rays. Placed in boot. Concerned today with head strike, headache and elevated BP despite taking her medication this morning. NO AC therapy. Will obtain CT head/CT cervical spine. HTN in triage. Other VS normal. Medications Administered Discontinued Medications Generic Name Dose Route Start Last Admin Trade Name Freq PRN Reason Stop Dose Admin Bisoprolol Fumarate 5 mg 11/17/24 14:17 11/17/24 15:33 Bisoprolol Fumarate 5 Mg Tablet PO 11/17/24 14:18 5 mg ONCE ONE Administration Medical Decision Making Medical Decision Making [facility] Narrative: Patient is an 79 year old female with past medical history of diabetes, hypercholesterolemia, asthma, osteoarthritis who presents emergency department with granddaughter for evaluation, primary concern is a headache which started yesterday, preceding fall 5 days prior no use of anticoagulants. Has no focal neurological deficits on evaluation. A CT scan of her head and cervical spine was obtained prior to my assumption of care and is without evidence of ICH, SDH, skull fracture, cervical spine fracture subluxation. Headache is diffuse, she states she has experienced similar in the past due to hypertension, she does present in extensive today. Reports her headache is mild 2/10 will provide her with an additional dose of her bisoprolol while in the emergency department and not in any evaluation. No nuchal rigidity, do not suspect meningitis, no recent URI symptoms. Patient reporting resolution of her headache, feeling hungry would like to be discharged home at this time. She is ambulatory with a steady gait, no focal neurological deficits. She reports that she will follow up with her primary care doctor, hesitant to make any changes to her blood pressure medications given recent hypotension. I feel this is reasonable at this time. Discussed worrisome signs and symptoms that would warrant re-evaluation in the emergency department. All questions answered. 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 Radiologist Impression: CT cervical spine without intravenous contrast Comparison: None Findings: Craniocervical junction: No occipital condylar fractures. No evidence of atlantooccipital dissociation. The anterior and posterior arch and lateral masses of C1 are intact. Odontoid and atlanto-dental interval intact. The pars interarticularis of C2 is intact. There is normal vertebral body heights with no evidence of compression fracture. Mild degenerative spondylolisthesis C3-4. No locked or perched facets. No spinous process fractures. Lordotic curvature is preserved. The retropharyngeal soft tissues are not widened. Segmental analysis as below (MR is more accurate in the evaluation of disc herniation and central canal pathology): C2-C3: No herniation or stenosis. C3-C4: Uncovertebral body spurs and degenerative facet hypertrophy bilaterally C4-C5: Uncovertebral body spurs and degenerative facet hypertrophy bilaterally C5-C6: Uncovertebral body spurs and degenerative facet hypertrophy C6-C7: Uncovertebral body spurs C7-T1: Uncovertebral body spurs The bones are without evidence of lytic or blastic lesion. Lung apices are unremarkable. Impression: 1. Negative CT cervical spine for acute process. CT of the head without intravenous contrast Comparison: None Findings: The ventricles and sulci are prominent, consistent with generalized cerebral parenchymal volume loss. The ventricles are symmetric and the basilar cisterns are intact. Mild periventricular, deep and subcortical white matter hypodensities are nonspecific but statistically reflect the sequela of chronic small vessel ischemic change. No intracranial hemorrhage, extra-axial fluid collection, midline shift or mass-effect is evident. No evidence of acute large vessel or territorial ischemia. Brainstem and cerebellum unremarkable. Vascular calcifications indicate intracranial atherosclerosis. The imaged portion of the paranasal sinuses are clear. No mastoid effusions are demonstrated. The orbital contents are unremarkable. Calvarium is intact. Impression: 1. No CT evidence of acute intracranial abnormality. 2. Cerebral volume loss, intracranial atherosclerotic disease and mild sequela of chronic small vessel ischemic disease. Independent Historian Clinical information obtained from an independent historian. History obtained from or confirmed by: Other (Granddaughter) External Record Review External record reviewed: Outpatient record Prescription Management I considered prescription management with: Other (See narrative above) Chronic Conditions Patient?s care impacted by: Other (See narrative above) Discharge Plan Discharge Clinical Impression: Hypertension, Headache Patient Disposition: Home, Self-Care Instructions: Acute Headache (ED), Chronic Hypertension (ED) Additional Instructions: You can take Tylenol 500 mg, 2 tablets (1,000mg) every 4-6 hours as needed for pain, but not to exceed 3 doses daily (3,000mg).? Please discuss your blood pressure with your primary care doctor, you did state that they have been increasing again over the past week, however previously you are having low blood pressure readings, they will discuss with you changes at their discretion to your antihypertensive regimen. Return back to emergency department any new or worsening symptoms or concerns which include but is not limited to severe worsening headache, dizziness, lightheadedness, chest pain, difficulty breathing, numbness or tingling of the extremities, confusion, weakness, slurred speech, facial drooping. Prescriptions: No Action albuterol sulfate 90 mcg/actuation HFA aerosol inhaler 2 puff inhalation Q4H PRN (Reason: shortness of breath or wheezing) 30 Days Qty: 1 6RF fluticasone furoate-vilanterol [Breo Ellipta] 200-25 mcg/dose blister with device 1 ea PO DAILY Qty: 60 0RF cholecalciferol (vitamin D3) 25 mcg (1,000 unit) capsule 25 mcg PO DAILY 90 Days Qty: 90 0RF loratadine [Allergy Relief (loratadine)] 10 mg tablet 10 mg PO DAILY Qty: 30 3RF isosorbide mononitrate 30 mg tablet extended release 24 hr 30 mg PO DAILY Qty: 30 3RF nitroglycerin 0.3 mg tablet, sublingual 0.3 mg sublingual Q5M PRN (Reason: chest pain) 90 Days Qty: 10 1RF Rx Instructions: do not exceed 3 doses per episode ferrous sulfate 325 mg (65 mg iron) tablet 325 mg PO DAILY 90 Days Qty: 90 1RF bisoprolol fumarate 5 mg tablet 5 mg PO DAILY Qty: 90 0RF Janumet 50-1,000 mg tablet 1 tab PO BID Qty: 180 1RF gabapentin 600 mg tablet 600 mg PO DAILY 90 Days Qty: 90 1RF losartan 25 mg tablet 25 mg PO DAILY 90 Days Qty: 90 1RF diclofenac sodium [Arthritis Pain (diclofenac)] 1 % gel 2 g topical QID Qty: 100 0RF Rx Instructions: apply to single elbow, wrist or hand; for hand includes palm/fingers/back of hand fluticasone propionate [Flonase Allergy Relief] 50 mcg/actuation spray,suspension 2 spray intranasal DAILY Qty: 16 0RF Rx Instructions: administer into each nostril spironolactone 25 mg tablet 25 mg PO DAILY Qty: 30 3RF (DME) [facility] Luer Slip Syring-Ndl 1 mL 25 gauge x 5/8 syringe See Rx Instructions .Route Qty: 1 6RF Rx Instructions: Use 1 needle once a month (DME) blood-glucose meter [FreeStyle Lite Meter] Kit See Rx Instructions .Route Qty: 1 0RF Rx Instructions: As directed (DME) FreeStyle Lite Strips Strip See Rx Instructions .Route Qty: 100 3RF Rx Instructions: Use 1 strip once a day (DME) lancets [FreeStyle Lancets] 28 gauge misc See Rx Instructions .Route Qty: 100 3RF Rx Instructions: Use 1 lancet once a day montelukast [Singulair] 10 mg tablet 10 mg PO DAILY Qty: 30 3RF rosuvastatin 40 mg tablet 40 mg PO DAILY 90 Days Qty: 90 1RF (DME) cane Device See Rx Instructions .Route Qty: 1 0RF Rx Instructions: As directed (DME) Shower Chair Misc See Rx Instructions .Route Qty: 1 0RF Rx Instructions: As directed prednisone 10 mg tablet 10 mg PO DIRECTED 8 Days Qty: 20 0RF Rx Instructions: Take 4 tabs for 2 days, then 3 tabs for 2 days, then 2 tabs for 2 days, then 1 tab for 2 days doxycycline hyclate 100 mg tablet 100 mg PO BID 5 Days Qty: 10 0RF famotidine 20 mg tablet 20 mg PO DAILY amlodipine 5 mg tablet 5 mg PO DAILY Referrals: Janna Espinoza MD [Primary Care Provider, Internal Medicine] Interventions: ED Discharge Assessment Last Done: 11/17/24 16:48 Discharge Date/Time: 11/17/24 17:01 Print Language: Anguillan
[2024-11-17 12:30] VITALS: BP 195/60; PULSE 73; RESP 14; TEMP 36.1; O2SAT 98
[2024-11-17 14:13] VITALS: BP 173/75; PULSE 69; RESP 20; TEMP 36.1; O2SAT 96
[2024-11-17 16:26] VITALS: BP 185/72
[2024-11-17 16:48] VITALS: BP 168/56; PULSE 76; RESP 16; TEMP 36.6; O2SAT 95
== END 2024-11-17 17:01 | disposition home or self-care (01) ==
PROVIDERS: Emergency Provider Emergency Medicine; PCP Internal Medicine
DX: F33.1 Major depressive disorder, recurrent, moderate (principal); R51.0 Headache with orthostatic component, not elsewhere classified; M54.2 Cervicalgia; I10 Essential (primary) hypertension; Z79.899 Other long term (current) drug therapy
CPT/HCPCS: 70450; 72125; 99283; 99284

== ENCOUNTER → 2024-11-17 11:23 | Outpatient (BNV) | payer MEDICARE, MEDICAID, SELFPAY | PROVIDERS: PCP Internal Medicine; Visit Provider Radiology Diagnostic Radiology | DX: M47.812 Spondylosis without myelopathy or radiculopathy, cervical region (principal); G44.309 Post-traumatic headache, unspecified, not intractable | CPT/HCPCS: 70450; 72125 ==

== ENCOUNTER 2024-12-03 10:45 | Outpatient (AMB) | payer MEDICARE, MEDICAID, SELFPAY ==
--- OUTSIDE RECORDS SUMMARY | 2024-04-08 07:30 | XMS_ITS ---
Author Organization [facility] Address [address] [place] [address] Care Team Providers Care Circus Supervisor Name Role Phone Betzaida Corey Primary Care Provider Tona Vargas [phone] Encounters Encounter Location Date Provider Diagnosis [facility] [address] [place] [address] 04/08/2024 Tona Arias Plan Of Treatment No Information Progress Notes * Charity CERVANTESDOB:[birth year] (84 yo F)Acc No.[id number]:04/08/2024 Progress Note Patient: Kinsey HERNANDEZz Provider: Gwendolyn Arias DPM :1940 A ge:83 Y S ex:Female Date:04/08/2024 Address:[address] [place], [place] [id number] Pcp:Betzaida Corey Subjective: * Chief Complaints: * * Medical History: Objective: * Vitals: Assessment: Plan: * Treatment: * Images: * The named appointment provid er may or may not be the originator of this progress note, and it is not deemed complete until electronically signed by the appointment provider. Sign off status: Pending * Provider: Gwendolyn Arias DPM Date: 1 06/09/2023 Generated for Terrii ng/Fayoug/eTransmitting on: 0 12/03/2024 11:29 AM EDT
--- NOTE | 2024-12-03 10:59 | HO.NEPHOV ---
Vital Signs 12/03/24 11:05 Height 4 ft 11 in Weight 167 lb 6 oz BMI 33.8 BP 130/70 Blood Pressure Location Lt brachial Position Sitting Pulse 72 Pulse Source Pulse Oximeter Pulse Oximetry (%) 96 Oxygen Delivery Method Room Air Intake Visit Reasons: INP:Acute kidney failure, unspecified-Conf Customer Counter Associate Required: Yes Customer Counter Associate Language: Temporary Administrative Assistant Services: Customer Counter Associate Present Customer Counter Associate Name: Rosemary [id number] Information Interpreted: clinical only Accompanied by: Other Relationship Allergies gluten Adverse Reaction (Intermediate, Uncoded 11/17/24 11:22) Diarrhea HPI Comments Details: 84-year-old lady with past medical history of diabetes mellitus, hypertension, hyperlipidemia, osteoma, osteoarthritis of knee is here to establish care. French interpretor Rosemary. Here with great granddaughter Constanza. Diabetes mellitus: Well controlled HbA1c 6.0 in 06/2024, on sitagliptin metformin Hypertension: On losartan 100 mg, isosorbide mononitrate 30 mg daily, amlodipine 5 mg daily, bisoprolol 5 Osteoarthritis: PFSH Surgical History H/O cardiac catheterization Hx of cholecystectomy H/O total hysterectomy Family History Mother No problems noted. Father Diabetes Sister Breast cancer Sister Breast cancer Sister Liver cancer Social History Household Members: Family Housing: Other Alcohol intake: never Patient Tobacco Use Status: Never used Tobacco e-Cigarette/Vaping Use: Never Used Second Hand Smoke Exposure: No service: No Current occupational status: disabled Cognitive needs: No Hearing needs: No Vision needs: Yes Review of Systems Const Details: Const Denies body aches, Denies chills, Denies excessive sweating Eyes Denies blurry vision and Denies change in vision ENT Denies bleeding gums and Denies change in voice Card Denies chest pain and Denies leg ulcers Resp Denies cough and Denies excessive phlegm production GI Denies abdominal pain and Denies bloating Denies hematuria, Denies urinary frequency and Denies difficulty voiding Musc Denies abnormal gait Neuro Denies Neuro-related abnormal movements,mild abnormal gait and no behavioral changes Psych Denies behavioral changes and Denies change in appetite Endo Denies change in body appearance, Denies cold intolerance, Denies excessive sweating and Denies fatigue Physical Exam General: very pleasant elderly lady with a cute smile not in any acute distress, comfortable, sitting on the chair Nutritional Appearance: well nourished and overweight Eyes: appearance normal, both eyes and all related structures; Alignment and Position: alignment normal and position normal Neck: No lymphadenopathy, no thyromegaly Resp: bilateral air entry equal, bibasilar crackles heard, bilateral wheeze heard. Cardio: Regular rate, regular rhythm; Heart sounds: S1 normal heart sound present and S2 normal heart sound present, +edema GI: soft, nontender, no guarding, no hepatosplenomegaly : bladder normal to inspection, bladder normal to palpation, no renal angle tenderness Skin: no rashes or lesions noted and elasticity normal Neuro: oriented to person, oriented to place, oriented to time and moves all extremities Results Reviewed Nephrology Results: Hgb, (12.0-16.0) 11.0 g/dl L 08/21/24 WBC, (4.8-10.8) 5.4 X10*3/uL 08/21/24 Plt Count, (160-400) 197 X10*3/uL 08/21/24 Sodium, (135-145) 140 mmol/L 08/21/24 Potassium, (3.3-5.1) 4.6 mmol/L 08/21/24 Chloride, (96-108) 107 mmol/L 08/21/24 Carbon Dioxide, (22-29) 24 mmol/L 08/21/24 BUN, (9-16) 26 mg/dL H 08/21/24 Creatinine, (0.5-1.4) 1.05 mg/dL 08/21/24 Calcium, (8.4-10.2) 9.3 mg/dL 08/21/24 Urine Creatinine 104.99 mg/dL 08/21/24 Renal US 08/09/23 Assessment & Plan Assessment & Plan (1) Chronic kidney disease: Code(s): N18.9 - Chronic kidney disease, unspecified Category: Medical (2) Acute kidney injury: Code(s): N17.9 - Acute kidney failure, unspecified Category: Medical (3) Anemia, pernicious: Code(s): D51.0 - Vitamin B12 deficiency anemia due to intrinsic factor deficiency Category: Medical (4) Hypertension: Code(s): I10 - Essential (primary) hypertension Category: Medical Plan Chronic kidney disease stage IIIA2: possibly secondary to long standing DM and atherosclerotic vascuclar disease from HTN - no family history of CKD, no history of renal stones in the past, NSAID use. - creatinine 1.05 , GFR 50 increased 1.3 and BUN 21 at [facility] October 24, 2024 when she went to emergency room for very high blood pressures. - urine albumin creatinine ratio: 52.3 - will get Urinalysis - avoid nephrotoxic medications not limited to NSAIDs, contrast etc. - importance of diet, weight loss, adequate blood pressure control, stopped smoking we will explained to patient - will get hepatitis panel, HIV, RORY, ANCA, complements, SPEP, UPEP, serum free light chains, PLA2R Hypertension: - target blood pressures less than 130/90 mm Hg - compliance: good - On losartan 100 mg, isosorbide mononitrate 30 mg daily, amlodipine 5 mg daily, bisoprolol 5 as she has history of CAD. - will discontinue amlodipine as she has lower extremity swelling and doesnt have a compelling indication - has bibasilar crackles and lower extremity swelling, has symptoms of PND, orthopnea uses upto 3 pillows to sleep. Will add lasix 40mg twice daily morning and afternoon, once the swelling decrease the dose to once daily. She will and see her back with Lynda Ibarra [employer] in 2 weeks, to check her renal function, blood pressure and fluid status if she needs any changes. Anemia: - hemoglobin 11 - Iron profile normal in July 2024 Mineral bone disease: - normal calcium, vitamin-D Total time spent in the clinic is about 40 minutes, 10 minutes on chart review, review of data, 20 minutes on encounter, physical examination, counseling, answering all the questions, 10 minutes on documentation. Orders: Orders CA echo transthoracic complete Today I25.10 - Atherosclerotic heart disease of [place] coronary artery without angina pectoris Basic Metabolic Panel 1 Week E11.9 - Type 2 diabetes mellitus without complications, N17.9 - Acute kidney failure, unspecified UA and rflx microscopic 1 Week E11.9 - Type 2 diabetes mellitus without complications, N17.9 - Acute kidney failure, unspecified Total Protein Urine Random 1 Week E11.9 - Type 2 diabetes mellitus without complications, N17.9 - Acute kidney failure, unspecified Hepatitis B,C Profile 1 Week E11.9 - Type 2 diabetes mellitus without complications, N17.9 - Acute kidney failure, unspecified HIV Ab/Ag 1 Week E11.9 - Type 2 diabetes mellitus without complications, N17.9 - Acute kidney failure, unspecified Whittlesey/Lambda Light Chain Serum 1 Week E11.9 - Type 2 diabetes mellitus without complications, N17.9 - Acute kidney failure, unspecified Complement C3 1 Week E11.9 - Type 2 diabetes mellitus without complications, N17.9 - Acute kidney failure, unspecified UA and rflx microscopic 2 Months E66.3 - Overweight, N17.9 - Acute kidney failure, unspecified Microalbumin, Random (w Creat) 1 Week E11.9 - Type 2 diabetes mellitus without complications, N17.9 - Acute kidney failure, unspecified Complete Blood Count no Diff 1 Week E11.9 - Type 2 diabetes mellitus without complications, N17.9 - Acute kidney failure, unspecified RORY Reflex Titer and Pattern 1 Week E11.9 - Type 2 diabetes mellitus without complications, N17.9 - Acute kidney failure, unspecified ANCA Vasculitides 1 Week E11.9 - Type 2 diabetes mellitus without complications, N17.9 - Acute kidney failure, unspecified Protein Electrophoresis,Ran Ur 1 Week E11.9 - Type 2 diabetes mellitus without complications, N17.9 - Acute kidney failure, unspecified Protein Electrophoresis, Serum 1 Week E11.9 - Type 2 diabetes mellitus without complications, N17.9 - Acute kidney failure, unspecified Complement C4 1 Week E11.9 - Type 2 diabetes mellitus without complications, N17.9 - Acute kidney failure, unspecified Basic Metabolic Panel 2 Months E66.3 - Overweight, N17.9 - Acute kidney failure, unspecified Complete Blood Count no Diff 2 Months E66.3 - Overweight, N17.9 - Acute kidney failure, unspecified Medications: New furosemide (Lasix) 8AM and 2 PM. Decrease the dose to 40mg once the swelling and sleep is better. 40 mg PO BID PRN 30 tabs 0RF edema Coding Level of Care Code New Pt Level 5 (58905) Diagnoses Chronic kidney disease N18.9 Acute kidney injury N17.9 Anemia, pernicious D51.0 Hypertension I10
[2024-12-03 11:05] VITALS: BP 130/70; PULSE 72; O2SAT 96; BMI 33.8
--- OUTSIDE RECORDS SUMMARY | 2024-12-03 11:29 | XMS_ITS | Patient Health Record ---
Author Organization [facility] Billing Info Address [address] [place] [id number] Care Team Providers Care Pencil Maker Name Role Phone Selvin Diggs Primary Care [...] Problem Status W/U Status Risk Notes Problem [id number] Asymptomatic gallstones (K80.20) Active confirmed Plan Of Treatment No Information Insurance Providers Payer Name Payer Address Payer Phone Subscriber Number Group Number Insured Name Patient Relationship to Insured Coverage Start Date Coverage End Date SURGERY [facility] [address] [place], [place] [id number] Charity Douglas Self - patient is the insured 8 Medical (General) History Medical History History ICD Code gallbladder disease hypertension diabetes heart disease Surgical History Surgery Date(Month/Year) hysterectomy full 1987 Hospitalization History Reason Date(Month/Year) right side chest pain 11/20/17
== END 2024-12-03 11:51 | disposition home or self-care (01) ==
LOC: HO.HKAS 10:46
PROVIDERS: PCP Internal Medicine; Referring Provider Internal Medicine; Visit Provider Internal Medicine Critical Care Medicine
DX: I12.9 Hypertensive chronic kidney disease with stage 1 through stage 4 chronic kidney disease, or unspecified chronic kidney disease (principal); N18.9 Chronic kidney disease, unspecified; N17.9 Acute kidney failure, unspecified; D51.0 Vitamin B12 deficiency anemia due to intrinsic factor deficiency
CPT/HCPCS: 99204

== ENCOUNTER → 2024-12-03 10:45 | Outpatient (BNVA) | payer MEDICARE, MEDICAID, SELFPAY | PROVIDERS: PCP Internal Medicine; Referring Provider Internal Medicine; Visit Provider Internal Medicine Critical Care Medicine | DX: E11.22 Type 2 diabetes mellitus with diabetic chronic kidney disease (principal); I12.9 Hypertensive chronic kidney disease with stage 1 through stage 4 chronic kidney disease, or unspecified chronic kidney disease; N18.31 Chronic kidney disease, stage 3a; D51.0 Vitamin B12 deficiency anemia due to intrinsic factor deficiency; N17.9 Acute kidney failure, unspecified | CPT/HCPCS: 99202 ==

== ENCOUNTER 2024-12-20 09:06 | Outpatient (REF) | payer MEDICARE, MEDICAID, SELFPAY ==
--- OUTSIDE RECORDS SUMMARY | 2024-04-08 07:30 | XMS_ITS ---
Author Organization [facility] Address [address] [place] [address] Care Team Providers Care Alignment Specialist Name Role Phone Betzaida Corey Primary Care Provider Tona Vargas [phone] Encounters Encounter Location Date Provider Diagnosis [facility] [address] [place] [address] 04/08/2024 Tona Arias Plan Of Treatment No Information Progress Notes * Charity CERVANTESDOB:[birth year] (84 yo F)Acc No.[id number]:04/08/2024 Progress Note Patient: Kinsey HERNANDEZz Provider: Gwendolyn Arias DPM :1940 A ge:83 Y S ex:Female Date:04/08/2024 Address:[address] [place], [place] [id number] Pcp:Betzaida Corey Subjective: * Chief Complaints: * * Medical History: Objective: * Vitals: Assessment: Plan: * Treatment: * Images: * The named appointment provid er may or may not be the originator of this progress note, and it is not deemed complete until electronically signed by the appointment provider. Sign off status: Pending * Provider: Gwendolyn Arias DPM Date: 1 06/09/2023 Generated for Printi ng/Fayoug/eTransmitting on: 0 12/20/2024 09:16 AM EDT
--- OUTSIDE RECORDS SUMMARY | 2024-12-20 09:16 | XMS_ITS | Patient Health Record ---
Author Organization [facility] Billing Info Address [address] [place] [address] Care Team Providers Care Bullard Machine Operator Name Role Phone Selvin Diggs Primary Care [...] Problem Status W/U Status Risk Notes Problem [id number] Asymptomatic gallstones (K80.20) Active confirmed Plan Of Treatment No Information Insurance Providers Payer Name Payer Address Payer Phone Subscriber Number Group Number Insured Name Patient Relationship to Insured Coverage Start Date Coverage End Date SURGERY [facility] [address] [place], [place] [id number] Charity Douglas Self - patient is the insured 8 Medical (General) History Medical History History ICD Code gallbladder disease hypertension diabetes heart disease Surgical History Surgery Date(Month/Year) hysterectomy full 1987 Hospitalization History Reason Date(Month/Year) right side chest pain 11/20/17
[2024-12-20 09:54] LABS: Hematocrit 34.5 % (37.0-47.0); Hemoglobin 11.3 g/dl (12.0-16.0); Mean Corpuscular HGB Conc 32.8 g/dl (31.0-35.0); Mean Corpuscular Hemoglobin 30.8 pg (27.0-33.0); Mean Corpuscular Volume 94.0 fL (80.0-98.0); NRBC Abs Auto 0.000 X10*3/uL (0.0-0.012); NRBC Pct Auto 0.0 /100WBC (0.0-0.2); Platelet Count 181 X10*3/uL (160-400); Red Blood Count 3.67 X10*6/uL (4.20-5.50); White Blood Count 5.1 X10*3/uL (4.8-10.8)
[2024-12-20 10:19] LABS: Anion Gap 13 (12-20); Blood Urea Nitrogen 25 mg/dL (9-16); Calcium 9.5 mg/dL (8.4-10.2); Carbon Dioxide 31 mmol/L (22-29); Chloride 104 mmol/L (96-108); Estimated Glomerular Filt Rate 34; Potassium 4.6 mmol/L (3.3-5.1); Sodium 143 mmol/L (135-145)
[2024-12-20 10:45] LABS: Appearance Urine Clear; Glucose Urine UA Negative (Negative); PH 7.0 (5.0-9.0); Specific Gravity - Urine 1.015 (1.005-1.025); UMIC TRIGGER UA YES
[2024-12-20 11:43] LABS: Microalbum/Creatinine Ratio Ur 20.1 ug/mg cr (<30); Total Protein Urine Random 15 mg/dL (<12)
[2024-12-21 08:30] LABS: HBS Num1 1.26 mIU/mL (0-7.99); HBc Num1 0.11 S/CO (0.00-0.79); HBsAGNum1 0.39 S/CO (0.00-0.99); HIV Num 1 0.06 S/CO (0.00-0.99); Hepatitis B Surface Antigen Negative (Negative); ~HepC Num1 0.13 S/CO (0.00-0.79); ~Hepatitis B Surface Antibody NONREACTIVE (Nonreactive); ~Hepatitis C Antibody Nonreactive (Nonreactive)
[2024-12-23 15:38] LABS: Proteinase 3 PR3 Antibodies <1.0 AI
[2024-12-24 09:39] LABS: PEU-Protein Creat Ratio Rand 0.171 (0.024-0.184); PEU-Rand. Prot/Creat Ratio 171 mg/g creat (24-184); PEU-Random Ur. Gamma Globulin 0 %; PEU-Random Urine A1 Globulin 0 %; PEU-Random Urine A2 Globulin 0 %; PEU-Random Urine Albumin 100 %; PEU-Random Urine Beta Globulin 0 %; PEU-Random Urine Creatinine 123 mg/dL (20-275); PEU-Random Urine Protein 21 mg/dL (5-24)
[2024-12-24 22:04] LABS: Anti Nuclear Antibody Pattern Nuclear, Speckled; Anti Nuclear Antibody Screen POSITIVE (NEGATIVE); Anti Nuclear Antibody Titer 1:80 titer
[2024-12-24 23:12] LABS: Prot Elec - Albumin 3.8 g/dL (3.8-4.8); Prot Elec - Alpha1 0.3 g/dL (0.2-0.3); Prot Elec - Alpha2 0.8 g/dL (0.5-0.9); Prot Elec - Beta 1 0.4 g/dL (0.4-0.6); Prot Elec - Beta 2 0.5 g/dL (0.2-0.5); Prot Elec - Gamma 1.2 g/dL (0.8-1.7); Prot Elec - Total Protein 6.9 g/dL (6.1-8.1)
[2024-12-24 23:33] LABS: Kappa, Serum 319 mg/dL (176-443); Kappa/Lambda Ratio, Serum 1.63 (1.29-2.55); Lambda, Serum 196 mg/dL (91-240)
== END 2024-12-20 09:07 | disposition home or self-care (01) ==
LOC: HO.LAB 09:06
PROVIDERS: PCP Internal Medicine; Visit Provider Internal Medicine Critical Care Medicine
DX: N17.9 Acute kidney failure, unspecified (principal); E11.9 Type 2 diabetes mellitus without complications
CPT/HCPCS: 80048; 81001; 82043; 82570; 83883; 84156; 84165; 84166; 85027; 86021; 86038; 86039; 86160; 86704; 86706; 86803; 87340; 87389

== ENCOUNTER 2024-12-23 12:50 | Outpatient (AMB) | payer MEDICARE, MEDICAID, SELFPAY ==
--- OUTSIDE RECORDS SUMMARY | 2014-10-23 21:00 | XMS_ITS | Continuity of Care Document ---
Author Organization [facility] Address [address] [place] [address] Phone Care Team Providers Care Applications Chemist Name Role Phone Yvan Mittal MD Unavailable Unavailable Procedures Procedure Date ANESTH, LOW INTESTINE SCOPE Advance Directives Directive Yes / No Effective Date File Name No Information Encounters Encounter Description Practice Location Reason(s) For Visit Diagnoses Date Provider Providers Copied on Encounter [facility], [address], [place], [place], [id number], [place] tel:[phone] [facility] No Information 5 Kyrie Santoro. [address], [address], [place], [place], [id number] , [place]. tel:[phone] Family History Family Member Type Diagnosis Age At Onset No Information Payers Payer name Insurance type Covered alliance party ID Authoriza timolly(s) [employer] CI [id number] Social History Type Description Quantity Date Captured Comments Sex Female Smoking Status No Information Chief Complaint And Reason For Visit No Information Reason For Referral Reason For Referral No Information History Of Present Illness Encounter Date Complaint History Of Prese nt Illness No Information Functional Status Date Functional Assessmen t No Information Instructions Date Instruction Additional Infor mation No Information Assessments Type Assessment Date No Information Patient Care Teams Name Effective Dates (start - stop) Status Members No Information
--- OUTSIDE RECORDS SUMMARY | 2024-04-08 07:30 | XMS_ITS ---
Author Organization [facility] Address [address] [place] [address] Care Team Providers Care Wet Roller Name Role Phone Betzaida Corey Primary Care Provider Tona Vargas [phone] Encounters Encounter Location Date Provider Diagnosis [facility] [address] [place] [address] 04/08/2024 Tona Arias Plan Of Treatment No Information Progress Notes * Charity CERVANTESDOB:[birth year] (84 yo F)Acc No.[id number]:04/08/2024 Progress Note Patient: Kinsey HERNANDEZz Provider: Gwendolyn Arias DPM :1940 A ge:83 Y S ex:Female Date:04/08/2024 Address:[address] [place], [place] [id number] Pcp:Betzaida Corey Subjective: * Chief Complaints: * * Medical History: Objective: * Vitals: Assessment: Plan: * Treatment: * Images: * The named appointment provid er may or may not be the originator of this progress note, and it is not deemed complete until electronically signed by the appointment provider. Sign off status: Pending * Provider: Gwendolyn Arias DPM Date: 06/09/2023 Generated for Terrii ng/Fayoug/eTransmitting on: 0 12/23/2024 02:01 PM EDT
--- NOTE | 2024-12-23 12:55 | HO.NEPHOV_ITS ---
Vital Signs 12/23/24 13:06 Height 4 ft 11 in Weight 164 lb BMI 33.1 BP 130/60 Blood Pressure Location Rt brachial Position Sitting Pulse 71 Pulse Source Pulse Oximeter Pulse Oximetry (%) 96 Oxygen Delivery Method Room Air Intake Visit Reasons: 2wk fu w labs/ LVM Fire Investigation Lieutenant Required: No Fire Investigation Lieutenant Services: Fire Investigation Lieutenant Offered & Declined (Niece will translate ) Accompanied by: Nephew or Niece Allergies gluten Adverse Reaction (Intermediate, Uncoded 11/17/24 11:22) Diarrhea HPI Comments Details: 84-year-old lady with past medical history of CKD, diabetes mellitus, hypertension, hyperlipidemia, osteoma, osteoarthritis of knee is here for follow up. Last seen by Dr Knight to establish care on 12/03/24. 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 She is here with her granddaughter, Constanza. creatinine 1.05 on 08/21/24 patient had crackles at the lung bases, lower extremity swelling, orthopnea. Was started on lasix 40mg PO BID with instructions to reduce dose to 40mg once daily once swelling decreased. Patient reports today she did not reduce dose after swelling improved a few days after starting the diuretic, states she has continued to take 40mg BID. She is also on losartan 100mg PO daily. 12/20/24 repeat blood work with creatinine of 1.45 patient reports she feels well today, with exception of some wheezing, which is worse at night. 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 She reports her breathing overall has improved with diuretics, and that her swelling has gone down significantly. She denies other changes/concerns today. [facility] Surgical History H/O cardiac catheterization Hx of cholecystectomy H/O total hysterectomy Family History Mother No problems noted. Father Diabetes Sister Breast cancer Sister Breast cancer Sister Liver cancer Social History Household Members: Family Housing: Other Alcohol intake: never Patient Tobacco Use Status: Never used Tobacco e-Cigarette/Vaping Use: Never Used Second Hand Smoke Exposure: No service: No Current occupational status: disabled Cognitive needs: No Hearing needs: No Vision needs: Yes Review of Systems Const All systems reviewed & are unremarkable except as noted in HPI and below Physical Exam Const General: no acute distress, alert and awake Resp Effort & Inspection: normal respiratory effort and able to speak in complete sentences Auscultation: no crackles and wheezes Cardio Jugular venous distension: no JVD Rate: regular rate Rhythm: regular rhythm Heart sounds: S1 normal heart sound present and S2 normal heart sound present GI Palpation (GI): Soft to palpation and nontender General: Yes no CVA tenderness Back/Spine/Pelvis Back: no CVA tenderness Skin Rashes: no rashes Extrem General: Yes edema (trace BLE pitting edema. ) Results Reviewed Nephrology Results: Hgb, (12.0-16.0) 11.3 g/dl L 12/20/24 WBC, (4.8-10.8) 5.1 X10*3/uL 12/20/24 Plt Count, (160-400) 181 X10*3/uL 12/20/24 Sodium, (135-145) 143 mmol/L 12/20/24 Potassium, (3.3-5.1) 4.6 mmol/L 12/20/24 Chloride, (96-108) 104 mmol/L 12/20/24 Carbon Dioxide, (22-29) 31 mmol/L H 12/20/24 BUN, (9-16) 25 mg/dL H 12/20/24 Creatinine, (0.5-1.4) 1.45 mg/dL H 12/20/24 Calcium, (8.4-10.2) 9.5 mg/dL 12/20/24 Urine Protein, (Neg-Trace) Trace mg/dL 12/20/24 Urine Creatinine 119.11 mg/dL 12/20/24 Protein/Creatinin Ratio Pending 12/20/24 Renal US 08/09/23 Assessment & Plan Assessment & Plan (1) Chronic kidney disease: Code(s): N18.9 - Chronic kidney disease, unspecified Category: Medical (2) Acute kidney injury: Code(s): N17.9 - Acute kidney failure, unspecified Category: Medical (3) Hypertension: Code(s): I10 - Essential (primary) hypertension Category: Medical Plan RAIN on CKD likely secondary to ATN from intravascular volume depletion from diuresis in setting of ARB use. Advised to reduce lasix dose to 40mg PO once daily- patient verbalizes understanding Blood pressure acceptable today. Discussed low salt diet, activity as tolerated, avoiding NSAIDs. Advised to hold losartan pill- do not take until she sees Dr Knight next week- advised renal function should normalize before re-starting She will get lab work the day prior to her next appointment All questions answered. F/u 1 week with primary cad manager, Dr Knight. Orders: Orders Basic Metabolic Panel 1 Week N17.9 - Acute kidney failure, unspecified Coding Level of Care Code Est Pt Level 4 (79316) Diagnoses Chronic kidney disease N18.9 Acute kidney injury N17.9 Hypertension I10
[2024-12-23 13:06] VITALS: BP 130/60; PULSE 71; O2SAT 96; BMI 33.1
--- OUTSIDE RECORDS SUMMARY | 2024-12-23 14:02 | XMS_ITS | Patient Health Record ---
Author Organization [facility] Billing Info Address [address] [place] [address] Care Team Providers Care Duct Layer Helper Name Role Phone Selvin Diggs Primary Care [...] Problem Status W/U Status Risk Notes Problem [id number] Asymptomatic gallstones (K80.20) Active confirmed Plan Of Treatment No Information Insurance Providers Payer Name Payer Address Payer Phone Subscriber Number Group Number Insured Name Patient Relationship to Insured Coverage Start Date Coverage End Date SURGERY [facility] [address] [place], [place] [id number] [phone] [id number] Charity Douglas Self - patient is the insured 8 Medical (General) History Medical History History ICD Code gallbladder disease hypertension diabetes heart disease Surgical History Surgery Date(Month/Year) hysterectomy full 1987 Hospitalization History Reason Date(Month/Year) right side chest pain 11/20/17
== END 2024-12-23 13:30 | disposition home or self-care (01) ==
LOC: HO.HKA 12:51
PROVIDERS: PCP Internal Medicine; Visit Provider Nurse Practitioner Family
DX: N17.9 Acute kidney failure, unspecified (principal); I12.9 Hypertensive chronic kidney disease with stage 1 through stage 4 chronic kidney disease, or unspecified chronic kidney disease; N18.9 Chronic kidney disease, unspecified
CPT/HCPCS: 99214

== ENCOUNTER → 2024-12-23 12:50 | Outpatient (BNVA) | payer MEDICARE, MEDICAID, SELFPAY | PROVIDERS: PCP Internal Medicine; Visit Provider Nurse Practitioner Family | DX: I12.9 Hypertensive chronic kidney disease with stage 1 through stage 4 chronic kidney disease, or unspecified chronic kidney disease (principal); N18.9 Chronic kidney disease, unspecified; N17.9 Acute kidney failure, unspecified | CPT/HCPCS: 99212 ==

== ENCOUNTER 2024-12-31 09:53 | Outpatient (REF) | payer MEDICARE, MEDICAID, SELFPAY ==
--- OUTSIDE RECORDS SUMMARY | 2023-08-28 06:30 | XMS_ITS ---
Author Organization [facility] Address [address] [place] [address] Care Team Providers Care Branch Service Associate Name Role Phone Betazida Corey Primary Care Provider Tona Vargas [phone] Encounters Encounter Location Date Provider Diagnosis [facility] [address] [place] [address] 08/28/2023 Tona rAias Plan Of Treatment No Information Progress Notes * Cahrity CERVANTESDOB:[birth year] (84 yo F)Acc No.[id number]:08/28/2023 Progress Notes Patient: Kinsey HERNANDEZz Provider: Gwendolyn Arias DPM :1940 A ge:83 Y S ex:Female Date:08/28/2023 Address:[address] [place], [place] [id number] Pcp:Betzaida Corey Subjective: * Chief Complaints: * [...] 08/28/2023 Generated for Printi ng/Fayoug/eTransmitting on: 0 12/31/2024 11:11 AM EDT
--- OUTSIDE RECORDS SUMMARY | 2024-04-08 07:30 | XMS_ITS ---
Author Organization [facility] Address [address] [place] [address] Care Team Providers Care Striper Machine Name Role Phone Betzaida Corey Primary Care Provider Tona Vargas [phone] Encounters Encounter Location Date Provider Diagnosis [facility] [address] [place] [address] 04/08/2024 Tona Arias Plan Of Treatment No Information Progress Notes * Charity CERVANTESDOB:[birth year] (84 yo F)Acc No.[id number]:04/08/2024 Progress Note Patient: Kinsey HERNANDEZz Provider: Gwendolyn Arias DPM :1940 A ge:83 Y S ex:Female Date:04/08/2024 Address:[address] [place], [place] [id number] Pcp:Betzaida Corey Subjective: * Chief Complaints: * * Medical History: Objective: * Vitals: Assessment: Plan: * Treatment: * Images: * The named appointment provid er may or may not be the originator of this progress note, and it is not deemed complete until electronically signed by the appointment provider. Sign off status: Pending * Provider: Gwendolyn Arias DPM Date: 06/09/2023 Generated for Printi ng/Fayoug/eTransmitting on: 0 12/31/2024 11:11 AM EDT
[2024-12-31 10:11] LABS: MANUAL DIFF FLAG NO
[2024-12-31 11:05] LABS: Hematocrit 36.4 % (37.0-47.0); Hemoglobin 12.1 g/dl (12.0-16.0); Imm Gran Abs Auto 0.01 X10*3/uL (0.00-0.03); Imm Gran Pct Auto 0.2 % (0.0-0.4); Lymphocytes Absolute Auto 1.0 X10*3/uL (1.2-4.9); Mean Corpuscular HGB Conc 33.2 g/dl (31.0-35.0); Mean Corpuscular Hemoglobin 31.2 pg (27.0-33.0); Mean Corpuscular Volume 93.8 fL (80.0-98.0); NRBC Abs Auto 0.000 X10*3/uL (0.0-0.012); NRBC Pct Auto 0.0 /100WBC (0.0-0.2); Platelet Count 177 X10*3/uL (160-400); Red Blood Count 3.88 X10*6/uL (4.20-5.50); White Blood Count 4.7 X10*3/uL (4.8-10.8)
--- OUTSIDE RECORDS SUMMARY | 2024-12-31 11:12 | XMS_ITS | Patient Health Record ---
Author Organization [facility] Billing Info Address [address] [place] [address] Care Team Providers Care Dope Sprayer Name Role Phone Selvin Diggs Primary Care [...] Problem Status W/U Status Risk Notes Problem [id number] Asymptomatic gallstones (K80.20) Active confirmed Plan Of Treatment No Information Insurance Providers Payer Name Payer Address Payer Phone Subscriber Number Group Number Insured Name Patient Relationship to Insured Coverage Start Date Coverage End Date SURGERY [facility] [address] [place], [place] [id number] [phone] [id number] Charity Douglas Self - patient is the insured 8 Medical (General) History Medical History History ICD Code gallbladder disease hypertension diabetes heart disease Surgical History Surgery Date(Month/Year) hysterectomy full 1987 Hospitalization History Reason Date(Month/Year) right side chest pain 11/20/17
--- OUTSIDE RECORDS SUMMARY | 2024-12-31 11:12 | XMS_ITS | Patient Health Record ---
[facility] Address [address] [facility] [place] [address] Care Team Providers Care Supervisor Crack Off Name Role Phone Betzaida Corey Primary Care Provider Tona Vargas Unavailable [phone] Allergies Allergen (clinical drug ingredient) Drug/Non Drug Allergy documented on EMR Reaction Allergy Type Onset Date Status Gluten Gluten diarrhea Allergy Active Reason For Referral No Information Medications Medication SIG (Take, Route, Frequency, Duration) Notes Start Date End Date Status Albuterol Sulfate HFA 108 (90 Base) MCG/ACT INHALE 1 PUFF BY MOUTH EVERY 4 HOURS NEEDED FOR SHORTNESS OF BREATH Inhalation; Duration: 33 Days Active Vitamin D3 25 MCG (1000 UT) TAKE 1 CAPSU LE BY MOUTH EVERY DAY Oral; Duration: 90 Days Active Gabapentin 600 MG TAKE 1 TABLET BY VAN TH DAILY Oral; Duration: 30 Days Active Montelukast Sodium 10 MG TAKE 1 TABLET B Y MOUTH DAILY Oral; Duration: 30 Days Active Fluticasone Furoate-Vilanterol 200-25 MCG/ACT Inhalation; Duration: 30 Days Active Extra Depth Orthopedic Shoes (1 Pair) with Customized Heat Molded Multidensity Innersoles (3 Pair) as directed Dx: NIDDM/Polyneuropathy (E11.42), Hammertoe Foot Deformity (M20.41,M20.42), Preulcerative Skin Lesion(s) (L85.1 09/11/2023 Active Custom Orthotics as directed 09/11/2023 Active Losartan Potassium 100 MG Oral; Duration: 90 Days Active Bisoprolol Fumarate 5 MG TAKE 1 TABLET B Y MOUTH EVERY DAY Oral; Duration: 15 Days Active Isosorbide Mononitrate ER 30 MG TAKE 1 TABLET BY MOUTH DAILY Oral; Duration: 30 Days Active Spironolactone 25 MG TAKE 1 TABLET BY MO UTH EVERY DAY Oral; Duration: 90 Days Active Loratadine 10 MG TAKE 1 TABLET BY VAN TH EVERY DAY Oral; Duration: 30 Days Active Janumet 50-1000 MG TAKE 1 TABLET BY VAN TH TWICE DAILY Oral; Duration: 30 Days Active amLODIPine Besylate 5 MG TAKE 1 TABLET B Y MOUTH EVERY DAY Oral; Duration: 15 Days Active Social History Tobacco Use: [...] Problem Acquired hammer toe of right foot (4078192500961413 ) Other hammer toe(s) (acquired), right foot (M20.41) Active confirmed Problem Acquired hammer toe of left foot (6069266785484827 ) Other hammer toe(s) (acquired), left foot (M20.42) Active confirmed Problem Polyneuropathy due to diabetes mellitus type I (108381691) Type 1 diabetes mellitus with diabetic polyneuropathy (E10.42) Active confirmed Problem Polyneuropathy due to type 2 diabetes mellitus (633794739) Type 2 diabetes mellitus with diabetic polyneuropathy (E11.42) Active confirmed Problem Plantar fasciitis of left foot (4033257802703918 1) Plantar fasciitis of left foot (M72.2) Active confirmed Problem Interstitial myositis (49629750) Interstitial myositis of left foot (M60.172) Active confirmed Vital Signs Height 4 ft 11 in in 01/29/2024 Weight 170 lbs 01/29/2024 BMI 34.33 kg/m2 01/29/2024 Encounters Encounter Location Date Provider Diagnosis [facility] [address] 01/29/2024 Tona Arias Type 2 diabetes mellitus with diabetic polyneuropathy E11.42 ; Tinea unguium B35.1 and Ingrown nail L60.0 [facility] [address] [place] [address] 01/29/2024 [facility] [place] [address] [facility] [address] [place] [address] 04/08/2024 [facility] [address] [place] [address] 04/08/2024 [facility] Assessments Encounter Date Diagnosis (ICD Code) Assessment Notes Treatment Notes Treatment Clinical Notes Section Notes 01/29/2024 Type 2 diabetes mellitus with diabetic polyneuropathy (ICD-10 - E11.42) 01/29/2024 Tinea unguium (ICD-10 - B35.1) 01/29/2024 Ingrown nail (ICD-10 - L60.0) Plan Of Treatment No Information Insurance Providers Payer Name Payer Address Payer Phone Subscriber Number Group Number Insured Name Patient Relationship to Insured Coverage Start Date Coverage End Date [facility] [address] [place] [id number] Charity Win Self - patient is the insured Medical (General) History Medical History History ICD Code Arthritis asthma Back,Hip,and Knee pain Diabetic Diverticulosis High blood pressure Poor circulation sinusitis Osteoporosis Surgical History Surgery Date(Month/Year) cholecystectomy 2019
[2024-12-31 12:08] LABS: Microalbum/Creatinine Ratio Ur 25.5 ug/mg cr (<30)
[2024-12-31 12:19] LABS: Alanine Aminotransferase 14 U/L (0-31); Albumin Level 4.3 g/dL (3.5-5.0); Alkaline Phosphatase 65 U/L (39-117); Anion Gap 12 (12-20); Aspartate Amino Transferase 28 U/L (5-31); Blood Urea Nitrogen 29 mg/dL (9-16); Calcium 9.9 mg/dL (8.4-10.2); Carbon Dioxide 33 mmol/L (22-29); Chloride 101 mmol/L (96-108); Cholesterol 217 mg/dL (<200); Estimated Glomerular Filt Rate 36; HDL Cholesterol 60 mg/dL (>40); Iron 76 mcg/dL (30-160); Percent Iron Saturation 27 % (15-50); Potassium 3.9 mmol/L (3.3-5.1); Sodium 142 mmol/L (135-145); Total Iron Binding Capacity 281 mcg/dL (228-428); Total Protein 7.7 g/dL (6.5-8.0); Triglycerides 110 mg/dL (<150); Unsaturated Iron Binding 205 ug/dL
[2024-12-31 12:25] LABS: Folate 12.5 ng/mL (> or = 4.0); Vitamin B12 230 pg/mL (200-900)
== END 2024-12-31 09:54 | disposition home or self-care (01) ==
LOC: HO.LAB 09:53
PROVIDERS: PCP Internal Medicine; Visit Provider Nurse Practitioner Family
DX: E53.8 Deficiency of other specified B group vitamins (principal); E78.5 Hyperlipidemia, unspecified; D64.9 Anemia, unspecified; E11.9 Type 2 diabetes mellitus without complications; E55.9 Vitamin D deficiency, unspecified; R80.9 Proteinuria, unspecified
CPT/HCPCS: 36415; 80053; 80061; 82043; 82306; 82570; 82607; 82746; 83540; 85025

== ENCOUNTER 2025-01-02 15:15 | Outpatient (AMB) | payer MEDICARE, MEDICAID, SELFPAY ==
--- OUTSIDE RECORDS SUMMARY | 2014-10-23 21:00 | XMS_ITS | Continuity of Care Document ---
Author Organization [facility] Address [address] [place] [address] Phone Care Team Providers Care Live In Housekeeper Nanny Name Role Phone Yvan Mittal MD Unavailable Unavailable Procedures Procedure Date ANESTH, LOW INTESTINE SCOPE Advance Directives Directive Yes / No Effective Date File Name No Information Encounters Encounter Description Practice Location Reason(s) For Visit Diagnoses Date Provider Providers Copied on Encounter [facility], [address], [place], [place], [id number], [place] tel:[phone] [facility] No Information 5 Kyrie Santoro. [address], [address], [place], [place], [id number] , [place]. tel:[phone] Family History Family Member Type Diagnosis Age At Onset No Information Payers Payer name Insurance type Covered democrat ID Authoriza timolly(s) [employer] CI [id number] Social History Type Description Quantity Date Captured [...]
--- OUTSIDE RECORDS SUMMARY | 2023-08-28 06:30 | XMS_ITS ---
Author Organization [facility] Address [address] [place] [address] Care Team Providers Care Director Of Residence Life Name Role Phone Betzaida Corey Primary Care Provider Tona Vargas [phone] Encounters Encounter Location Date Provider Diagnosis [facility] [address] [place] [address] 08/28/2023 Tona Arias Plan Of Treatment No Information Progress Notes * Charity CERVANTESDOB:[birth year] (84 yo F)Acc No.[id number]:08/28/2023 Progress Notes Patient: Kinsey HERNANDEZz Provider: Gwendolyn Arias DPM :1940 A ge:83 Y S ex:Female Date:08/28/2023 Address:[address] [place], [place] [id number] Pcp:Betzaida Corey Subjective: * Chief Complaints: * * Medical History: Objective: * Vitals: Assessment: Plan: * Treatment: * Images: * The named appointment provid er may or may not be the originator of this progress note, and it is not deemed complete until electronically signed by the appointment provider. Sign off status: Pending * Provider: Gwendolyn Arias DPM Date: 0 08/28/2023 Generated for Printi ng/Fayoug/eTransmitting on: 0 01/02/2025 04:16 PM EDT
--- OUTSIDE RECORDS SUMMARY | 2024-04-08 07:30 | XMS_ITS ---
Author Organization [facility] Address [address] [place] [address] Care Team Providers Care It Security Project Manager Name Role Phone Betzaida Corey Primary Care Provider Tona Vargas [phone] Encounters Encounter Location Date Provider Diagnosis [facility] [address] [place] [address] 04/08/2024 Tona Arias Plan Of Treatment No Information Progress Notes * Charity CERVANTESDOB:[birth year] (84 yo F)Acc No.[id number]:04/08/2024 Progress Note Patient: Kinsey HERNANDEZz Provider: Gwendolyn Arias DPM :1940 A ge:83 Y S ex:Female Date:04/08/2024 Address:[address] [place], [place] [id number] Pcp:Betzaida Corey Subjective: * Chief Complaints: * [...] 06/09/2023 Generated for Terrii ng/Fayoug/eTransmitting on: 0 01/02/2025 04:16 PM EDT
[2025-01-02 15:17] VITALS: BP 160/70; PULSE 93; O2SAT 95; BMI 32.9
--- NOTE | 2025-01-02 15:17 | HO.NEPHOV ---
Vital Signs 01/02/25 15:17 Height 4 ft 11 in Weight 163 lb BMI 32.9 BP 160/70 H Blood Pressure Location Lt brachial Position Sitting Pulse 93 Pulse Source Pulse Oximeter Pulse Oximetry (%) 95 Oxygen Delivery Method Room Air Intake Visit Reasons: 1wk f/u w/labs-Conf Airplane Charter Clerk Required: No Airplane Charter Clerk Services: Airplane Charter Clerk Offered & Declined (Niece will translate ) Accompanied by: Nephew or Niece Allergies gluten Adverse Reaction (Intermediate, Uncoded 11/17/24 11:22) Diarrhea Medication List - Last Reconciled 01/02/25 by Chandu Knight MD albuterol sulfate 90 mcg/actuation 2 puffs inhalation Q4H PRN 30 days blood sugar diagnostic (FreeStyle Lite Strips) Use 1 strip once a day blood-glucose meter (FreeStyle Lite Meter kit) As directed cane As directed famotidine 20 mg PO DAILY ferrous sulfate 325 mg PO DAILY 90 days furosemide (Lasix) 40 mg PO BID PRN gabapentin 600 mg PO DAILY 90 days isosorbide mononitrate ER 30 mg PO DAILY lancets (FreeStyle Lancets) Use 1 lancet once a day loratadine (Allergy Relief (loratadine)) 10 mg PO DAILY montelukast (Singulair) 10 mg PO DAILY nitroglycerin 0.3 mg sublingual Q5M PRN 90 days rosuvastatin 40 mg PO DAILY 90 days Shower Chair As directed sitagliptin phos-metformin 50-1,000 mg (Janumet) 1 tab PO BID syringe with needle ([employer] Luer Slip Syringe-Needle) Use 1 needle once a month HPI Comments Details: 84-year-old lady with past medical history of diabetes mellitus, hypertension, hyperlipidemia, osteoma, osteoarthritis of knee is here for follow up of proteinuria. 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 Here with great granddaughter Constanza. Diabetes mellitus: Well controlled HbA1c 6.0 in 06/2024, on sitagliptin metformin Hypertension: Off losartan 100 mg for RAIN on isosorbide mononitrate 30 mg daily, bisoprolol 5 Osteoarthritis: She had presented with an RAIN and significant lower extremity swelling last month. Her losartan 100 mg was withheld, amlodipine was stopped and Lasix was added. Currently her swelling has improved with the Lasix as well as her sleep has improved. [facility] Surgical History H/O cardiac catheterization Hx of cholecystectomy H/O total hysterectomy Family History Mother No problems noted. Father Diabetes Sister Breast cancer Sister Breast cancer Sister Liver cancer Social History Household Members: Family Housing: Other Alcohol intake: never Patient Tobacco Use Status: Never used Tobacco e-Cigarette/Vaping Use: Never Used Second Hand Smoke Exposure: No service: No Current occupational status: disabled Cognitive needs: No Hearing needs: No Vision needs: Yes Review of Systems Const Details: Const : no body aches, no chills, no excessive sweating and no fatigue Eyes: no blurry vision and no change in vision ENT: no bleeding gums and no change in voice, no dizziness Card: no chest pain, some shortness of breath, no orthopnea, mild PND but better Resp: no cough, no excessive phlegm production, no SOB GI: no abdominal pain and no nausea, no vomiting : no hematuria, no urinary frequency and no difficulty voiding Musc: no abnormal gait, no bone pain Neuro: no abnormal movements, no weakness, no dizziness Psych: no behavioral changes and no change in appetite Endo: no change in body appearance, no excessive sweating and no fatigue Physical Exam Vital Signs: Last Vital Signs Pulse 93 01/02/25 15:17 BP 174/72 H 01/02/25 15:17 Pulse Ox 95 01/02/25 15:17 Oxygen Delivery Method Room Air 01/02/25 15:17 BMI result Body Mass Index 32.9 General: not in any acute distress, comfortable and pleasant Nutritional Appearance: well nourished and weight Eyes: normal position, no icterus Neck: No lymphadenopathy, no thyromegaly Resp: bilateral air entry equal, bilateral wheeze heard occasional basal crackles heard Cardio: normal S1, S2 heard, no murmur heard, no edema GI: soft, nontender, no guarding, no hepatosplenomegaly : bladder normal to inspection, bladder normal to palpation, no renal angle tenderness Skin: no rashes or lesions noted and elasticity normal Neuro: oriented to person, oriented to place, oriented to time and moves all extremities Results Reviewed Nephrology Results: Hgb, (12.0-16.0) 12.1 g/dl 12/31/24 WBC, (4.8-10.8) 4.7 X10*3/uL L 12/31/24 Plt Count, (160-400) 177 X10*3/uL 12/31/24 Sodium, (135-145) 142 mmol/L 12/31/24 Potassium, (3.3-5.1) 3.9 mmol/L 12/31/24 Chloride, (96-108) 101 mmol/L 12/31/24 Carbon Dioxide, (22-29) 33 mmol/L H 12/31/24 BUN, (9-16) 29 mg/dL H 12/31/24 Creatinine, (0.5-1.4) 1.38 mg/dL 12/31/24 Calcium, (8.4-10.2) 9.9 mg/dL 12/31/24 Urine Protein, (Neg-Trace) Trace mg/dL 12/20/24 Urine Creatinine 101.61 mg/dL 12/31/24 Protein/Creatinin Ratio, (24-184) 171 mg/g creat 12/20/24 Renal US 08/09/23 Assessment & Plan Assessment & Plan (1) Hypertension: Code(s): I10 - Essential (primary) hypertension Category: Medical (2) Chronic kidney disease: Code(s): N18.9 - Chronic kidney disease, unspecified Category: Medical (3) Asthma: Code(s): J45.909 - Unspecified asthma, uncomplicated Category: Medical (4) Coronary artery disease: Code(s): I25.10 - Atherosclerotic heart disease of [place] coronary artery without angina pectoris Category: Medical Plan Chronic kidney disease stage IIIbA2: possibly secondary to long standing DM and atherosclerotic vascuclar disease from HTN - no family history of CKD, no history of renal stones in the past, NSAID use. - baseline creatinine around 1.3 , GFR 36 - urine albumin creatinine ratio: 52.3 -> 25.5 - Urinalysis >50 WBC, no RBC, no protein, currently no symptom - avoid nephrotoxic medications not limited to NSAIDs, contrast etc. - importance of diet, weight loss, adequate blood pressure control, stopped smoking we will explained to patient - negative hepatitis panel, HIV, ANCA, normal complements, SPEP, UPEP, serum free light chains - RORY positive 1:80, nuclear speckled pattern will refer to rheumatology next visit Hypertension: - target blood pressures less than 130/90 mm Hg - On isosorbide mononitrate 30 mg daily, bisoprolol 5 as she has history of CAD. Losartan 100mg was witheld due to RAIN, amlodipine stopped due to edema. Was off bisoprolol for 2 days as she ran out of prescription. - will restart losartan at 50mg, will check BMP and adjust dose in a month. - her bibasilar crackles has reduced and lower extremity swelling is resolved. Still has symptoms of PND, orthopnea but also has a component of asthma. Will reduce lasix 40mg to once daily. Coronary artery disease: - seeing Dr Wilhelm, was waiting on records from [place] before next steps but looks like patient is lost on followup - had a cardiac cath in [place] 3 years ago, since then was started on amlodipine, isosorbide mononitrate and bisoprolol - will get TTE. Anemia: - hemoglobin 12 - Iron profile normal in July 2024 Mineral bone disease: - normal calcium, vitamin-D Orders: Orders Basic Metabolic Panel 1 Month I10 - Essential (primary) hypertension, I25.10 - Atherosclerotic heart disease of [place] coronary artery without angina pectoris, N18.9 - Chronic kidney disease, unspecified CA echo transthorac w con Today I10 - Essential (primary) hypertension, I25.10 - Atherosclerotic heart disease of [place] coronary artery without angina pectoris UA and rflx microscopic 1 Month I10 - Essential (primary) hypertension, I25.10 - Atherosclerotic heart disease of [place] coronary artery without angina pectoris, N18.9 - Chronic kidney disease, unspecified Microalbumin, Random (w Creat) 1 Month I10 - Essential (primary) hypertension, I25.10 - Atherosclerotic heart disease of [place] coronary artery without angina pectoris, N18.9 - Chronic kidney disease, unspecified Medications: New losartan 50 mg PO DAILY 30 tabs 3RF 30 days bisoprolol fumarate 5 mg PO DAILY 30 tabs 5RF Coding Level of Care Code Est Pt Level 4 (84262) Diagnoses Hypertension I10 Chronic kidney disease N18.9 Asthma J45.909 Coronary artery disease I25.10
--- OUTSIDE RECORDS SUMMARY | 2025-01-02 16:17 | XMS_ITS | Patient Health Record ---
Author [facility] Address [address] [place] [address] Care Team Providers Care Hyperion Essbase Developer Name Role Phone Betzaida Corey Primary Care Provider Tona Vargas Unavailable [phone] Allergies Allergen (clinical drug ingredient) Drug/Non Drug [...] Problem Acquired hammer toe of right foot ([id number] ) Other hammer toe(s) (acquired), right foot (M20.41) Active confirmed Problem Acquired hammer toe of left foot ([id number] ) Other hammer toe(s) (acquired), left foot (M20.42) Active confirmed Problem Polyneuropathy due to diabetes mellitus type I (913603692) Type 1 diabetes mellitus with diabetic polyneuropathy (E10.42) Active confirmed Problem Polyneuropathy due to type 2 diabetes mellitus (122376249) Type 2 diabetes mellitus with diabetic polyneuropathy (E11.42) Active confirmed Problem Plantar fasciitis of left foot ([id number] 1) Plantar fasciitis of left foot (M72.2) Active confirmed Problem Interstitial myositis (78692178) Interstitial myositis of left foot (M60.172) Active confirmed Vital Signs Height 4 ft 11 in in 01/29/2024 Weight 170 lbs 01/29/2024 BMI 34.33 kg/m2 01/29/2024 Encounters Encounter Location Date Provider Diagnosis [facility] [address] 01/29/2024 Tona Arias Type 2 diabetes mellitus with diabetic polyneuropathy E11.42 ; Tinea unguium B35.1 and Ingrown nail L60.0 [facility] [address] [place] [address] 01/29/2024 [facility] [place] [address] [place] [address] 04/08/2024 [facility] [address] [place] [address] 04/08/2024 [facility] Assessments Encounter Date Diagnosis (ICD Code) Assessment [...] Insured Coverage Start Date Coverage End Date [facility] Adv [address] [place] [id number] Charity Win Self - patient is the insured Medical (General) History Medical History History ICD Code Arthritis asthma Back,Hip,and Knee pain Diabetic Diverticulosis High blood pressure Poor circulation sinusitis Osteoporosis Surgical History Surgery Date(Month/Year) cholecystectomy 2019
--- OUTSIDE RECORDS SUMMARY | 2025-01-02 16:17 | XMS_ITS | Patient Health Record ---
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 Repairer Name Role Phone Selvin Diggs Primary Care [...] Problem Status W/U Status Risk Notes Problem [id number] Asymptomatic gallstones (K80.20) Active confirmed Plan Of Treatment No Information Insurance Providers Payer Name Payer Address Payer Phone Subscriber Number Group Number Insured Name Patient Relationship to Insured Coverage Start Date Coverage End Date SURGERY [facility] [address] [place], [place] [id number] Charity Douglas Self - patient is the insured 8 Medical (General) History Medical History History ICD Code gallbladder disease hypertension diabetes heart disease Surgical History Surgery Date(Month/Year) hysterectomy full 1987 Hospitalization History Reason Date(Month/Year) right side chest pain 11/20/17
== END 2025-01-02 15:56 | disposition home or self-care (01) ==
LOC: HO.HKA 15:15
PROVIDERS: PCP Internal Medicine; Visit Provider Internal Medicine Critical Care Medicine
DX: I12.9 Hypertensive chronic kidney disease with stage 1 through stage 4 chronic kidney disease, or unspecified chronic kidney disease (principal); N18.9 Chronic kidney disease, unspecified; J45.909 Unspecified asthma, uncomplicated; I25.10 Atherosclerotic heart disease of native coronary artery without angina pectoris
CPT/HCPCS: 99214

== ENCOUNTER → 2025-01-02 15:15 | Outpatient (BNVA) | payer MEDICARE, MEDICAID, SELFPAY | PROVIDERS: PCP Internal Medicine; Visit Provider Internal Medicine Critical Care Medicine | DX: I12.9 Hypertensive chronic kidney disease with stage 1 through stage 4 chronic kidney disease, or unspecified chronic kidney disease (principal); N18.32 Chronic kidney disease, stage 3b; I25.10 Atherosclerotic heart disease of native coronary artery without angina pectoris; J45.909 Unspecified asthma, uncomplicated | CPT/HCPCS: 99212 ==

== ENCOUNTER 2025-01-16 14:19 | Outpatient (AMB) | payer MEDICARE, MEDICAID, SELFPAY ==
--- NOTE | 2025-01-16 14:27 | A.OFFPC_ITS ---
Vital Signs 01/16/25 14:28 Height 4 ft 11 in Weight 164 lb 2 oz BMI 33.1 BP 120/50 L Blood Pressure Location Lt brachial Position Sitting Pulse 83 Pulse Source Pulse Oximeter Pulse Oximetry (%) 95 Oxygen Delivery Method Room Air Intake Visit Reasons: Annual Exam - see comments Bargeman Required: No Accompanied by: Self / Same As Patient Allergies gluten Adverse Reaction (Intermediate, Uncoded 01/16/25 14:55) Diarrhea Medication List - Last Reconciled 01/16/25 by Janna Shipley MD albuterol sulfate 90 mcg/actuation 2 puffs inhalation Q4H PRN 30 days bisoprolol fumarate 5 mg PO DAILY blood sugar diagnostic (FreeStyle Lite Strips) Use 1 strip once a day blood-glucose meter (FreeStyle Lite Meter kit) As directed cane As directed famotidine 20 mg PO DAILY ferrous sulfate 325 mg PO DAILY 90 days furosemide 40 mg PO DAILY gabapentin 600 mg PO DAILY 90 days isosorbide mononitrate ER 30 mg PO DAILY lancets (FreeStyle Lancets) Use 1 lancet once a day loratadine (Allergy Relief (loratadine)) 10 mg PO DAILY losartan 50 mg PO DAILY 30 days montelukast (Singulair) 10 mg PO DAILY nitroglycerin 0.3 mg sublingual Q5M PRN 90 days rosuvastatin 40 mg PO DAILY 90 days Shower Chair As directed sitagliptin phos-metformin 50-1,000 mg (Janumet) 1 tab PO BID syringe with needle ([employer] Luer Slip Syringe-Needle) Use 1 needle once a month Tobacco use date assessed: 01/16/25 Fall risk assessment: No Falls in past year Last assessed Fall Risk: 01/16/25 Dental Screening Dental Screen Date: 01/16/25 Did you have a dental visit in the last 12 months?: No Did you have a dental problem in the last 6 months where you did not have access to dental care?: No Was dental information given to patient?: Patient has dentist HPI HPI Comments History of Present Illness Details The patient is an 84-year-old female presenting for an annual physical examination and preventative care. She has a history of diabetes mellitus, with her most recent HbA1c level at 6.5%, indicating good control of her blood glucose levels. Her blood pressure has been well-managed, currently at 120/50 mmHg, which is within the target range of less than 130/80 mmHg. The patient has a known gluten allergy and is currently managing it with dietary restrictions. She has a history of hyperlipidemia, with her LDL cholesterol level at 135 mg/dL, which is above the recommended level of 70 mg/dL. An additional medication is planned to address this elevated cholesterol level. The patient has experienced anemia, which has shown improvement recently. She has chronic kidney disease, with her glomerular filtration rate (GFR) improving slightly from 34 to 36. Her surgical history includes a cholecystectomy and hysterectomy. The patient does not smoke or consume alcohol. [facility] Medical History (Updated 01/16/25 @ 16:05 by Janna Shipley MD) Acute kidney injury Surgical History H/O cardiac catheterization Hx of cholecystectomy H/O total hysterectomy Family History Mother No problems noted. Father Diabetes Sister Breast cancer Sister Breast cancer Sister Liver cancer Social History Household Members: Family Housing: Other Alcohol intake: never Patient Tobacco Use Status: Never used Tobacco e-Cigarette/Vaping Use: Never Used Second Hand Smoke Exposure: No service: No Current occupational status: disabled Cognitive needs: No Hearing needs: No Vision needs: Yes Questionnaire Thrive Questionnaire Date Thrive assessed: 09/04/24 I am a: Patient What is your living situation today?: I have a steady place to live Within the past 12 months, did the food you bought not last and you didn't have the money to get more?: Never true Within the past 12 months, did you worry whether your food would run out before you got money to buy more?: Never true Do you have trouble paying for medicines?: No Do you have trouble getting transportation to medical appointments?: Yes Do you have trouble paying your heating and electricity bill?: Yes Do you have trouble taking care of your child, family member or friend?: No Do you have trouble with day-to-day activities such as bathing, preparing meals, shopping, managing finances, etc.?: Yes Are you currently unemployed and looking for a job?: No Are you interested in more education?: No Currently or been in a relationship where the following occur: No concerns reported THRIVE Score: 2 AUDIT C Alcohol Use Questionnaire (AUDIT-C) 1. How often do you have a drink containing alcohol?: Never 3. How often do you have six or more drinks on one occasion?: Never Total Score: 0 Score Reviewed/Action Taken: No BRADY-7 AMB Questionnaire BRADY-7 Date BRADY - 7 assessed: 09/04/24 Source: Developed by Drs. Kenneth Urban, Kelli Rowland, Mandeep Bangura and colleagues, with an educational sandeep from [employer]. Review of Systems Const All systems reviewed & are unremarkable except as noted in HPI and below Card Denies chest pain at rest, Denies chest pain with activity, Denies edema, Denies irregular heart rhythm, Denies claudication, Denies dyspnea, Denies dyspnea on exertion, Denies orthopnea, Denies paroxysmal nocturnal dyspnea and Denies slow heart rate Resp Denies cough, Denies dyspnea and Denies dyspnea on exertion GI Denies abdominal pain, Denies change in bowel habits, Denies excessive flatus, Denies nausea and Denies vomiting Physical exam (Primary Care) Vital Signs: Last Vital Signs Pulse 83 01/16/25 14:28 BP 120/50 L 01/16/25 14:28 Pulse Ox 95 01/16/25 14:28 Oxygen Delivery Method Room Air 01/16/25 14:28 BMI result Body Mass Index 33.1 BMI Assessment/Plan discussion: High BMI High, discussed plan: lifestyle, weight reduction, dietary and physical activity Tobacco/Smoking Status: Tobacco use Status Tobacco use date assessed 01/16/25 01/16/25 14:32 Patient Tobacco Use Status Never used Tobacco 01/16/25 14:27 e-Cigarette/Vaping Use Never Used 01/16/25 14:27 Thrive Assessment: Date of Thrive Assessment Date Thrive assessed 09/04/24 01/16/25 14:27 Currently or been in a relationship where the following occur: No concerns reported Eyes General: appearance normal, both eyes and all related structures Eyelids: Yes eyelids normal Conjunctivae: conjunctivae normal Neck Neck: Yes normal visual inspection and Yes supple Resp Effort & Inspection: normal respiratory effort Auscultation: clear to auscultation bilaterally Cardio Jugular venous distension: no JVD Rate: regular rate Rhythm: regular rhythm Heart sounds: S1 normal heart sound present and S2 normal heart sound present GI Inspection: Yes normal to inspection Palpation (GI): Soft to palpation and nontender Auscultation: normal bowel sounds Skin General skin exam: no rashes or lesions noted Neuro General: no focal motor deficits Extrem General: Yes full ROM Psych Appearance: grossly normal Results AMB Hemoglobin A1c AMB Hemoglobin A1c 6.5 % Last Edit by JULIA Ramsey on 01/16/25 14 :54 Immunizations pneumoc 20-julian conj-dip cr(PF) 0.5 mL IM syringe Performing Provider: Janna Shipley MD [facility] Administered by: JULIA Ramsey on 01/16/25 15:14 Dose Route Admin Location Dispensed Lot Number Expiration Date NDC Extender 0.5 mL IM Right Deltoid 0.5 mL [id number] 12/30/25 [employer] Total Dispensed Waste 0.5 mL 0 % VIS Given Date VIS Provided VIS Publication Date 01/16/25 Single Vaccine 24 Eligibility Eligibility Date Funding Source Not [facility] Eligible 01/16/25 Private Results Reviewed Results Reviewed: Laboratory Last Values Hgb A1c (Clinic) 6.5 % (4.0-6.0) H 01/16/25 14:43 Coding Level of Care Code Est Pt Prev Care >65y(32596) Diagnoses Physical exam Z00.00 Type 2 diabetes mellitus without complication, without long-term current use of insulin E11.9 Diabetes mellitus terminologist insulin use: without half-way use Diabetes mellitus complication status: without complication Time Spent (min) 35 Assessment & Plan Assessment & Plan (1) Physical exam: Code(s): Z00.00 - Encounter for general adult medical examination without abnormal findings Category: Medical (2) Type 2 diabetes mellitus: Code(s): E11.9 - Type 2 diabetes mellitus without complications Category: Medical Qualifiers: Diabetes mellitus half-way insulin use: without terminologist use Diabetes mellitus complication status: without complication Qualified Code(s): E11.9 - Type 2 diabetes mellitus without complications Plan Plan Patient was informed and verbally consented to the use of an ambient scribe for clinic note documentation during this visit. 1. Diabetes Mellitus The patient's diabetes mellitus is currently well-controlled with an HbA1c of 6.5%. 2. Hypertension The patient's hypertension is well-managed with a current blood pressure of 120/50 mmHg. 3. Gluten Allergy The patient manages her gluten allergy through dietary restrictions. 4. Hyperlipidemia The patient's LDL cholesterol is elevated at 135 mg/dL, and an additional medication is planned to address this. 5. Anemia The patient's anemia has shown improvement recently. 6. Chronic Kidney Disease The patient's chronic kidney disease shows slight improvement with a GFR increase from 34 to 36. 7. Preventative Care The patient received a pneumococcal vaccination during the visit. Orders: Orders Lipid Panel 4 Months E78.5 - Hyperlipidemia, unspecified Microalbumin, Random (w Creat) 4 Months R80.9 - Proteinuria, unspecified Vitamin B12 and Folate 4 Months E53.8 - Deficiency of other specified B group vitamins IRON PROFILE 4 Months D64.9 - Anemia, unspecified AMB Hemoglobin A1c Today Z13.9 - Encounter for screening, unspecified Complete Blood Count Auto Diff 4 Months D64.9 - Anemia, unspecified Vitamin D 25-OH Total 4 Months E55.9 - Vitamin D deficiency, unspecified Comprehensive [place]. Panel Fast 4 Months I10 - Essential (primary) hypertension Pneumococcal 20 Immunization Today Z23 - Encounter for immunization Medications: New ezetimibe 10 mg PO DAILY 90 tabs 1RF 90 days Refilled rosuvastatin 40 mg PO DAILY 90 tabs 1RF 90 days
[2025-01-16 14:28] VITALS: BP 120/50; PULSE 83; O2SAT 95; BMI 33.1
== END 2025-01-16 17:51 | disposition home or self-care (01) ==
LOC: HO.HMCH 14:20
PROVIDERS: PCP Internal Medicine; Visit Provider Internal Medicine
DX: Z00.00 Encounter for general adult medical examination without abnormal findings (principal); E11.9 Type 2 diabetes mellitus without complications; Z13.9 Encounter for screening, unspecified; Z23 Encounter for immunization

== ENCOUNTER → 2025-01-16 14:19 | Outpatient (BNVA) | payer MEDICARE, MEDICAID, SELFPAY | PROVIDERS: PCP Internal Medicine; Visit Provider Internal Medicine | DX: Z00.00 Encounter for general adult medical examination without abnormal findings (principal); E11.22 Type 2 diabetes mellitus with diabetic chronic kidney disease; E78.5 Hyperlipidemia, unspecified; N18.9 Chronic kidney disease, unspecified; D63.1 Anemia in chronic kidney disease; R80.9 Proteinuria, unspecified; E53.8 Deficiency of other specified B group vitamins; E55.9 Vitamin D deficiency, unspecified; Z23 Encounter for immunization | CPT/HCPCS: 83036; 90471; 90677; 99397 ==

== ENCOUNTER 2025-02-06 09:26 | Outpatient (REF) | payer MEDICARE, MEDICAID, SELFPAY ==
[2025-02-06 10:13] LABS: Hematocrit 35.6 % (37.0-47.0); Hemoglobin 11.3 g/dl (12.0-16.0); Mean Corpuscular HGB Conc 31.7 g/dl (31.0-35.0); Mean Corpuscular Hemoglobin 30.4 pg (27.0-33.0); Mean Corpuscular Volume 95.7 fL (80.0-98.0); NRBC Abs Auto 0.000 X10*3/uL (0.0-0.012); NRBC Pct Auto 0.0 /100WBC (0.0-0.2); Platelet Count 157 X10*3/uL (160-400); Red Blood Count 3.72 X10*6/uL (4.20-5.50); White Blood Count 5.9 X10*3/uL (4.8-10.8)
[2025-02-06 10:47] LABS: Appearance Urine Clear; Glucose Urine UA Negative (Negative); PH 6.5 (5.0-9.0); Specific Gravity - Urine 1.015 (1.005-1.025); UMIC TRIGGER UA YES
[2025-02-06 10:50] LABS: Anion Gap 8 (12-20); Blood Urea Nitrogen 22 mg/dL (9-16); Calcium 9.3 mg/dL (8.4-10.2); Carbon Dioxide 30 mmol/L (22-29); Chloride 109 mmol/L (96-108); Estimated Glomerular Filt Rate 44; Potassium 4.2 mmol/L (3.3-5.1); Sodium 143 mmol/L (135-145)
[2025-02-06 11:23] LABS: Microalbum/Creatinine Ratio Ur 88.9 ug/mg cr (<30)
== END 2025-02-06 09:27 | disposition home or self-care (01) ==
LOC: HO.LAB 09:26
PROVIDERS: PCP Internal Medicine; Visit Provider Internal Medicine Critical Care Medicine
DX: I12.9 Hypertensive chronic kidney disease with stage 1 through stage 4 chronic kidney disease, or unspecified chronic kidney disease (principal); N18.9 Chronic kidney disease, unspecified; I25.10 Atherosclerotic heart disease of native coronary artery without angina pectoris; N17.9 Acute kidney failure, unspecified; E66.3 Overweight
CPT/HCPCS: 36415; 80048; 81001; 82043; 82570; 85027

== ENCOUNTER 2025-02-11 14:47 | Outpatient (AMB) | payer MEDICARE, MEDICAID, SELFPAY ==
--- OUTSIDE RECORDS SUMMARY | 2023-08-28 06:30 | XMS_ITS ---
Author Organization [facility] Address [address] [place] [address] Care Team Providers Care Administrative Appeals Tribunal Member Name Role Phone Betzaida Corey Primary Care Provider Tona Vargas [phone] Encounters Encounter Location Date Provider Diagnosis [facility] [address] [place] [address] 08/28/2023 Tona Arias Plan Of Treatment No Information Progress Notes * Charity CERVANTESDOB:[birth year] (84 yo F)Acc No.[id number]:08/28/2023 Progress Notes Patient: Kinsey HERNANDEZz Provider: Gwendolyn Arias DPM :1940 A ge:83 Y S ex:Female Date:08/28/2023 Address:[address] [place], [place] [id number] Pcp:Betzaida Corey Subjective: * Chief Complaints: * * Medical History: Objective: * Vitals: Assessment: Plan: * Treatment: * Images: * The named appointment provid er may or may not be the originator of this progress note, and it is not deemed complete until electronically signed by the appointment provider. Sign off status: Pending * Provider: Gwendolyn Arias DPM Date: 0 08/28/2023 Generated for Terrii ng/Fayoug/eTransmitting on: 05:38 PM EDT
--- OUTSIDE RECORDS SUMMARY | 2024-04-08 07:30 | XMS_ITS ---
Author Organization [facility] Address [address] [place] [address] Care Team Providers Care Economic Adviser Name Role Phone Betzaida Corey Primary Care Provider Tona Vargas [phone] Encounters Encounter Location Date Provider Diagnosis [facility] [address] [place] [address] 04/08/2024 Tona Arias Plan Of Treatment No Information Progress Notes * Charity CERVANTESDOB:[birth year] (84 yo F)Acc No.[id number]:04/08/2024 Progress Note Patient: Kinsey HERNANDEZz Provider: Gwendolyn Arias DPM :1940 A ge:83 Y S ex:Female Date:04/08/2024 Address:[address] [place], [place] [phone] Pcp:Betzaida Corey Subjective: * Chief Complaints: * * Medical History: Objective: * Vitals: Assessment: Plan: * Treatment: * Images: * The named appointment provid er may or may not be the originator of this progress note, and it is not deemed complete until electronically signed by the appointment provider. Sign off status: Pending * Provider: Gwendolyn Arias DPM Date: 06/09/2023 Generated for Terrii helena/Fabrandon/eTransmitting on: 05:38 PM EDT
[2025-02-11 15:02] VITALS: BP 162/72; PULSE 71; O2SAT 95; BMI 33.1
--- NOTE | 2025-02-11 15:02 | HO.NEPHOV ---
Vital Signs 02/11/25 15:02 Height 4 ft 11 in Weight 164 lb BMI 33.1 BP 162/72 H Blood Pressure Location Lt brachial Position Sitting Pulse 71 Pulse Source Pulse Oximeter Pulse Oximetry (%) 95 Oxygen Delivery Method Room Air Intake Visit Reasons: 1mon f/u left vm Family Practice Doctor Required: Yes Family Practice Doctor Name: brayan [id number] Accompanied by: Grand Child Allergies gluten Adverse Reaction (Intermediate, Uncoded 01/16/25 14:55) Diarrhea HPI Comments Details: Tristanian interpretor: Brayan [id number] 84-year-old lady with past medical history of diabetes mellitus, hypertension, hyperlipidemia, osteoma, osteoarthritis of knee is here for follow up of proteinuria. Tristanian interpretor Rosemary. Here with great granddaughter Constanza. Diabetes mellitus: Well controlled HbA1c 6.0 in 06/2024, on sitagliptin metformin Hypertension: Had an RAIN losartan 100mg was stopped restarted at 50mg; on isosorbide mononitrate 30 mg daily, bisoprolol 5mg BID Osteoarthritis: She had presented with an RAIN and significant lower extremity swelling last month. Her losartan 100 mg was withheld, amlodipine was stopped and Lasix was added. Currently her swelling has improved with the Lasix as well as her sleep has improved. [facility] Medical History (Updated 01/16/25 @ 16:05 by Janna Shipley MD) Acute kidney injury Surgical History H/O cardiac catheterization Hx of cholecystectomy H/O total hysterectomy Family History Mother No problems noted. Father Diabetes Sister Breast cancer Sister Breast cancer Sister Liver cancer Social History Household Members: Family Housing: Other Alcohol intake: never Patient Tobacco Use Status: Never used Tobacco e-Cigarette/Vaping Use: Never Used Second Hand Smoke Exposure: No service: No Current occupational status: disabled Cognitive needs: No Hearing needs: No Vision needs: Yes Physical Exam Vital Signs: BMI result Body Mass Index 33.1 General: pleasant elderly lady comfortable sitting in chair Nutritional Appearance: well nourished and weight Eyes: normal position, no icterus Neck: No lymphadenopathy, no thyromegaly Resp: bilateral air entry equal, lung base crackles and occasional wheeze heard Cardio: normal S1, S2 heard, no murmur heard, no edema GI: soft, nontender, no guarding, no hepatosplenomegaly : bladder normal to inspection, bladder normal to palpation, no renal angle tenderness Skin: no rashes or lesions noted and elasticity normal Neuro: oriented to person, oriented to place, oriented to time and moves all extremities Results Reviewed Nephrology Results: Hgb, (12.0-16.0) 11.3 g/dl L 02/06/25 WBC, (4.8-10.8) 5.9 X10*3/uL 02/06/25 Plt Count, (160-400) 157 X10*3/uL L 02/06/25 Sodium, (135-145) 143 mmol/L 02/06/25 Potassium, (3.3-5.1) 4.2 mmol/L 02/06/25 Chloride, (96-108) 109 mmol/L H 02/06/25 Carbon Dioxide, (22-29) 30 mmol/L H 02/06/25 BUN, (9-16) 22 mg/dL H 02/06/25 Creatinine, (0.5-1.4) 1.17 mg/dL 02/06/25 Calcium, (8.4-10.2) 9.3 mg/dL Δ 02/06/25 Urine Protein, (Neg-Trace) Trace mg/dL 02/06/25 Urine Creatinine 79.81 mg/dL 02/06/25 Protein/Creatinin Ratio, (24-184) 171 mg/g creat 12/20/24 Renal US 08/09/23 Assessment & Plan Assessment & Plan (1) Hypertension: Code(s): I10 - Essential (primary) hypertension Category: Medical (2) Coronary artery disease: Code(s): I25.10 - Atherosclerotic heart disease of [place] coronary artery without angina pectoris Category: Medical (3) Chronic kidney disease: Code(s): N18.9 - Chronic kidney disease, unspecified Category: Medical Plan Chronic kidney disease stage IIIbA2: possibly secondary to long standing DM and atherosclerotic vascuclar disease from HTN - no family history of CKD, no history of renal stones in the past, NSAID use. - creatinine down to 1.17 , GFR 44 - urine albumin creatinine ratio: 52.3 -> 25.5 --> 88.9 - Urinalysis 6-10 WBC, no RBC, no protein, currently no symptom - avoid nephrotoxic medications not limited to NSAIDs, contrast etc. - importance of diet, weight loss, adequate blood pressure control, stopped smoking we will explained to patient - negative hepatitis panel, HIV, ANCA, normal complements, SPEP, UPEP, serum free light chains - JANNA positive 1:80, nuclear speckled pattern will refer to rheumatology if she develops worsening renal function or proteinuria or hematuria Hypertension: - target blood pressures less than 130/90 mm Hg - On isosorbide mononitrate 30 mg daily, bisoprolol 5 as she has history of CAD. Losartan 100mg was witheld due to RAIN, amlodipine stopped due to edema. - will increase losartan to 100mg, will check BMP and followup in a month. - her bibasilar crackles has reduced and lower extremity swelling is resolved. Still has symptoms of PND, orthopnea but also has a component of asthma. Continue taking lasix 40mg once daily every morning. Coronary artery disease: - seeing Dr Wilhelm, was waiting on records from [place] before next steps but looks like patient is lost on followup - had a cardiac cath in [place] 3 years ago, since then was started on amlodipine, isosorbide mononitrate and bisoprolol - missed an appointment for TTE, will reschedule appointment. Anemia: - hemoglobin 12 - Iron profile normal in July 2024 Mineral bone disease: - normal calcium, vitamin-D Orders: Orders [place] echo transthoracic complete 1 Day I10 - Essential (primary) hypertension, I25.10 - Atherosclerotic heart disease of [place] coronary artery without angina pectoris, N18.9 - Chronic kidney disease, unspecified Basic Metabolic Panel Today I10 - Essential (primary) hypertension, I25.10 - Atherosclerotic heart disease of [place] coronary artery without angina pectoris, N18.9 - Chronic kidney disease, unspecified Microalbumin, Random (w Creat) Today I10 - Essential (primary) hypertension, I25.10 - Atherosclerotic heart disease of [place] coronary artery without angina pectoris, N18.9 - Chronic kidney disease, unspecified UA and rflx microscopic Today I10 - Essential (primary) hypertension, I25.10 - Atherosclerotic heart disease of [place] coronary artery without angina pectoris, N18.9 - Chronic kidney disease, unspecified Medications: New losartan 100 mg PO DAILY 30 tabs 5RF 30 days Discontinued losartan Discontinued Reason: Doctor's Order 50 mg PO DAILY 30 days 30 tabs 3RF Coding Level of Care Code Est Pt Level 4 (88970) Diagnoses Hypertension I10 Coronary artery disease I25.10 Chronic kidney disease N18.9
--- OUTSIDE RECORDS SUMMARY | 2025-02-11 17:39 | XMS_ITS | Patient Health Record ---
Author Organization [facility] Address [address] [place] [address] Care Team Providers Care Ticketing Clerk Name Role Phone Betzaida Corey Primary Care Provider Tona Vargas Unavailable [phone] Allergies Allergen (clinical drug ingredient) Drug/Non Drug [...] Problem Acquired hammer toe of right foot (1648175897711147 ) Other hammer toe(s) (acquired), right foot (M20.41) Active confirmed Problem Acquired hammer toe of left foot (7779313749305942 ) Other hammer toe(s) (acquired), left foot (M20.42) Active confirmed Problem Polyneuropathy due to diabetes mellitus type I (572489787) Type 1 diabetes mellitus with diabetic polyneuropathy (E10.42) Active confirmed Problem Polyneuropathy due to type 2 diabetes mellitus (434624654) Type 2 diabetes mellitus with diabetic polyneuropathy (E11.42) Active confirmed Problem Plantar fasciitis of left foot (1133558532595019 1) Plantar fasciitis of left foot (M72.2) Active confirmed Problem Interstitial myositis (06235489) Interstitial myositis of left foot (M60.172) Active confirmed Encounters Encounter Location Date Provider Diagnosis [facility] [address] [address] 04/08/2024 Tona Arias [facility] [place] [address] [place] [address] 04/08/2024 Tona Arias Plan Of Treatment No Information Insurance Providers Payer Name Payer Address Payer Phone Subscriber Number Group Number Insured Name Patient Relationship to Insured Coverage Start Date Coverage End Date [facility] Adv [address] [place] [id number] Charity Win Self - patient is the insured Medical (General) History Medical History History ICD Code Arthritis asthma Back,Hip,and Knee pain Diabetic Diverticulosis High blood pressure Poor circulation sinusitis Osteoporosis Surgical History Surgery Date(Month/Year) cholecystectomy 2019
--- OUTSIDE RECORDS SUMMARY | 2025-02-11 17:39 | XMS_ITS | Patient Health Record ---
Author Organization [facility] Billing Info Address [address] [place], [place] [address] Care Team Providers Care Stitching Machine Setter Name Role Phone DontaeSelvin Primary Care Provider Unavailab le Reason For [...] Problem Status W/U Status Risk Notes Problem [id number] Asymptomatic gallstones (K80.20) Active confirmed Plan Of Treatment No Information Insurance Providers Payer Name Payer Address Payer Phone Subscriber Number Group Number Insured Name Patient Relationship to Insured Coverage Start Date Coverage End Date [facility] [address] [place], [place] [phone] [id number] Charity Douglas Self - patient is the insured 8 Medical (General) History Medical History History ICD Code gallbladder disease hypertension diabetes heart disease Surgical History Surgery Date(Month/Year) hysterectomy full 1987 Hospitalization History Reason Date(Month/Year) right side chest pain 11/20/17
== END 2025-02-11 15:33 | disposition home or self-care (01) ==
LOC: HO.HKA 14:48
PROVIDERS: PCP Internal Medicine; Visit Provider Internal Medicine Critical Care Medicine
DX: I12.9 Hypertensive chronic kidney disease with stage 1 through stage 4 chronic kidney disease, or unspecified chronic kidney disease (principal); I25.10 Atherosclerotic heart disease of native coronary artery without angina pectoris; N18.9 Chronic kidney disease, unspecified
CPT/HCPCS: 99214

== ENCOUNTER → 2025-02-11 14:47 | Outpatient (BNVA) | payer MEDICARE, MEDICAID, SELFPAY | PROVIDERS: PCP Internal Medicine; Visit Provider Internal Medicine Critical Care Medicine | DX: I12.9 Hypertensive chronic kidney disease with stage 1 through stage 4 chronic kidney disease, or unspecified chronic kidney disease (principal); I25.10 Atherosclerotic heart disease of native coronary artery without angina pectoris; N18.9 Chronic kidney disease, unspecified | CPT/HCPCS: 99212 ==

== ENCOUNTER → 2025-04-09 13:21 | Outpatient (REF) | payer MEDICARE, SELFPAY ==
--- OUTSIDE RECORDS SUMMARY | 2024-04-08 06:30 | XMS_ITS ---
Author Organization [facility] Address [address] [place] [address] Care Team Providers Care Manager Social Responsibility Name Role Phone Betzaida Corey Primary Care Provider Tona Vargas [phone] Encounters Encounter Location Date Provider Diagnosis [facility] [address] [place] [address] 04/08/2024 Tona Arias Plan Of Treatment No Information Progress Notes * Charity CERVANTESDOB:[birth year] (84 yo F)Acc No.[id number]:04/08/2024 Progress Note Patient: Charity HERNANDEZ Provider: Gwendolyn Arias DPM :1940 A ge:83 Y S ex:Female Date:04/08/2024 Address:[address] [place], [place] [id number] Pcp:Betzaida Corey Subjective: * Chief Complaints: * * Medical History: Objective: * Vitals: Assessment: Plan: * Treatment: * Images: * The named appointment provid er may or may not be the originator of this progress note, and it is not deemed complete until electronically signed by the appointment provider. Sign off status: Pending * Provider: Gwendolyn Arias DPM Date: 06/09/2023 Generated for Terrii helena/Saurav/eTransmitting on: 06/10/2024 08:48 PM EST
--- NOTE | 2025-04-09 13:24 | CA_ITS ---
Transthoracic Echocardiogram Patient (Last, First, Middle): Charity Estrada H Gender: Female Date of : 1940 Age: 84 Procedure Date: 04/09/2025 Procedure Type: Transthoracic Echocardiogram Location: OP Height: 149.86 cm Weight: 74.39 kg BSA: 1.69 m2 Heart Rate: 69 bpm BP: 162 / 72 mmHg Wire Temperer: JEANETTE Referring MD: Chandu Knight MD Goods Layer: Adolfo Caban MD Symptoms: I10 - Essential (primary) hypertension Study Quality: Adequate ECG Rhythm: Sinus Conclusions: - 1. Normal LV ejection fraction of 60 65% with possible RCA territory wall motion abnormality 2. Mild aortic stenosis 3. Upper limits of normal RV systolic pressure 4. No gross pericardial effusion Findings Left Ventricle Normal left ventricular size, thickness, and systolic function. The visually estimated ejection fraction is between 60-65%. Spectral Doppler is indicative of an impaired relaxation filling pattern. E/E prime ratio is between 8 and 15 consistent with indeterminate filling pressures. possible basal inferior and inferoseptal hypokinesis, difficult to assess due to off axis views Right Ventricle Normal right ventricular cavity size and systolic function. Atria The left atrium is likely dilated. There is no evidence of interatrial shunt. The right atrium is normal in size. Aortic Valve The aortic valve was not well visualized. There is mild aortic valve stenosis. The peak aortic gradient is 16 mmHg.The mean gradient is 8 mmHg. The aortic valve area is 1.67 cm2. There is no aortic valve regurgitation. Mitral Valve There is mild anterior and posterior mitral leaflet thickening. There is mild mitral annular calcification. There is trace mitral valve regurgitation. There is no mitral valve stenosis. Pulmonic Valve The pulmonic valve was not well visualized. Tricuspid Valve Likely normal tricuspid valve structure and function. There is mild tricuspid valve regurgitation. Normal right atrial pressure. There is no evidence of pulmonary hypertension. Great Vessels The pulmonary artery was not well visualized. There is no dilatation of the ascending aorta measuring 3.00 cm. Small plaque is seen in the sino tubular ridge. Venous The inferior vena cava is normal in size and collapses greater than 50% with inspiration. Pericardium/Pleural There is no evidence of pericardial effusion. Prior Study Comparison No prior study available for comparison. Measurements 2D Linear Measurements IVSd: 1.01 0.6-0.9/0.6-1.0 cm LVIDd: 4.54 3.9-5.3/4.2-5.9 cm LVIDd Index: 2.69 2.4-3.2/2.2-3.1 cm/m2 LVIDs: 3.43 2.0-3.6 cm LVPWd: 1.06 0.7-1.1 cm LA Diam: 3.60 2.7-3.8/3.0-4.0 cm LAIDs Index: 2.13 1.5-2.3 cm/m2 LV Mass: 222.53 67-162/88-224 g LV Mass Index: 131.67 43-95/49-115 g/m2 LVOT Diam: 1.80 3.0+(-)1.3 cm 2D Systolic Function EF 4C: 63.50 >55% EF 2C: 65.50 >55% EF BiP: 62.70 >55% Mitral Valve MV Pk E: 0.94 MV PK A: 1.24 MV Decel Time: 329.00 E/A: 0.80 E'Lateral: 5.33 E'Medial: 5.44 E/E' Med: 17.20 E/E' Lat: 17.50 PHT: 96.00 MVA PHT: 2.29 Decel [place]: 2.84 Aortic Valve AoV Pk Travis: 1.99 AoV Mn Travis: 1.35 AoV VTI: 0.46 AoV Pk Grad: 16.00 Aov Mn Grad: 8.00 YOLANDA Cont.VTI: 1.67 LVOT LVOT Pk Travis: 1.19 LVOT Mn Travis: 0.88 LVOT VTI: 0.30 LVOT Pk Grad: 6.00 LVOT Mn Grad: 3.00 LVOT Diam: 1.80 LVOT Area: 2.54 Diastolic Function MV Pk E: 0.94 MV Pk A: 1.24 E/A: 0.80 E'Medial: 5.44 E/E' Med: 17.20 E' Laterial: 5.33 E/E' Lat: 17.50 Right Ventricle TAPSE (mm): 22.60 TVS' Travis: 11.50 Tricuspid Valve TR Pk Travis: 2.90 TR Pk Grad: 34.00 RA Press: 3.00 RVSP: 37.00 Great Vessels Aorta Sinus of Valsalva: 2.86 2.0-3.5 cm Ao Asc: 3.00 2.1-3.4 cm Pulmonary Veins Pulm Vein S/D 1.60 Updated in Other Vendor System with Status of Final Adolfo Caban MD electronically signed on 04/09/2025 4:47:46 PM with status of Final
--- OUTSIDE RECORDS SUMMARY | 2025-04-09 20:48 | XMS_ITS | Patient Health Record ---
Author Organization [facility] Address [address] [place] [address] Care Team Providers Care Artificial Snow Making Machine Operator Name Role Phone Betzaida Corey Primary Care Provider Tona Vargas Unavailable [phone] Allergies Allergen (clinical drug ingredient) Drug/Non Drug [...] Problem Acquired hammer toe of right foot (1400832693992186 ) Other hammer toe(s) (acquired), right foot (M20.41) Active confirmed Problem Acquired hammer toe of left foot (0812038338014083 ) Other hammer toe(s) (acquired), left foot (M20.42) Active confirmed Problem Polyneuropathy due to diabetes mellitus type I (758206269) Type 1 diabetes mellitus with diabetic polyneuropathy (E10.42) Active confirmed Problem Polyneuropathy due to type 2 diabetes mellitus (274648409) Type 2 diabetes mellitus with diabetic polyneuropathy (E11.42) Active confirmed Problem Plantar fasciitis of left foot (3701636736128496 1) Plantar fasciitis of left foot (M72.2) Active confirmed Problem Interstitial myositis (31264198) Interstitial myositis of left foot (M60.172) Active confirmed Plan Of Treatment No Information Insurance Providers Payer Name Payer Address Payer Phone Subscriber Number Group Number Insured Name Patient Relationship to Insured Coverage Start Date Coverage End Date [facility] Adv [address] [place] [id number] Charity Win Self - patient is the insured Medical (General) History Medical History History ICD Code Arthritis asthma Back,Hip,and Knee pain Diabetic Diverticulosis High blood pressure Poor circulation sinusitis Osteoporosis Surgical History Surgery Date(Month/Year) cholecystectomy 2019
--- OUTSIDE RECORDS SUMMARY | 2025-04-09 20:49 | XMS_ITS | Patient Health Record ---
Author Organization [facility] Billing Info Address [address] [place], [place] [address] Care Team Providers Care Window And Door Installer Name Role Phone DontaeSelvin Primary Care Provider [...] Problem Status W/U Status Risk Notes Problem [id number] Asymptomatic gallstones (K80.20) Active confirmed Plan Of Treatment No Information Insurance Providers Payer Name Payer Address Payer Phone Subscriber Number Group Number Insured Name Patient Relationship to Insured Coverage Start Date Coverage End Date [facility] [address] [place], [place] [id number] Charity Douglas Self - patient is the insured 8 Medical (General) History Medical History History ICD Code gallbladder disease hypertension diabetes heart disease Surgical History Surgery Date(Month/Year) hysterectomy full 1987 Hospitalization History Reason Date(Month/Year) right side chest pain 11/20/17
== END ==
LOC: HO.CARD 13:21
PROVIDERS: PCP Internal Medicine; Visit Provider Internal Medicine Critical Care Medicine
DX: I12.9 Hypertensive chronic kidney disease with stage 1 through stage 4 chronic kidney disease, or unspecified chronic kidney disease (principal); N18.9 Chronic kidney disease, unspecified; I25.10 Atherosclerotic heart disease of native coronary artery without angina pectoris
CPT/HCPCS: 93306

== ENCOUNTER → 2025-04-09 13:24 | Outpatient (BNV) | payer MEDICARE, SELFPAY | PROVIDERS: PCP Internal Medicine; Visit Provider Internal Medicine Cardiovascular Disease | DX: I35.0 Nonrheumatic aortic (valve) stenosis (principal) | CPT/HCPCS: 93306 ==